=== PATIENT | male | born 1955 | race Caucasian/White ===

== ENCOUNTER 2020-07-03 09:06 | Emergency (ER) | payer OTHER, SELFPAY ==
[2020-07-03 09:17] VITALS: BP 135/74; PULSE 62; RESP 19; TEMP 36.7; O2SAT 98; BMI 31.1
--- NOTE | 2020-07-03 09:33 | HMH.EDUTC ---
[facility] [place] Clinical Impression: Urinary tract infection in male, Urinary retention Disposition: Home, Self-Care Condition on Discharge: Good Instructions: Urinary Tract Infection, Urine Culture, DI for Urinary Retention in Men Additional Instructions: Follow up with the urologist (Dr. Cobos). I put in a referral, but you need to call and schedule an appointment for further evaluation. Follow up with your regular doctor. We will give you a list of the ones that are taking new patients. Take the medications as directed. GO TO THE ER FOR ANY WORSENING SYMPTOMS OR CONCERNS, ESPECIALLY ANY FEVER OR WORSENING URINARY SYMPTOMS Prescriptions: Ciprofloxacin HCl [Cipro 500mg Tab] 500 mg PO BID 14 Days #28 tab Transmission Status: Received by [id number] Referrals: Shun Strauss DO [Primary Care Provider] - Kody Cobos MD [Staff Physician] - Time of Disposition: 09:45 Medical Decision Making - Medical Records Medical records reviewed: No: I reviewed the patient's medical records. - Terrence Inquiry Pt receiving controlled substance: No Vital Signs: 07/03/20 09:17 07/03/20 09:35 Temperature 98.1 F 98.1 F Temperature Source Oral Oral Pulse Rate 62 Pulse Rate [Left] 62 Respiratory Rate 19 19 Blood Pressure 135/74 Blood Pressure [Right Arm] 135/74 Blood Pressure Mean [Right Arm] 94 Blood Pressure Source Automatic Cuff Blood Pressure Source [Right Arm] Automatic Cuff Blood Pressure Position Sitting Blood Pressure Position [Right Arm] Sitting 02 Sat by Pulse Oximetry 98 Oxygen Delivery Method Room Air Room Air - Lab Data Lab results reviewed: Yes: I reviewed the patient's lab results. Lab Results 07/03/20 09:30: Urine Color Yellow, Urine Appearance Cloudy, Urine pH 7.5, Ur Specific [place] 1.020, Urine Protein Negative, Urine Glucose (UA) Negative, Urine Ketones Negative, Urine Blood 3+, Urine Nitrate Negative, Urine Bilirubin Negative, Urine Urobilinogen 1.0, Ur Leukocyte Esterase Negative, Urine RBC 5-10, Urine WBC 10-20, Ur Squamous Epith Cells Occasional, Urine Bacteria 2+ Orders (Tests/Meds): ORDERS Category Date Time Status Urine Culture Stat Micro 07/03/20 09:30 Received [facility] [place] - General Stated complaint: urnin problems Time Seen by Provider: 07/03/20 09:33 - History of Present Illness Provider Complaint: He c/o burning while urinating and urinary frequency. The urinary frequency is chronic, but it got worse 2 days ago. That is when the dysuria started too. He has noticed a small amount of bright red blood in his urine at times too over the past couple of days. He has a history of urinary retention. Before he moved here he was followed by urology in [place], [place]. He states that nothing really helped (medication and botox injections). - Related Data Previous Rx's Medication Instructions Recorded polyethylene glycoL 3350 [Miralax 17 gm PO DAILY #1 bottle 10/10/19 Powder] Ciprofloxacin HCl [Cipro 500mg 500 mg PO BID 14 Days #28 tab 07/03/20 Tab] Allergies Allergy/AdvReac Type Severity Reaction Status Date / Time amoxicillin [From Augmentin] Allergy Verified 10/10/19 13:02 clavulanic acid Allergy Verified 10/10/19 13:02 [From Augmentin] [facility] History - Hepatitis A Screen Attestation statement:: This patient has been screened for Hepatitis A risk factors. I have reviewed the patient's past medical history: Yes - Social History Alcohol Intake: never Occupational Status: other Housing: house ROS Obtained: Yes All systems reviewed & no additional complaints - Constitutional Constitutional: Denies chills, Denies fever(s), Denies poor appetite, Reports malaise - Eyes Eyes: Denies eye discharge - ENT Ears, Nose, Mouth, and Throat: Denies dizziness, Denies otalgia, Denies sore throat - Cardiovascular Cardiovascular: Denies chest pain - Respiratory Respiratory: No chest congestion, No cough -
[2020-07-03 09:35] VITALS: BP 135/74; PULSE 62; RESP 19; TEMP 36.7; O2SAT 98
[2020-07-03 09:56] LABS: Microscopic, Urine URINE MICROSCOPIC (MICROSCOPIC)
[2020-07-03 09:58] LABS: Appearance,Urine CLOUDY (Clear); Bilirubin,Urine Negative (Negative); Blood, Urine 3+ (Negative); Color,Urine YELLOW (Yellow); Glucose,Urine (UA) Negative (Negative); Ketones,Urine Negative (Negative); Leukocyte Esterase,Urine Negative (Negative); Nitrate,Urine Negative (Negative); PH,Urine 7.5 (5.0-8.5); Protein,Urine Negative (Negative)
[2020-07-03 10:14] LABS: Bacteria,Urine 2+ /lpf; Squamous Epithelial Cell,Urine Occasional #/hpf (0-5)
== END 2020-07-03 09:58 | disposition home or self-care (01) ==
PROVIDERS: Emergency Provider Nurse Practitioner Family; PCP Internal Medicine
DX: N30.00 Acute cystitis without hematuria (principal)
CPT/HCPCS: 81001; 87086; 99201

== ENCOUNTER 2020-07-12 01:59 | Observation (INO) | payer OTHER, SELFPAY ==
[2020-07-12] VITALS (16 sets, daily range): BP systolic 116–169; BP diastolic 57–74; PULSE 67–94; RESP 17–34; TEMP 36.3–37.2; O2SAT 88–93; BMI 30.7; BMI 30.4
--- NOTE | 2020-07-12 02:08 | XR_ITS ---
PROCEDURE: XR CHEST 2V CLINICAL HISTORY: SOB Stage IV black lung disease COMPARISON: No exams were available for comparison FINDINGS: The cardiomediastinal silhouette and pulmonary vascularity are within normal limits. There are no previous exams available for comparison. There is diffuse prominence of the interstitium as well as diffuse bilateral nodular opacities. The largest nodular density is in the right upper lobe measuring 3 cm. No obvious effusions. No acute bony abnormalities. IMPRESSION: Diffuse prominence of the interstitium with multiple bilateral ill-defined nodular opacities of the largest in the right upper lobe at 3 cm. Interstitial lung disease/coworkers pneumoconiosis is a consideration given patient's history. However, 1 cannot exclude the possibility of underlying pneumonia. Metastatic disease is also consideration. Please correlate with previous studies and patient's history. Chest CT may provide further evaluation. Dictated by: Himanshu Schneider MD 07/12/2020 06:26 Himanshu Schneider MD in [place] 07/12/2020 06:26
[2020-07-12 02:23] LABS: Basophils # 0.1 K/mm3 (0-0.2); Basophils % 0.3 % (0.1-2.0); Eosinophils # 0.5 K/mm3 (0.0-0.4); Eosinophils % 2.6 % (0.1-12.0); Hemoglobin 16.1 g/dL (14.1-18.0); Lymphocytes # 1.8 K/mm3 (0.7-4.5); Lymphocytes % 9.3 % (10-50); Mean Corpuscular Hemoglobin 32.5 pg (27.0-31.2); Mean Corpuscular Volume 92.7 fl (80-94); Mean Platelet Volume 8.7 fl (7.4-10.4); Monocytes # 0.4 K/mm3 (0.1-1.0); Monocytes % 2.1 % (1.7-9.3); Neutrophils # 16.3 K/mm3 (1.8-7.8); Neutrophils % 85.7 % (37.0-80.0); Platelet Count 292 K/mm3 (142-424); Red Blood Count 4.96 M/mm3 (4.60-6.20); Red Cell Distribution Width 12.6 % (11.5-17.5)
[2020-07-12 02:26] LABS: MANUAL DIFFERENTIAL MANUAL DIFFERENTIAL (MANUAL DIFF)
[2020-07-12 02:32] LABS: Alanine Aminotransferase 29 U/L (12-78); Albumin Level 4.4 g/dl (3.5-5.0); Albumin/Globulin Ratio 1.3 (1.1-1.8); Alkaline Phosphatase 102 U/L (38-126); Anion Gap 11.5 mEq/L (5-15); Aspartate Amino Transferase 39 U/L (17-59); Bilirubin,Total 0.6 mg/dl (0.2-1.3); Blood Urea Nitrogen 21 mg/dl (9-20); Calcium 10.8 mg/dl (8.4-10.2); Carbon Dioxide 30 mmol/L (22.0-30.0); Chloride 102 mmol/L (98-107); Creatinine Clearance Estimated 75 mL/min (50-200); Estimated Glomerular Filt Rate 61 ml/min (>60); GFR (African American) 74 ML/MIN (>60); Globulin 3.3 g/dL (1.3-3.2); Glucose 111 mg/dl (74-100); Potassium 3.5 mmoL/L (3.5-5.1); Sodium 140 mmol/L (136-145); Total Protein,Serum 7.7 g/dl (6.3-8.2)
[2020-07-12 02:58] LABS: Microscopic, Urine URINE MICROSCOPIC (MICROSCOPIC)
--- NOTE | 2020-07-12 02:58 | HMH.EDGENADL ---
ED Disposition Clinical Impression: Pneumonia Qualifiers: Pneumonia type: due to unspecified organism Laterality: right Lung location: upper lobe of lung Qualified Code(s): J18.9 - Pneumonia, unspecified organism Disposition: Admitted As Inpatient Condition on Discharge: Good Referrals: Shun Strauss DO [Primary Care Provider] - - Critical Care Critical Care Time: No Attestation: On 07/12/20, the high probability of a clinically significant, sudden or life threatening deterioration of the following system(s) required my full and direct attention, intervention and personal management. The time I documented below is in addition to time spent performing reported procedures but includes the following listed in this critical care notation. Medical Decision Making - Terrence Inquiry Pt receiving controlled substance: No Vital Signs: 07/12/20 01:59 Temperature 98.9 F Temperature Source Oral Pulse Rate [Left Radial] 91 H Respiratory Rate 17 Blood Pressure [Right Arm] 166/65 H Blood Pressure Mean [Right Arm] 98 Blood Pressure Source [Right Arm] Automatic Cuff Blood Pressure Position [Right Arm] Sitting 02 Sat by Pulse Oximetry 88 L Oxygen Delivery Method Room Air - Lab Data Lab Results 07/12/20 02:16: WBC 19.0 H, RBC 4.96, Hgb 16.1, Hct 46.0, MCV 92.7, MCH 32.5 H, MCHC 35.0, RDW 12.6, Plt Count 292, MPV 8.7, Neut % (Auto) 85.7 H, Lymph % (Auto) 9.3 L, [place] % (Auto) 2.1, Eos % (Auto) 2.6, Baso % (Auto) 0.3, Neut # (Auto) 16.3 H, Lymph # (Auto) 1.8, [place] # (Auto) 0.4, Eos # (Auto) 0.5 H, Baso # (Auto) 0.1 07/12/20 02:16: Sodium 140, Potassium 3.5, Chloride 102, Carbon Dioxide 30, Anion Gap 11.5, BUN 21 H, Creatinine 1.20, Estimated Creat Clear 75, Estimated GFR 61, Est GFR ( Amer) 74, Glucose 111 H, Calcium 10.8 H, Total Bilirubin 0.6, AST 39, ALT 29, Alkaline Phosphatase 102, Total Protein 7.7, Albumin 4.4, Globulin 3.3 H, Albumin/Globulin Ratio 1.3 Result diagrams: 07/12/20 02:16 07/12/20 02:16 Orders (Tests/Meds): ED MEDICATIONS Generic Name Dose Route Start Last Admin Trade Name Freq PRN Reason Stop Dose Admin Piperacillin Sod/Tazobactam 50 mls @ 100 mls/hr 07/12/20 03:00 Sod 3.375 gm/ Sodium Chloride IV 07/26/20 02:59 Q6H JASS Protocol Lactated Ringer's 1,000 mls @ 50 mls/hr 07/12/20 03:00 Lactated Ringer's 1000 Ml Bag IV 08/11/20 02:59 .Q20H JASS Discontinued Medications Generic Name Dose Route Start Last Admin Trade Name Freq PRN Reason Stop Dose Admin Azithromycin 500 mg 07/12/20 02:49 Zithromax 250mg Tablet PO 07/12/20 02:50 ONCE ONE Protocol Ondansetron HCl 4 mg 07/12/20 02:37 07/12/20 02:46 Zofran 4mg/2ml Vial IV 07/12/20 02:38 4 mg ONCE ONE Administration ORDERS Category Date Time Status XR chest 2V Stat Exams 07/12/20 02:08 Ordered Complete Blood Count Auto Diff Stat Lab 07/12/20 02:16 Results Covid-19 IgG/IgM ([facility]) Stat Lab 07/12/20 02:43 Ordered Lactic Acid Stat Lab 07/12/20 02:45 Ordered Urinalysis and Microscopic Stat Lab 07/12/20 02:40 Received Blood Culture Stat Micro 07/12/20 02:45 Ordered Medical Decision Narrative: In summary patient is a 65-year-old male with stage IV black lung presenting for cough and dyspnea. Patient is hemodynamically stable, not tachycardic, however patient is on oxygen. Patient's chest x-ray concerning for opacities in right upper lobe, due to patient's recent full course of ciprofloxacin, concern for Pseudomonas or staph is higher for pneumonia. Therefore patient was started on vancomycin, Zithromax, Zosyn. Patient denies any allergies to penicillin or amoxicillin that he knows of. Patient labs demonstrating a white count of 19, consistent with infection. Patient was admitted to medicine for further work-up. blood cultures ordered. Patient amenable to plan. General Adult HPI - General Chief complaint: Shortness of Breath/Dyspnea Stated complaint: cough,
[2020-07-12 03:02] LABS: Appearance,Urine CLEAR (Clear); Bilirubin,Urine Negative (Negative); Blood, Urine Negative (Negative); Color,Urine YELLOW (Yellow); Glucose,Urine (UA) Negative (Negative); Ketones,Urine Negative (Negative); Leukocyte Esterase,Urine Negative (Negative); Nitrate,Urine Negative (Negative); Protein,Urine Negative (Negative); Urobilinogen,Urine 0.2 EU/dl (0.2)
[2020-07-12 03:21] LABS: Eosinophils % 2 % (0-3); Lymphocytes % 13 % (10-50); Neutrophils % 84 % (42-76); Platelet Estimate Normal; RBC Morphology Normal; Total Cells Counted 100
[2020-07-12 03:23] LABS: Amorphous Sediment,Urine Trace /lpf; Bacteria,Urine Trace /lpf; WBC,Urine Occasional #/hpf (0-3)
[2020-07-12 03:29] LABS: Lactic Acid 1.1 mmol/L (0.7-2.1)
[2020-07-12 03:37] LABS: Coronavirus 19 IgG Antibody Negative (Negative); Coronavirus 19 IgM Antibody Negative (Negative)
--- NOTE | 2020-07-12 04:01 | PC.NURSE ---
spoke with pharmacy for vanc dose. suggested to give vanc 1500mg Q12H
--- NOTE | 2020-07-12 04:05 | PC.NURSE ---
report called to BRUCE Comer
--- NOTE | 2020-07-12 04:37 | PC.NURSE ---
patient up to floor via wheelchair.
--- NOTE | 2020-07-12 07:39 | P.CONPHA_ITS ---
[facility] [place] Pharmacy VTE Monitoring - Patient Demographics Admission date: 07/12/20 Report Date: 07/12/20 Time: 07:39 Allergies/Adverse Reactions: Patient Allergies clavulanic acid [From Augmentin] Allergy (Verified 10/10/19 13:02) Height: 1.65 m Weight: 82.826 kg Patient Problems: Current Active Problems Pneumonia (Acute) - VTE Risk Labs: VTE Related Lab Results Hgb 16.1 g/dL (14.1-18.0) 07/12/20 02:16 Hct 46.0 % (42.0-52.0) 07/12/20 02:16 Plt Count 292 K/mm3 (142-424) 07/12/20 02:16 BUN 21 mg/dl (9-20) H 07/12/20 02:16 Creatinine 1.20 mg/dl (0.66-1.25) 07/12/20 02:16 Estimated Creat Clear 75 mL/min (50-200) 07/12/20 02:16 Was VTE Risk Assessment Performed: No VTE Score: 3 VTE Risk Level: Low Risk Clinical Trial Participant: No - Prophylaxis VTE Prophylaxis Ordered?: Yes Types of VTE Prophylaxis: TEDS Knee High
--- NOTE | 2020-07-12 08:10 | CT_ITS ---
PROCEDURE: CT CHEST WO CON CLINICAL INDICATION: pneumonia Pneumonia, history of coal workers pneumoconiosis. COMPARISON: No exams were available for comparison TECHNIQUE: Axial images obtained with sagittal and coronal reformats. All CT scans at the facility use one or more dose reduction, viz: automated exposure control, ma/kV adjustment per patient size (including targeted exams where dose is matched to indication, i.e. head), or iterative reconstruction technique. FINDINGS: There are no previous exams available for comparison. Scattered small nodes are present in the mediastinum some of which are calcified. Coronary artery calcifications are present. Gynecomastia noted incidentally. There is mild nonspecific thickening of the distal esophagus. There is diffuse mosaic attenuation of the lungs bilaterally. No effusions. There is consolidation in the posterior aspect of the upper lobes in the superior segment of the lower lobes. There are numerous bilateral noncalcified pulmonary nodules. The largest is in the right upper lobe measuring 2.9 by 1.9 cm. This nodule has spiculated margins.. One nodule in the right upper lobe measures 12 mm and has an extension to the pleural surface laterally. There are other noncalcified nodules in the right upper lobe. Noncalcified nodules are also present in the left upper lobe measuring up to 1.4 cm. No acute bony anomalies. Upper abdominal images demonstrates a mildly prominent retroperitoneal lymph node anterior to the left adrenal gland measuring 1.5 cm. Possible cholelithiasis IMPRESSION: 1. Multiple bilateral pulmonary nodules. The largest is in the right upper lobe at 2.9 cm. This could represent metastatic disease.. 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 Progressive massive fibrosis would be included in the differential diagnosis. Correlation with old exams are needed. 2. A diffuse ground-glass/mosaic attenuation of the lungs with consolidation/atelectatic change in the upper lobes posteriorly in the superior segment of the lower lobes. Diffuse infection/inflammation considered. Consider atypical pneumonia, viral pneumonia/Covid 19 pneumonia. 3. Mildly prominent lymph node in the upper retroperitoneum. Dictated by: Himanshu Schneider MD 07/12/2020 09:09 Himanshu Schneider MD in [place] 07/12/2020 09:09
--- NOTE | 2020-07-12 08:10 | HMH.PHACONS ---
- Pharmacy Consult Date: 07/12/20 Time: 08:10 Referring provider: DR. ZHONG Reason for Consult:: VANCOMYCIN DOSING Allergies and ADEs:: Allergies Allergy/AdvReac Type Severity Reaction Status Date / Time clavulanic acid Allergy Verified 10/10/19 13:02 [From Augmentin] Home Medications:: Home Medications Medication Instructions Recorded Confirmed Type Amlodipine Besylate [Amlodipine 5 mg PO DAILY 07/12/20 07/12/20 History 5mg tab] Aspirin [Adult Aspirin Regimen] 81 mg PO DAILY 07/12/20 07/12/20 History Bimatoprost [Lumigan 0.01% Ophth 2.5 ml OP DAILY 07/12/20 07/12/20 History Soln 2.5mL] Budesonide/Formoterol Fumarate 2 puffs IH BID 07/12/20 07/12/20 History [Symbicort 160-4.5 Mcg Inhaler] Ciprofloxacin HCl [Cipro 500mg 500 mg PO BID 07/12/20 07/12/20 History Tab] Diclofenac Sodium [Diclofenac 75mg 75 mg PO BID 07/12/20 07/12/20 History Tab] Donepezil HCl [Aricept 10mg 10 mg PO HS 07/12/20 07/12/20 History tablet] Levocetirizine Dihydrochloride 5 mg PO DAILY 07/12/20 07/12/20 History Melatonin 5 mg PO HS 07/12/20 07/12/20 History Montelukast Sodium 10 mg PO PM 07/12/20 07/12/20 History Rosuvastatin Calcium 10 mg PO DAILY 07/12/20 07/12/20 History Height: 1.65 m Weight: 82.826 kg Laboratory Results:: Laboratory Results - last 24 hr 07/12/20 02:16: WBC 19.0 H, RBC 4.96, Hgb 16.1, Hct 46.0, MCV 92.7, MCH 32.5 H, MCHC 35.0, RDW 12.6, Plt Count 292, MPV 8.7, Neut % (Auto) 85.7 H, Lymph % (Auto) 9.3 L, [place] % (Auto) 2.1, Eos % (Auto) 2.6, Baso % (Auto) 0.3, Neut # (Auto) 16.3 H, Lymph # (Auto) 1.8, [place] # (Auto) 0.4, Eos # (Auto) 0.5 H, Baso # (Auto) 0.1, Total Counted 100, Neutrophils % (Manual) 84 H, Lymphocytes % (Manual) 13, Eosinophils % (Manual) 2, Basophils % (Manual) 1.0, Platelet Estimate Normal, RBC Morphology Normal 07/12/20 02:16: Sodium 140, Potassium 3.5, Chloride 102, Carbon Dioxide 30, Anion Gap 11.5, BUN 21 H, Creatinine 1.20, Estimated Creat Clear 75, Estimated GFR 61, Est GFR ( Amer) 74, Glucose 111 H, Calcium 10.8 H, Total Bilirubin 0.6, AST 39, ALT 29, Alkaline Phosphatase 102, Total Protein 7.7, Albumin 4.4, Globulin 3.3 H, Albumin/Globulin Ratio 1.3 07/12/20 02:16: SARS-CoV-2 IgG Ab (Rapid) Negative, SARS-CoV-2 IgM Ab (Rapid) Negative 07/12/20 02:40: Urine Color Yellow, Urine Appearance Clear, Urine pH 7.0, Ur Specific [place] 1.020, Urine Protein Negative, Urine Glucose (UA) Negative, Urine Ketones Negative, Urine Blood Negative, Urine Nitrate Negative, Urine Bilirubin Negative, Urine Urobilinogen 0.2, Ur Leukocyte Esterase Negative, Urine WBC Occasional, Amorphous Sediment Trace, Urine Bacteria Trace 07/12/20 02:50: Lactate 1.1 Medical History: Reports:: Hyperlipidemia, Hypertension, Myocardial Infarction Denies:: Cancer, Diabetes Mellitus Type 1, Diabetes Mellitus Type 2, Internal Pacemaker, MRSA Assessment and Plan - Assessment and plan all Dx Assessment and Plan for all problems:: BASED ON PATIENT FACTORS, RECOMMEND VANCOMYCIN 1500 MG IV Q18H. PHARMACY WILL FOLLOW DAILY AND ADJUST APPROPRIATE.
--- NOTE | 2020-07-12 09:30 | CT_ITS ---
PROCEDURE: CT ANGIO CHEST CLINCIAL INDICATION: r/o pe Shortness of air, pneumonia, pulmonary masses COMPARISON: No exams were available for comparison TECHNIQUE: IV Contrast: 70ML OPTIRAY 350 Axial images obtained with sagittal and coronal reformats. All CT scans at the facility use one or more dose reduction, viz: automated exposure control, ma/kV adjustment per patient size (including targeted exams where dose is matched to indication, i.e. head), or iterative reconstruction technique. FINDINGS: No evidence of aortic aneurysm or dissection. Pulmonary artery opacification is somewhat limited despite repeating the exam. No evidence of aortic aneurysm or dissection. No mediastinal or hilar mass. There are few scattered small mediastinal lymph nodes. Mild nonspecific thickening of the distal esophagus. No change in the persistent bilateral pulmonary nodules and right upper lobe mass with diffuse ground-glass/mosaic attenuation with some consolidation in the upper lobes posteriorly in the superior segment of the lower lobes. No effusions. No central obstructing lesions. Upper abdominal images show cholelithiasis. Mild gynecomastia. IMPRESSION: 1. No evidence of pulmonary embolus. 2. No change multiple bilateral pulmonary nodules and right upper lobe mass which could be neoplastic/metastatic disease or related to progressive massive fibrosis in this patient with history of coal workers pneumoconiosis. The CT findings however less typical for that etiology. 3. Persistent diffuse ground-glass attenuation of the lungs with consolidation in the upper lobes posteriorly and in the lower lobes posteriorly suggesting bilateral pneumonia. Consider atypical pneumonia, viral pneumonia/Covid 19 pneumonia Dictated by: Himanshu Schneider MD 07/12/2020 12:10 Himanshu Schneider MD in [place] 07/12/2020 12:10
--- NOTE | 2020-07-12 10:15 | HMH.PHAINT ---
home medication reconciliation completed using list from [facility] and pt interview.
--- NOTE | 2020-07-12 10:27 | HMH.PULMCON ---
*Admission Date: 07/12/20 *Reason for consult:: Acute hypoxic respiratory failure *History of present illness: Mr. 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 Patient on further questioning states that he has been complaining of cough for the last 10 days not related really worsening but however yesterday night all of a sudden he noted to have acute worsening shortness of breath associated with cough and wheeze. Patient did not complaining of any fevers or any chills. Patient only complains of intermittent productive cough with whitish phlegm On this visit patient denies fevers, denies chills, denies night sweats, denies hemoptysis, denies weight loss and denies loss of appetite. Patient has previously followed at [facility] with a lung doctor, receiving annual CT scans. [facility] History Medical History: Reports:: Hyperlipidemia, Hypertension, Myocardial Infarction Denies:: Cancer, Diabetes Mellitus Type 1, Diabetes Mellitus Type 2, Internal Pacemaker, MRSA *Have you ever received a pneumonia vaccine?: Yes *Have you received a flu vaccine this season?: Yes Other Medical History: Reports: Other Laterality Cases: Bilateral: Arthroscopy Knee Other Surgeries: Yes: Hernia Repair. No: Pacemaker Amputation: No Fractures: No - *Social History Last grade of school completed: None Smoking Status: Never smoker Alcohol Intake: never *Occupational Status:: disabled Housing: house Household Members: significant other, children *Travel in the last 8 weeks: None Family Hx:: Other [facility] Pulmonology ROS - Review of Systems Review of systems:: pertinent systems reviewed and negative unless documented below - *Respiratory Respiratory: Yes shortness of breath, Yes cough, Yes dyspnea on exertion Meds Home Medications Medication Instructions Recorded Confirmed Type Amlodipine Besylate [Amlodipine 5 mg PO DAILY 07/12/20 07/12/20 History 5mg tab] Aspirin [Adult Aspirin Regimen] 81 mg PO DAILY 07/12/20 07/12/20 History Bimatoprost [Lumigan 0.01% Ophth 1 drop OP PM 07/12/20 07/12/20 History Soln 2.5mL] Budesonide/Formoterol Fumarate 2 puffs IH BID 07/12/20 07/12/20 History [Symbicort 160-4.5 Mcg Inhaler] Ciprofloxacin HCl [Cipro 500mg 500 mg PO BID 07/12/20 07/12/20 History Tab] Diclofenac Sodium [Diclofenac 75mg 75 mg PO BID 07/12/20 07/12/20 History Tab] Donepezil HCl [Aricept 10mg 10 mg PO HS 07/12/20 07/12/20 History tablet] Levocetirizine Dihydrochloride 5 mg PO DAILY 07/12/20 07/12/20 History Melatonin 5 mg PO HS 07/12/20 07/12/20 History Montelukast Sodium 10 mg PO PM 07/12/20 07/12/20 History Rosuvastatin Calcium 10 mg PO HS 07/12/20 07/12/20 History Allergies Allergy/AdvReac Type Severity Reaction Status Date / Time clavulanic acid Allergy Verified 10/10/19 13:02 [From Augmentin] Exam Vital signs and Labs for Last 24 Hours: Temp Pulse Resp BP Pulse Ox 98.4 F 67 18 127/62 88 L 07/12/20 08:00 07/12/20 10:05 07/12/20 08:00 07/12/20 08:00 07/12/20 10:05 Laboratory Results - last 24 hr 07/12/20 02:16: WBC 19.0 H, RBC 4.96, Hgb 16.1, Hct 46.0, MCV 92.7, MCH 32.5 H, MCHC 35.0, RDW 12.6, Plt Count 292, MPV 8.7, Neut % (Auto) 85.7 H, Lymph % (Auto) 9.3 L, [place] % (Auto) 2.1, Eos % (Auto) 2.6, Baso % (Auto) 0.3, Neut # (Auto) 16.3 H, Lymph # (Auto) 1.8, [place] # (Auto) 0.4, Eos # (Auto) 0.5 H, Baso # (Auto) 0.1, Total Counted 100, Neutrophils % (Manual) 84 H, Lymphocytes % (Manual) 13, Eosinophils % (Manual) 2, Basophils % (Manual) 1.0, Platelet Estimate Normal, RBC Morphology Normal 07/12/20 02:16: Sodium 140, Potassium 3.5, Chloride 102, Carbon Dioxide 30, Anion Gap
[2020-07-12 11:33] LABS: Adenovirus,PCR Not Detected (NotDetected); Bordetella Pertussis Not Detected (NotDetected); Chlamydophila Pneumoniae, PCR Not Detected (NotDetected); Coronavirus 229E Not Detected (NotDetected); Coronavirus NL63 Not Detected (NotDetected); Coronavirus OC43 Not Detected (NotDetected); Coronovirus HKU1,PCR Not Detected (NotDetected); Human Metapneumovirus Not Detected (NotDetected); Influenza A, PCR Not Detected (NotDetected); Influenza AH1, 2009 Not Detected (NotDetected); Influenza AH1, PCR Not Detected (NotDetected); Influenza AH3,PCR Not Detected (NotDetected); Influenza B, PCR Not Detected (NotDetected); Mycoplasma Pneumoniae, PCR Not Detected (NotDetected); Parainfluenza 1, PCR Not Detected (NotDetected); Parainfluenza 2, PCR Not Detected (NotDetected); Parainfluenza 3, PCR Not Detected (NotDetected); Parainfluenza 4, PCR Not Detected (NotDetected); Respiratory Syncytial Virus Not Detected (NotDetected); Rhinovirus/Enterovirus Not Detected (NotDetected)
--- NOTE | 2020-07-12 13:08 | HMH.HP ---
*Admission Date: 07/12/20 *Chief complaint: soa *History of present illness: 65-year-old male with stage IV black lung presenting for cough and dyspnea to ed. Patient is on oxygen. Pt states for 2 days his breathing has become worse. Patient labs demonstrating a white count of 19, consistent with infection. Patient was admitted to medicine for further work-up. Pt states he does not have a pcp here just moved here from [place]. Worked in [employer] for 39 yrs. Pt states he is being followed by pulm. for his black lung. [facility] History I have reviewed the patient's past medical history: Yes Medical History: Reports:: Hyperlipidemia, Hypertension, Myocardial Infarction Denies:: Cancer, Diabetes Mellitus Type 1, Diabetes Mellitus Type 2, Internal Pacemaker, MRSA *Have you ever received a pneumonia vaccine?: Yes *Have you received a flu vaccine this season?: Yes Other Medical History: Reports: Other Laterality Cases: Bilateral: Arthroscopy Knee Other Surgeries: Yes: Hernia Repair. No: Pacemaker Amputation: No Fractures: No - *Social History Last grade of school completed: None Smoking Status: Never smoker Alcohol Intake: never *Occupational Status:: disabled Housing: house Household Members: significant other, children *Travel in the last 8 weeks: None Family Hx:: Other Review of Systems - Review of Systems Review of systems:: pertinent systems reviewed and negative unless documented below - Constitutional Denies fatigue, Denies weakness - Eyes Denies change in vision - ENT Denies bleeding gums, Denies neck pain - *Cardiovascular Denies chest pain at rest, Denies leg sores - *Respiratory Reports chest congestion, Reports cough, Reports shortness of breath - *Gastrointestinal Denies nausea, Denies vomiting - *Genitourinary Denies urinary hesitancy - *Musculoskeletal Denies joint pain - Integumentary/Breasts Denies rash - *Neurologic Denies behavioral changes - Psychiatric Denies lack of enjoyment, Denies panic attacks - Endocrine Denies flushing - Hematologic/Lymphatic Denies enlarged lymph nodes Meds Home Medications Medication Instructions Recorded Confirmed Type Amlodipine Besylate [Amlodipine 5 mg PO DAILY 07/12/20 07/12/20 History 5mg tab] Aspirin [Adult Aspirin Regimen] 81 mg PO DAILY 07/12/20 07/12/20 History Bimatoprost [Lumigan 0.01% Ophth 1 drop OP PM 07/12/20 07/12/20 History Soln 2.5mL] Budesonide/Formoterol Fumarate 2 puffs IH BID 07/12/20 07/12/20 History [Symbicort 160-4.5 Mcg Inhaler] Ciprofloxacin HCl [Cipro 500mg 500 mg PO BID 07/12/20 07/12/20 History Tab] Diclofenac Sodium [Diclofenac 75mg 75 mg PO BID 07/12/20 07/12/20 History Tab] Donepezil HCl [Aricept 10mg 10 mg PO HS 07/12/20 07/12/20 History tablet] Levocetirizine Dihydrochloride 5 mg PO DAILY 07/12/20 07/12/20 History Melatonin 5 mg PO HS 07/12/20 07/12/20 History Montelukast Sodium 10 mg PO PM 07/12/20 07/12/20 History Rosuvastatin Calcium 10 mg PO HS 07/12/20 07/12/20 History Allergies Allergy/AdvReac Type Severity Reaction Status Date / Time clavulanic acid Allergy Verified 10/10/19 13:02 [From Augmentin] Exam Vital signs and Labs for Last 24 Hours: Temp Pulse Resp BP Pulse Ox 98.4 F 67 18 127/62 88 L 07/12/20 08:00 07/12/20 10:05 07/12/20 08:00 07/12/20 08:00 07/12/20 10:05 Laboratory Results - last 24 hr 07/12/20 02:16: WBC 19.0 H, RBC 4.96, Hgb 16.1, Hct 46.0, MCV 92.7, MCH 32.5 H, MCHC 35.0, RDW 12.6, Plt Count 292, MPV 8.7, Neut % (Auto) 85.7 H, Lymph % (Auto) 9.3 L, [place] % (Auto) 2.1, Eos % (Auto) 2.6, Baso % (Auto) 0.3, Neut # (Auto) 16.3 H, Lymph # (Auto) 1.8, [place] # (Auto) 0.4, Eos # (Auto) 0.5 H, Baso # (Auto) 0.1, Total Counted 100, Neutrophils % (Manual) 84 H, Lymphocytes % (Manual) 13, Eosinophils % (Manual) 2, Basophils % (Manual) 1.0, Platelet Estimate Normal, RBC Morphology Normal 07/12/20 02:16: Sodium 140, Potassium 3.
--- NOTE | 2020-07-12 13:53 | PC.NURSE ---
RT administered Sodium Chloride neb 3ml to induce sputum, pt still could not produce a sample at this time. Cup left at bedside and pt encouraged to try and get sample at some point
--- NOTE | 2020-07-12 15:17 | CA_ITS ---
APPROVED REPORT EXAM: Comprehensive 2D, Doppler, and color-flow Echocardiogram Administrative Support Assistant: Nicolle Rae RVT Ht: 5 ft 5 in Wt: 182lbs BSA: 1.90 BP: 127/62 mmHg Indications: SOA,STAGE 4 BLACK LUNG,PNEUMONIA,STENT,HTN,HLD BUBBLE STUDY APPEARS NEGATIVE Echo Enhancing Agent Indication: Rule out Shunt Agent(s) / Amount(s) Used: Agitated Saline 10 cc 2D Dimensions LVOT 1.45 cm (M/F) 1.5-2.5 M-Mode Dimensions RVDd 2.47 cm (0.9-2.6) LVDd 4.10 cm (3.5-5.7) LVDs 2.89 cm (3.5-5.7) IVSd 1.14 cm (0.6-1.1) PWd 0.57 cm (0.6-1.1) EF (Teich) 57.00% FS 29.50% EDV (Teich) 74.20 mL ESV (Teich) 31.90 mL LV Diastology E/A Ratio 0.84 Mitral Valve MV A Velocity 82.00 (40-130 cm/s) Left Ventricle Left atrium is mildly enlarged, left ventricle is normal size, mild concentric left ventricular hypertrophy, visually estimated ejection fraction 55% with no regional wall motion abnormality. Grade 1 diastolic dysfunction seen without tissue Doppler evidence of raise left atrial pressure. Right Ventricle Right atrium and right ventricular normal size and contractility. Atria Intra-atrial septum is intact, there is no flow across the interatrial septum, agitated saline contrast reveals 25 intracardiac shunt. Aortic Valve Aortic valve is minimally thickened and fibrosed, there is no aortic stenosis or aortic insufficiency. Mitral Valve Mitral valve leaflets are minimally thickened, there is mild mitral regurgitation. Tricuspid Valve Tricuspid valve is grossly normal, there is mild tricuspid regurgitation, tricuspid regurgitation jet velocity is inadequate for calculation of the right ventricular systolic pressure. Pulmonic Valve Pulmonic valve is poorly visualized. Great Vessels Aortic root is normal size. Pericardium No significant pericardial effusion noted. Conclusion 1. Mildly enlarged left atrium, normal left ventricular size, mild concentric left ventricular hypertrophy, visually estimated ejection fraction 55% with no regional wall motion abnormality, grade 1 diastolic dysfunction seen without tissue Doppler evidence of raise left atrial pressure. 2. Mild mitral and tricuspid regurgitation. 3. Agitated saline contrast study fails to identify intracardiac shunt. 4. No significant pericardial effusion noted. Electronically signed by : Tavo Nunes, 07/15/2020 18:00:20
--- NOTE | 2020-07-12 15:36 | PC.NURSE ---
PT IS RESTING IN BED. NO COMPLAINTS OF DISCOMFORT. NOTIFIED THIS MORNING ABOUT PULMONOLOGY RECOMMENDATIONS AND HE STATED HE WAS OKAY WITH WHAT PULMONOLOGY SUGGESTED. NOTIFIED PHARMACY ABOUT PT POSSIBLY NEEDING ANTIBIOTICS CHANGED AND THEY STATED THEY WOULD TALK IT OVER WITH ABOUT STAYING WITH THE ANTIBIOTIC REGIMEN THAT WAS ALREADY ORDERED B/C PT HAD ALREADY FAILED OUTPATIENT TREATMENT. OF RIGHT NOW PT IS GETTING CEFIPIME, VANCOMYCIN AND LEVAQUIN. O2 SATURATION HAS MAINTAINED 88-90% T/O THE SHIFT ON 3.5 L NC. PT HAS NOT BEEN ON OXYGEN AT HOME. ACCORDING TO PT HE HAS BEEN FEELING REALLY GOOD AT HOME ALL THE WAY UP TILL THIS EPISODE STARTED. EATING AND DRINKING FAIR. LUNG SOUNDS CLEAR. BOWEL SOUNDS NORMAL. PT'S FAMILY CALLED WITH THE NAME AND NUMBER OF THE CLAIM REPRESENTATIVE PT FOLLOWED UP WITH AT [facility]. OFFICE IN [place] WAS NOTIFIED AND INFORMATION WAS FAXED TO BACK TO [facility]. WILL CONTINUE TO MONITOR.
--- NOTE | 2020-07-12 19:11 | PC.NURSE ---
report given to nettie
--- NOTE | 2020-07-12 19:16 | PC.NURSE ---
RT collected SPT and sent it to lab from 2nd floor.
--- NOTE | 2020-07-12 22:51 | PC.NURSE ---
Upon assessment, pt stated that he didn't sleep well overnight and has not had much sleep today. Pt requests medication for sleep. MD Alvarado notified. Benedryl 25 mg PO QHS ordered.
[2020-07-13] VITALS (10 sets, daily range): BP systolic 126–162; BP diastolic 46–79; PULSE 68–80; RESP 17–25; TEMP 36.4–36.9; O2SAT 90–95; BMI 30.5
[2020-07-13 07:15] LABS: Chloride 108 mmol/L (98-107); Potassium 3.9 mmoL/L (3.5-5.1); Sodium 137 mmol/L (136-145)
[2020-07-13 07:18] LABS: Anion Gap 13.9 mEq/L (5-15); Blood Urea Nitrogen 28 mg/dl (9-20); Calcium 9.8 mg/dl (8.4-10.2); Carbon Dioxide 19 mmol/L (22.0-30.0); Creatinine Clearance Estimated 81 mL/min (50-200); Estimated Glomerular Filt Rate 68 ml/min (>60); GFR (African American) 82 ML/MIN (>60); Glucose 195 mg/dl (74-100)
[2020-07-13 07:20] LABS: Eosinophils % 0.1 % (0.1-12.0); Hematocrit 39.2 % (42.0-52.0); Hemoglobin 13.4 g/dL (14.1-18.0); Lymphocytes # 0.6 K/mm3 (0.7-4.5); Lymphocytes % 4.3 % (10-50); Mean Corpuscular HGB Conc 34.3 g/dL (31.8-35.4); Mean Corpuscular Hemoglobin 31.8 pg (27.0-31.2); Mean Corpuscular Volume 92.7 fl (80-94); Mean Platelet Volume 8.9 fl (7.4-10.4); Monocytes # 0.3 K/mm3 (0.1-1.0); Monocytes % 2.1 % (1.7-9.3); Neutrophils # 13.7 K/mm3 (1.8-7.8); Neutrophils % 93.4 % (37.0-80.0); Platelet Count 221 K/mm3 (142-424); Red Blood Count 4.23 M/mm3 (4.60-6.20); Red Cell Distribution Width 12.9 % (11.5-17.5); White Blood Count 14.7 K/mm3 (4.8-10.8)
[2020-07-13 07:25] LABS: MANUAL DIFFERENTIAL MANUAL DIFFERENTIAL (MANUAL DIFF)
--- NOTE | 2020-07-13 07:39 | PC.NURSE ---
No acute changes since last assessment. Pt continues to remain on 3L NC. Lungs are diminished t/o. Pt has continued to be tachypneic this shift. Has c/o cough. Medications administered per dec. Pt has not voiced any complaints this shift other then not sleeping well. No other concerns at this time. Report given to Conner Ro RN
[2020-07-13 08:33] LABS: Lymphocytes % 9 % (10-50); Neutrophils % 91 % (42-76); Total Cells Counted 100
[2020-07-13 08:34] LABS: Platelet Estimate Normal; RBC Morphology Normal
--- NOTE | 2020-07-13 16:09 | P.PN_ITS ---
Internal Medicine - PN: Subj *Date: 07/13/20 *Time: 10:30 Interval history: pt laying in bed states he is feeling a little better. Pt states sputum is breaking up. per staff he has scant amount of blood tinged sputum and his o2 is being weaned. Exam Vital signs and Labs for Last 24 Hours: Temp Pulse Resp BP Pulse Ox 98.5 F 73 17 141/46 H 94 L 07/13/20 15:14 07/13/20 15:14 07/13/20 15:14 07/13/20 15:14 07/13/20 15:14 Laboratory Results - last 24 hr 07/13/20 06:45: WBC 14.7 H, RBC 4.23 L, Hgb 13.4 L, Hct 39.2 L, MCV 92.7, MCH 31.8 H, MCHC 34.3, RDW 12.9, Plt Count 221, MPV 8.9, Neut % (Auto) 93.4 H, Lymph % (Auto) 4.3 L, [place] % (Auto) 2.1, Eos % (Auto) 0.1, Baso % (Auto) 0.0 L, Neut # (Auto) 13.7 H, Lymph # (Auto) 0.6 L, [place] # (Auto) 0.3, Eos # (Auto) 0.0, Baso # (Auto) 0.0, Total Counted 100, Neutrophils % (Manual) 91 H, Lymphocytes % (Manual) 9 L, Platelet Estimate Normal, RBC Morphology Normal 07/13/20 06:45: Sodium 137, Potassium 3.9, Chloride 108 H, Carbon Dioxide 19 L D , Anion Gap 13.9, BUN 28 H D, Creatinine 1.10, Estimated Creat Clear 81, Estimated GFR 68, Est GFR ( Amer) 82, Glucose 195 H, Calcium 9.8 I & O for Last 24 hours: Intake & Output 07/11/20 07/12/20 07/13/20 07/14/20 11:59 11:59 11:59 11:59 Intake Total 360 / 360 1805 / 1805 360 / 360 Output Total 125 / 125 3225 / 3225 800 / 800 Balance 235 / 235 -1420 / -1420 -440 / -440 Weight 182 lb 9.6 oz 183 lb 4 oz Microbiology Reports for the Last 24 Hours: Microbiology 07/12/20 18:00 Sputum - Expectorated Sputum Gram Stain - Final - Constitutional no acute distress - *Routine HEENT Exam Head: Present: normocephalic Eye: Present: PERRL ENT: Present: mucous membranes moist - *Routine Neck Exam Present: supple. Absent: lymphadenopathy - *Routine Respiratory Exam Present: decreased breath sounds, rhonchi - *Routine Cardiovascular Exam Present: RRR - *Routine Abdominal Exam Present: soft, normoactive bowel sounds. Absent: tenderness - *Routine Extremities Exam Present: normal capillary refill. Absent: cyanosis, clubbing, edema - *Routine Skin Exam Present: warm. Absent: rash - *Routine Neurological Exam Present: alert, oriented X3 - Routine Psychiatric Exam Present: normal affect Assessment and Plan (1) Black lung disease Current visit: Yes Status: Acute Category: Medical Code(s): J60 - Coalworker's pneumoconiosis (2) Stented coronary artery Current visit: Yes Status: Acute Category: Surgical Code(s): Z95.5 - Presence of coronary angioplasty implant and graft (3) Pneumonia Current visit: Yes Status: Acute Qualifiers: Pneumonia type: due to unspecified organism Laterality: right Lung location: upper lobe of lung Qualified Code(s): J18.9 - Pneumonia, unspecified organism Category: Medical Code(s): J18.9 - Pneumonia, unspecified organism - Assessment and plan all Dx Assessment and Plan for all problems:: dr ramirez will round later today, all orders per dr ramirez continue to wean o2 oob
--- NOTE | 2020-07-13 20:11 | PC.NURSE ---
PATIENT A&O X4, LUNGS DIMINSHED, PULSES EQUAL. PATIENT WEANED OFF OF O2 DURING THIS RN SHIFT. THIS RN REASSESSED PATIENT'S O2 STATS. ON RA PATIENT RANGED FROM 93% TO 95%. PATIENT AMBULATED IN ROOM AND HALLWAY, TOLERATED WELL. PATIENT COMPLAINED OF HEART BURN. THIS RN NOTIFIED DR. KILLIAN WHO IS ONCALL FOR DR. ZHONG. ORDERED PEPCID 20MG PO BID. NO OTHER CONCERNS AT THIS TIME.
[2020-07-14] VITALS (13 sets, daily range): BP systolic 114–135; BP diastolic 45–59; PULSE 65–82; RESP 17–19; TEMP 36.4–36.8; O2SAT 93–100; BMI 30.7
--- NOTE | 2020-07-14 00:30 | PC.NURSE ---
2 lnc applied per RT at 2300. RA sat at this time noted at 88%. No SOA noted. Decreased O2 to 1 lnc at 0030, o2 sats noted at 94% on 2 lnc. Will continue to monitor.
--- NOTE | 2020-07-14 03:35 | PC.NURSE ---
Pt is alert and oriented x4. No acute changes noted from previous shift. PERRLA. Bilateral hand dairy feed sales consultant noted equal and strong. Cap refill < 3 seconds. Bilateral breath sounds noted clear t/o upon auscultation. Tolerated 1 lnc well with no c/o SOA. Will attempt to wean back to RA this am. Pt resting well with eyes closed. Active bowel sounds noted in all 4 quads. Tolerating diet well, no complaints. Denies N/V. Adequate urine output noted per urinal. Urine noted clear and bright yellow in color. Amb independently in room. No edema noted. Refused TEDS. VSS. Remains safe. Call light within reach. Will continue to monitor.
--- NOTE | 2020-07-14 04:00 | PC.NURSE ---
Pt weaned to RA at this time. O2 sat noted at 95%. Tolerating well. Will continue to monitor.
[2020-07-14 07:18] LABS: Basophils % 0.1 % (0.1-2.0); Eosinophils % 0.1 % (0.1-12.0); Hematocrit 39.9 % (42.0-52.0); Hemoglobin 13.7 g/dL (14.1-18.0); Lymphocytes # 1.1 K/mm3 (0.7-4.5); Lymphocytes % 6.9 % (10-50); Mean Corpuscular HGB Conc 34.3 g/dL (31.8-35.4); Mean Corpuscular Volume 93.1 fl (80-94); Mean Platelet Volume 8.7 fl (7.4-10.4); Monocytes # 0.5 K/mm3 (0.1-1.0); Monocytes % 3.2 % (1.7-9.3); Neutrophils # 14.4 K/mm3 (1.8-7.8); Neutrophils % 89.7 % (37.0-80.0); Platelet Count 236 K/mm3 (142-424); Red Blood Count 4.29 M/mm3 (4.60-6.20); Red Cell Distribution Width 12.9 % (11.5-17.5); White Blood Count 16.1 K/mm3 (4.8-10.8)
[2020-07-14 07:24] LABS: Chloride 111 mmol/L (98-107); Potassium 4.1 mmoL/L (3.5-5.1); Sodium 139 mmol/L (136-145)
[2020-07-14 07:27] LABS: Anion Gap 14.1 mEq/L (5-15); Blood Urea Nitrogen 28 mg/dl (9-20); Carbon Dioxide 18 mmol/L (22.0-30.0); Creatinine Clearance Estimated 89 mL/min (50-200); Estimated Glomerular Filt Rate 75 ml/min (>60); GFR (African American) 91 ML/MIN (>60); MANUAL DIFFERENTIAL MANUAL DIFFERENTIAL (MANUAL DIFF)
[2020-07-14 07:28] LABS: Calcium 9.8 mg/dl (8.4-10.2); Glucose 161 mg/dl (74-100)
[2020-07-14 07:58] LABS: Lymphocytes % 8 % (10-50); Monocytes % 2 % (2-9); Neutrophils % 90 % (42-76); Platelet Estimate Normal; RBC Morphology Normal; Total Cells Counted 100
--- NOTE | 2020-07-14 09:31 | HMH.ACPN2 ---
Internal Medicine - PN: Subj *Date: 07/15/20 *Time: 07:28 Interval history: doing better - sitting up - awaiting sputum Exam Vital signs and Labs for Last 24 Hours: Temp Pulse Resp BP Pulse Ox 98.2 F 81 18 135/56 L 96 07/14/20 07:35 07/14/20 07:35 07/14/20 07:35 07/14/20 07:35 07/14/20 07:35 Laboratory Results - last 24 hr 07/14/20 06:23: WBC 16.1 H, RBC 4.29 L, Hgb 13.7 L, Hct 39.9 L, MCV 93.1, MCH 32.0 H, MCHC 34.3, RDW 12.9, Plt Count 236, MPV 8.7, Neut % (Auto) 89.7 H, Lymph % (Auto) 6.9 L, [place] % (Auto) 3.2, Eos % (Auto) 0.1, Baso % (Auto) 0.1, Neut # (Auto) 14.4 H, Lymph # (Auto) 1.1, [place] # (Auto) 0.5, Eos # (Auto) 0.0, Baso # (Auto) 0.0, Total Counted 100, Neutrophils % (Manual) 90 H, Lymphocytes % (Manual) 8 L, Monocytes % (Manual) 2, Platelet Estimate Normal, RBC Morphology Normal 07/14/20 06:23: Sodium 139, Potassium 4.1, Chloride 111 H, Carbon Dioxide 18 L, Anion Gap 14.1, BUN 28 H, Creatinine 1.00, Estimated Creat Clear 89, Estimated GFR 75, Est GFR ( Amer) 91, Glucose 161 H, Calcium 9.8 I & O for Last 24 hours: Intake & Output 07/11/20 07/12/20 07/13/20 07/14/20 11:59 11:59 11:59 11:59 Intake Total 360 / 360 1805 / 1805 1481 / 1481 Output Total 125 / 125 3225 / 3225 2700 / 2700 Balance 235 / 235 -1420 / -1420 -1219 / -1219 Weight 182 lb 9.6 oz 183 lb 4 oz 184 lb 6.4 oz Microbiology Reports for the Last 24 Hours: Microbiology 07/12/20 02:45 Blood Blood Culture - Preliminary NO GROWTH AFTER 48 HOURS 07/12/20 02:45 Blood Blood Culture - Preliminary NO GROWTH AFTER 48 HOURS - Constitutional no acute distress, obese - *Routine HEENT Exam Head: Present: normocephalic Eye: Present: EOMI, PERRL ENT: Present: mucous membranes dry - *Routine Neck Exam Present: supple. Absent: JVD - *Routine Respiratory Exam Present: rhonchi - *Routine Cardiovascular Exam Present: RRR - *Routine Abdominal Exam Present: soft - *Routine Extremities Exam Present: full ROM - *Routine Skin Exam Present: intact - *Routine Neurological Exam Present: alert, oriented X3, CN II-XII intact - Routine Psychiatric Exam Present: normal affect Assessment and Plan (1) Black lung disease Current visit: Yes Status: Acute Category: Medical Code(s): J60 - Coalworker's pneumoconiosis (2) Stented coronary artery Current visit: Yes Status: Acute Category: Surgical Code(s): Z95.5 - Presence of coronary angioplasty implant and graft (3) Pneumonia Current visit: Yes Status: Acute Qualifiers: Pneumonia type: due to unspecified organism Laterality: right Lung location: upper lobe of lung Qualified Code(s): J18.9 - Pneumonia, unspecified organism Category: Medical Code(s): J18.9 - Pneumonia, unspecified organism (4) Obesity (BMI 30.0-34.9) Current visit: Yes Status: Acute Category: Medical Code(s): E66.9 - Obesity, unspecified (5) Pneumoconiosis Current visit: Yes Status: Acute Category: Medical Code(s): J64 - Unspecified pneumoconiosis (6) Pulmonary nodules Current visit: Yes Status: Acute Category: Medical Code(s): R91.8 - Other nonspecific abnormal finding of lung field (7) Cholelithiasis Current visit: Yes Status: Acute Qualifiers: Cholelithiasis location: gallbladder Cholecystitis presence: without cholecystitis Biliary obstruction: without biliary obstruction Qualified Code(s): K80.20 - Calculus of gallbladder without cholecystitis without obstruction Category: Medical Code(s): K80.20 - Calculus of gallbladder without cholecystitis without obstruction
[2020-07-14 11:59] LABS: Vancomycin,Trough 7.9 ug/mL (5.0-10.0)
--- NOTE | 2020-07-14 12:04 | HMH.PHACONS ---
- Pharmacy Consult Date: 07/14/20 Time: 12:04 Referring provider: DR. ZHONG Reason for Consult:: VANCOMYCIN TROUGH LEVEL Allergies and ADEs:: Allergies Allergy/AdvReac Type Severity Reaction Status Date / Time clavulanic acid Allergy Verified 10/10/19 13:02 [From Augmentin] Home Medications:: Home Medications Medication Instructions Recorded Confirmed Type Amlodipine Besylate [Amlodipine 5 mg PO DAILY 07/12/20 07/12/20 History 5mg tab] Aspirin [Adult Aspirin Regimen] 81 mg PO DAILY 07/12/20 07/12/20 History Bimatoprost [Lumigan 0.01% Ophth 1 drop OP PM 07/12/20 07/12/20 History Soln 2.5mL] Budesonide/Formoterol Fumarate 2 puffs IH BID 07/12/20 07/12/20 History [Symbicort 160-4.5 Mcg Inhaler] Ciprofloxacin HCl [Cipro 500mg 500 mg PO BID 07/12/20 07/12/20 History Tab] Diclofenac Sodium [Diclofenac 75mg 75 mg PO BID 07/12/20 07/12/20 History Tab] Donepezil HCl [Aricept 10mg 10 mg PO HS 07/12/20 07/12/20 History tablet] Levocetirizine Dihydrochloride 5 mg PO DAILY 07/12/20 07/12/20 History Melatonin 5 mg PO HS 07/12/20 07/12/20 History Montelukast Sodium 10 mg PO PM 07/12/20 07/12/20 History Rosuvastatin Calcium 10 mg PO HS 07/12/20 07/12/20 History Height: 1.65 m Weight: 83.642 kg Laboratory Results:: Laboratory Results - last 24 hr 07/14/20 06:23: WBC 16.1 H, RBC 4.29 L, Hgb 13.7 L, Hct 39.9 L, MCV 93.1, MCH 32.0 H, MCHC 34.3, RDW 12.9, Plt Count 236, MPV 8.7, Neut % (Auto) 89.7 H, Lymph % (Auto) 6.9 L, [place] % (Auto) 3.2, Eos % (Auto) 0.1, Baso % (Auto) 0.1, Neut # (Auto) 14.4 H, Lymph # (Auto) 1.1, [place] # (Auto) 0.5, Eos # (Auto) 0.0, Baso # (Auto) 0.0, Total Counted 100, Neutrophils % (Manual) 90 H, Lymphocytes % (Manual) 8 L, Monocytes % (Manual) 2, Platelet Estimate Normal, RBC Morphology Normal 07/14/20 06:23: Sodium 139, Potassium 4.1, Chloride 111 H, Carbon Dioxide 18 L, Anion Gap 14.1, BUN 28 H, Creatinine 1.00, Estimated Creat Clear 89, Estimated GFR 75, Est GFR ( Amer) 91, Glucose 161 H, Calcium 9.8 07/14/20 11:06: Vancomycin Trough 7.9 Medical History: Reports:: Hyperlipidemia, Hypertension, Myocardial Infarction Denies:: Cancer, Diabetes Mellitus Type 1, Diabetes Mellitus Type 2, Internal Pacemaker, MRSA Assessment and Plan (1) Black lung disease Current visit: Yes Status: Acute Category: Medical Code(s): J60 - Coalworker's pneumoconiosis (2) Stented coronary artery Current visit: Yes Status: Acute Category: Surgical Code(s): Z95.5 - Presence of coronary angioplasty implant and graft (3) Pneumonia Current visit: Yes Status: Acute Qualifiers: Pneumonia type: due to unspecified organism Laterality: right Lung location: upper lobe of lung Qualified Code(s): J18.9 - Pneumonia, unspecified organism Category: Medical Code(s): J18.9 - Pneumonia, unspecified organism - Assessment and plan all Dx Assessment and Plan for all problems:: BASED ON PATIENT FACTORS AND VANCOMYCIN TROUGH LEVEL, RECOMMEND CHANGING VANCOMYCIN TO 1500 MG IV Q12H. PHARMACY WILL CONTINUE TO MONITOR DAILY AND ADJUST APPROPRIATE.
--- NOTE | 2020-07-14 16:55 | PC.NURSE ---
PATIENT A&O X4, LUNGS RHONCHI HEARD, PERSISTENT DRY COUGH, PULSES EQUAL. PATIENT AMBULATES IN ROOM AND TOLERATES WELL. NO CONCERNS OR NEEDS AT THIS TIME.
[2020-07-15] VITALS: BP 127/63; PULSE 65; RESP 18; TEMP 36.5; O2SAT 96
[2020-07-15 04:00] VITALS: BP 114/55; PULSE 76; RESP 20; TEMP 36.4; O2SAT 96
--- NOTE | 2020-07-15 04:08 | PC.NURSE ---
Pt is alert and oriented x4. Rested well with eyes closed this shift. No acute changes noted from previous shift. PERRLA. Bilateral hand motor lodge clerk noted equal and strong. Cap refill < 3 seconds. Bilateral breath sounds noted clear t/o upon auscultation. Tolerated RA well with no c/o SOA. RR noted even and unlabored. Encouraged use of incentive spirometer while awake. Pt able to demonstrate appropriate use at beginning of shift. Abdomen noted soft and non-tender upon palpation. Denies N/V. Active bowel sounds noted in all 4 quads upon auscultation. Adequate urine output. Urine noted clear and bright yellow in color. Ambulates well independently to and from bathroom. No edema. Refused TEDS. VSS. Remains safe. Call light within reach. Will continue to monitor.
[2020-07-15 05:08] VITALS: BMI 30.8
[2020-07-15 06:17] VITALS: PULSE 58; PULSE 60; O2SAT 91
[2020-07-15 06:45] LABS: Eosinophils % 0.1 % (0.1-12.0); Hematocrit 38.9 % (42.0-52.0); Hemoglobin 13.3 g/dL (14.1-18.0); Lymphocytes # 0.6 K/mm3 (0.7-4.5); Lymphocytes % 4.8 % (10-50); Mean Corpuscular HGB Conc 34.3 g/dL (31.8-35.4); Mean Corpuscular Hemoglobin 31.7 pg (27.0-31.2); Mean Corpuscular Volume 92.3 fl (80-94); Mean Platelet Volume 8.6 fl (7.4-10.4); Monocytes # 0.5 K/mm3 (0.1-1.0); Monocytes % 3.9 % (1.7-9.3); Neutrophils # 12.4 K/mm3 (1.8-7.8); Neutrophils % 91.3 % (37.0-80.0); Platelet Count 242 K/mm3 (142-424); Red Blood Count 4.21 M/mm3 (4.60-6.20); Red Cell Distribution Width 13.1 % (11.5-17.5); White Blood Count 13.6 K/mm3 (4.8-10.8)
[2020-07-15 06:49] LABS: Chloride 108 mmol/L (98-107); Potassium 4.6 mmoL/L (3.5-5.1); Sodium 138 mmol/L (136-145)
[2020-07-15 06:52] LABS: Blood Urea Nitrogen 25 mg/dl (9-20); Creatinine Clearance Estimated 90 mL/min (50-200); Estimated Glomerular Filt Rate 85 ml/min (>60); GFR (African American) 103 ML/MIN (>60)
[2020-07-15 06:53] LABS: Anion Gap 13.6 mEq/L (5-15); Calcium 9.8 mg/dl (8.4-10.2); Carbon Dioxide 21 mmol/L (22.0-30.0); Glucose 156 mg/dl (74-100); MANUAL DIFFERENTIAL MANUAL DIFFERENTIAL (MANUAL DIFF)
[2020-07-15 07:59] VITALS: BP 135/64; PULSE 79; RESP 17; TEMP 36.7; O2SAT 99
[2020-07-15 08:00] VITALS: PULSE 79; RESP 17; O2SAT 99
[2020-07-15 09:44] LABS: Lymphocytes % 4 % (10-50); Monocytes % 2 % (2-9); Neutrophils % 94 % (42-76); Platelet Estimate Normal; RBC Morphology Normal; Total Cells Counted 100
[2020-07-15 11:58] VITALS: BP 127/58; PULSE 61; RESP 17; TEMP 36.7; O2SAT 97
--- NOTE | 2020-07-15 13:05 | HMH.PULMPN ---
Internal Medicine - PN: Subj *Date: 07/15/20 *Time: 13:05 Interval history: No Acute events overnight. Patient respiratory status improved, this morning on room air Exam Vital signs and Labs for Last 24 Hours: Temp Pulse Resp BP Pulse Ox 98.0 F 61 17 127/58 L 97 07/15/20 11:58 07/15/20 11:58 07/15/20 11:58 07/15/20 11:58 07/15/20 11:58 Laboratory Results - last 24 hr 07/15/20 06:39: WBC 13.6 H, RBC 4.21 L, Hgb 13.3 L, Hct 38.9 L, MCV 92.3, MCH 31.7 H, MCHC 34.3, RDW 13.1, Plt Count 242, MPV 8.6, Neut % (Auto) 91.3 H, Lymph % (Auto) 4.8 L, [place] % (Auto) 3.9, Eos % (Auto) 0.1, Baso % (Auto) 0.0 L, Neut # (Auto) 12.4 H, Lymph # (Auto) 0.6 L, [place] # (Auto) 0.5, Eos # (Auto) 0.0, Baso # (Auto) 0.0, Total Counted 100, Neutrophils % (Manual) 94 H, Lymphocytes % (Manual) 4 L, Monocytes % (Manual) 2, Platelet Estimate Normal, RBC Morphology Normal 07/15/20 06:39: Sodium 138, Potassium 4.6, Chloride 108 H, Carbon Dioxide 21 L, Anion Gap 13.6, BUN 25 H, Creatinine 0.90, Estimated Creat Clear 90, Estimated GFR 85, Est GFR ( Amer) 103, Glucose 156 H, Calcium 9.8 I & O for Last 24 hours: Intake & Output 07/12/20 07/13/20 07/14/20 07/15/20 23:59 23:59 23:59 23:59 Intake Total 1805 / 1805 720 / 720 1603 / 1603 1053 / 1053 Output Total 2450 / 2925 2200 / 2200 1825 / 2550 2575 / 2575 Balance -645 / -1120 -1480 / -1480 -222 / -947 -1522 / -1522 Weight 182 lb 9.6 oz 183 lb 4 oz 184 lb 6.4 oz 185 lb 3.013 oz Microbiology Reports for the Last 24 Hours: Microbiology 07/12/20 18:00 Sputum - Expectorated Sputum Gram Stain - Final 07/12/20 18:00 Sputum - Expectorated Sputum Sputum Culture - Final Normal Respiratory Patty - *Routine HEENT Exam Head: Present: normocephalic, atraumatic - *Routine Neck Exam Present: supple, full ROM. Absent: JVD, carotid bruit, lymphadenopathy - *Routine Respiratory Exam Present: CTA bilaterally. Absent: accessory muscle use, patient mechanically ventilated - *Routine Cardiovascular Exam Present: RRR, Normal S1, Normal S2 - *Routine Abdominal Exam Present: soft, normoactive bowel sounds. Absent: tenderness, distended, rebound, guarding - *Routine Extremities Exam Absent: cyanosis, clubbing, edema Assessment and Plan (1) Black lung disease Current visit: Yes Status: Acute Category: Medical Code(s): J60 - Coalworker's pneumoconiosis (2) Stented coronary artery Current visit: Yes Status: Acute Category: Surgical Code(s): Z95.5 - Presence of coronary angioplasty implant and graft (3) Pneumonia Current visit: Yes Status: Acute Qualifiers: Pneumonia type: due to unspecified organism Laterality: right Lung location: upper lobe of lung Qualified Code(s): J18.9 - Pneumonia, unspecified organism Category: Medical Code(s): J18.9 - Pneumonia, unspecified organism (4) Obesity (BMI 30.0-34.9) Current visit: Yes Status: Acute Category: Medical Code(s): E66.9 - Obesity, unspecified (5) Pneumoconiosis Current visit: Yes Status: Acute Category: Medical Code(s): J64 - Unspecified pneumoconiosis (6) Pulmonary nodules Current visit: Yes Status: Acute Category: Medical Code(s): R91.8 - Other nonspecific abnormal finding of lung field (7) Cholelithiasis Current visit: Yes Status: Acute Qualifiers: Cholelithiasis location: gallbladder Cholecystitis presence: without cholecystitis Biliary obstruction: without biliary obstruction Qualified Code(s): K80.20 - Calculus of gallbladder without cholecystitis without obstruction Category: Medical Code(s): K80.20 - Calculus of gallbladder without cholecystitis without obstruction - Assessment and plan all Dx Assessment and Plan for all problems:: #Acute hypoxic respiratory failure: #Community acquired pneumonia 65-year-old female with no prior respiratory complaints, not using any inhalers at home present with worsening cough
--- NOTE | 2020-07-15 13:10 | HMH.DCSUM ---
General - General Admission date:: 07/12/20 Discharge date: 07/15/20 HPI HPI: 65-year-old male with stage IV black lung presenting for cough and dyspnea to ed. Patient is on oxygen. Pt states for 2 days his breathing has become worse. Patient labs demonstrating a white count of 19, consistent with infection. Patient was admitted to medicine for further work-up. Pt states he does not have a pcp here just moved here [place]. 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 Pt states he is being followed by pulm. for his black lung. Hospital Course Hospital Course: pt did well and improved slowly in hospital on ivf and abx - he was seen by pulmonary-. 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 Patient on further questioning states that he has been complaining of cough for the last 10 days not related really worsening but however yesterday night all of a sudden he noted to have acute worsening shortness of breath associated with cough and wheeze. Patient did not complaining of any fevers or any chills. Patient only complains of intermittent productive cough with whitish phlegm On this visit patient denies fevers, denies chills, denies night sweats, denies hemoptysis, denies weight loss and denies loss of appetite. Patient has previously followed at [facility] with a lung doctor, receiving annual CT scans. T chest showed bilateral groundglass opacities but did not show any obvious consolidation to support patient's acute hypoxic respiratory failure needing 4 L of oxygen, saturating at 90%. Patient acute presentation is also highly concerning for pulmonary embolism. Plan: - F/U resp Viral PCR - (ordered) - F/U CT PE protocol rule out pulmonary embolism - De-escalate antibiotics to community-acquired pneumonia with ceftriaxone and azithromycin for a total of 5 days - De-escalate steroids to prednisone 40 mg daily for total of 5 days - DuoNebs every 6 hours as needed for shortness of breath and wheezing. #Right upper lobe lung mass: #Bilateral pulmonary nodules: Patient is following at [facility] receiving annual CT scans. As per the patient, he was told that he is having multiple pulmonary nodules that has been stable. Neither confirm nor deny this fact at this point of time. However the nodules appear highly suspicious for malignant process. Plan: -Please consider obtaining CT imaging disks from [facility] so we can ask the radiologist at [facility] to compare and document the stability of these nodules. If in case Patient did not receive any CT scans as claimed, then will proceed with a PET scan pt had ct of chest evidence of aortic aneurysm or dissection. Pulmonary artery opacification is somewhat limited despite repeating the exam. No evidence of aortic aneurysm or dissection. No mediastinal or hilar mass. There are few scattered small mediastinal lymph nodes. Mild nonspecific thickening of the distal esophagus. No change in the persistent bilateral pulmonary nodules and right upper lobe mass with diffuse ground-glass/mosaic attenuation with some consolidation in the upper lobes posteriorly in the superior segment of the lower lobes. No effusions. No central obstructing lesions. Upper abdominal images show cholelithiasis. Mild gynecomastia. IMPRESSION: 1. No evidence of pulmonary embolus. 2. No change multiple bilateral pulmonary nodules and right upper lobe mass which could be neoplastic/metastatic disease or related to progressive massive fibrosis in this patient with history of coal workers pneumoconiosis. The CT findings however less typical for that etiology. 3. Persistent diffuse ground-glass at
== END 2020-07-15 14:30 | disposition home or self-care (01) ==
LOC: ER 03:04 → 2ND 03:08
PROVIDERS: Internal Medicine Pulmonary Disease; Nurse Practitioner Family; Admitting Provider Emergency Medicine; Emergency Provider Emergency Medicine; PCP Internal Medicine; Visit Provider Emergency Medicine
DX: J18.9 Pneumonia, unspecified organism (principal); J60 Coalworker's pneumoconiosis; J64 Unspecified pneumoconiosis; J96.01 Acute respiratory failure with hypoxia; K80.20 Calculus of gallbladder without cholecystitis without obstruction; I10 Essential (primary) hypertension; E78.5 Hyperlipidemia, unspecified; I25.2 Old myocardial infarction; I25.10 Atherosclerotic heart disease of native coronary artery without angina pectoris
CPT/HCPCS: 36415; 71046; 71250; 71275; 80048; 80053; 80202; 81001; 83605; 85007; 85025; 86328; 87040; 87070; 87205; 87486; 87581; 87633; 87798; 93306; 94640; 94761; 96365; 96367; 96375; 99285; G0378; J1956; J2405; J2543; J3370; Q9967

== ENCOUNTER → 2020-07-31 13:41 | Outpatient (CLI) | payer MEDICARE, SELFPAY ==
[2020-07-31 15:12] LABS: Coronavirus 19 IgG Antibody Negative (Negative); Coronavirus 19 IgM Antibody Negative (Negative)
== END ==
PROVIDERS: PCP Family Medicine; Visit Provider Urology
DX: Z01.818 Encounter for other preprocedural examination (principal); R32 Unspecified urinary incontinence
CPT/HCPCS: 36415; 86328

== ENCOUNTER 2020-08-02 09:11 | Day surgery (SDC) | payer MEDICARE, SELFPAY ==
[2020-07-31 11:29] VITALS: BMI 31.6
[2020-08-02 09:36] VITALS: BP 140/66; PULSE 78; RESP 19; TEMP 36.7; O2SAT 96
[2020-08-02 11:15] VITALS: BP 146/50; PULSE 67; RESP 18; TEMP 36.4; O2SAT 91
[2020-08-02 11:28] VITALS: BP 146/50; PULSE 67; RESP 18; O2SAT 91
--- NOTE | 2020-08-02 13:46 | HMH.OPNOTE ---
Date of procedure: 08/02/20 Pre-op Diagnosis:: Urge incontinence Post-op Diagnosis:: Urge incontinence/evidence of incomplete bladder emptying Procedure performed:: Cystourethroscopy Surgeon:: Kody Cobos MD Anesthesia: local Estimated blood loss (mL): 0 Clinical Note:: Patient is a 65-year-old white male with a long history of urinary urgency, frequency and urge incontinence. Presents for cystoscopic evaluation today. He was started on Toviaz last week and states some slight improvement in the frequency. Operative findings:: There was moderate prostatic hyperplasia, there was bladder sediment noted customer support representative of incomplete bladder emptying, high bladder neck was noted. Operative note:: Patient taken to the operating room after informed consent was obtained. On the stretcher patient was prepped and draped in the standard surgical fashion and 2% lidocaine placed into the urethra. Urethra was clamped for 5 minutes and after 5 minutes the flexible cystoscope introduced into the urethral meatus and passed to the prostatic urethra which showed some moderate hyperplasia. The bladder was entered and examined in a systematic fashion. There was bladder debris noted in the bladder floating around in at the base the bladder was significant amount of particulate debris this looks like it has been there for quite a while. The ureteral orifices in their normal anatomic position. During cystoscopy the bladder was filled and patient has to tell me when he felt the for sensation of filling which was at 250 cc. He had some urgency at 350 cc. At 350 cc was noted to be some moderate trabeculation of the bladder. No mucosal abnormalities or or diverticula noted. Bladder neck appeared to be substantially elevated. Scope then removed and prostate did not appear as hyperplastic as upon entering. Scope removed and the patient tolerated the procedure well. We discussed the findings today and the most notable finding was that of the bladder debris. His previous bladder scan indicated he was emptying out pretty well and his subjective sensation of feeling is normal. His findings are a bit conflicting at this point. I am going to add Flomax to his regimen. He will continue the Toviaz as well as he has had some improvement. See him back in 3 weeks in follow-up with a bladder scan. Possibilities at this point include a transurethral incision of the prostate to help empty, more formal urodynamics and possible InterStim placement. Condition: stable Disposition: same day Specimens:: None Complications:: None
== END 2020-08-02 11:30 | disposition home or self-care (01) ==
LOC: OUTP 09:14
PROVIDERS: PCP Family Medicine; Visit Provider Urology
PROC: (CPT 52000; principal; 2020-08-02 10:15)
DX: N39.41 Urge incontinence (principal); Z88.1 Allergy status to other antibiotic agents; Z79.82 Long term (current) use of aspirin; Z79.899 Other long term (current) drug therapy; E78.5 Hyperlipidemia, unspecified; I10 Essential (primary) hypertension; I25.2 Old myocardial infarction; M19.90 Unspecified osteoarthritis, unspecified site; Z87.39 Personal history of other diseases of the musculoskeletal system and connective tissue; Z86.69 Personal history of other diseases of the nervous system and sense organs
CPT/HCPCS: 52000

== ENCOUNTER 2020-08-10 20:28 | Observation (INO) | payer MEDICARE, OTHER, SELFPAY ==
[2020-08-10 21:10] VITALS: BP 152/86; PULSE 90; RESP 28; O2SAT 79; BMI 22.6
--- NOTE | 2020-08-10 21:15 | PC.NURSE ---
PATIENT SENT TO ER PER ELIANE CLEMENT APRN FOR FURTHER EVALUATION. REPORT GIVEN TO Sade ALMANZA RN
[2020-08-10 21:35] VITALS: BP 139/65; PULSE 93; RESP 22; O2SAT 98
--- NOTE | 2020-08-10 21:36 | ECG_ITS ---
APPROVED REPORT Exam: Resting ECG HR:81 bpm ECG Measurements Heart Rate 81 AXES WI 176 P 57 QRSd 88 QRS -16 QT 360 T 33 QTc 418 Conclusion Sinus rhythm with Artifact LAD Abnormal ECG Electronically signed by : Bossman Duckworth, 08/16/2020 11:37:30
--- NOTE | 2020-08-10 21:36 | XR_ITS ---
PROCEDURE: XR CHEST PORTABLE CLINICAL HISTORY: soa COMPARISON: CR XR CHEST 2V from 07/12/[address] ANGIO CHEST from 07/12/2020 FINDINGS: This is an adequate inspiration. Diffuse bilateral perihilar and lower lobe ill-defined opacities are seen which appear to be superimposed upon underlying chronic interstitial changes seen on the previous chest film. Cardiac size is normal and there is no pulmonary congestion. There is a stable somewhat ill-defined pulmonary nodule right upper lobe. There may be a small amount of fluid in both costophrenic angles. IMPRESSION: Diffuse bilateral perihilar and lower lobe ill-defined opacities most suggestive of acute air space disease likely superimposed upon underlying chronic interstitial changes Dictated by: Dr. Ji Xiong MD 08/11/2020 08:58 Dr. Ji Xiong MD in [place] 08/11/2020 08:58
[2020-08-10 21:37] VITALS: BP 154/67; PULSE 91; RESP 25; TEMP 37.1; O2SAT 79; BMI 31.2
[2020-08-10 21:40] LABS: Basophils % 0.3 % (0.1-2.0); Eosinophils # 0.2 K/mm3 (0.0-0.4); Eosinophils % 1.9 % (0.1-12.0); Hematocrit 40.3 % (42.0-52.0); Hemoglobin 14.2 g/dL (14.1-18.0); Lymphocytes # 0.6 K/mm3 (0.7-4.5); Lymphocytes % 5.7 % (10-50); Mean Corpuscular HGB Conc 35.3 g/dL (31.8-35.4); Mean Corpuscular Hemoglobin 32.1 pg (27.0-31.2); Mean Corpuscular Volume 91.1 fl (80-94); Mean Platelet Volume 8.1 fl (7.4-10.4); Monocytes # 0.5 K/mm3 (0.1-1.0); Monocytes % 4.2 % (1.7-9.3); Neutrophils # 9.6 K/mm3 (1.8-7.8); Neutrophils % 87.8 % (37.0-80.0); Platelet Count 256 K/mm3 (142-424); Red Blood Count 4.43 M/mm3 (4.60-6.20); Red Cell Distribution Width 13.1 % (11.5-17.5); White Blood Count 10.9 K/mm3 (4.8-10.8)
[2020-08-10 21:43] LABS: MANUAL DIFFERENTIAL MANUAL DIFFERENTIAL (MANUAL DIFF)
[2020-08-10 21:49] LABS: Chloride 103 mmol/L (98-107); Potassium 3.7 mmoL/L (3.5-5.1); Sodium 138 mmol/L (136-145)
[2020-08-10 21:52] LABS: Anion Gap 12.7 mEq/L (5-15); Blood Urea Nitrogen 15 mg/dl (9-20); Carbon Dioxide 26 mmol/L (22.0-30.0); Creatinine Clearance Estimated 80 mL/min (50-200); Estimated Glomerular Filt Rate 68 ml/min (>60); GFR (African American) 82 ML/MIN (>60)
[2020-08-10 21:53] LABS: Calcium 10.6 mg/dl (8.4-10.2); Glucose 137 mg/dl (74-100)
[2020-08-10 21:56] LABS: Coronavirus 19 IgG Antibody Negative (Negative); Coronavirus 19 IgM Antibody Negative (Negative)
--- NOTE | 2020-08-10 21:56 | HMH.EDGENADL ---
ED Disposition Clinical Impression: HCAP (healthcare-associated pneumonia), Black lung disease, Pneumoconiosis, Pulmonary mass Respiratory failure with hypoxia Qualifiers: Chronicity: acute Qualified Code(s): J96.01 - Acute respiratory failure with hypoxia Disposition: Admitted As Inpatient Condition on Discharge: Serious Referrals: Silvio Weber MD [Primary Care Provider] - - Critical Care Critical Care Time: Yes Attestation: On 08/10/20, the high probability of a clinically significant, sudden or life threatening deterioration of the following system(s) required my full and direct attention, intervention and personal management. The time I documented below is in addition to time spent performing reported procedures but includes the following listed in this critical care notation. Total Critical Care Time: 35 Vital system(s) involved:: Respiratory Failure My critical care processes included: Assessment & monitoring of V/S, Initial and Re-exams, Data Review/Interpretation, Coordinating Care, Medication Orders and management, Documentation Medical Decision Making - Medical Records Medical records reviewed: Yes: I reviewed the patient's medical records. - Terrence Inquiry Pt receiving controlled substance: No Vital Signs: 08/10/20 21:10 08/10/20 21:35 08/10/20 21:37 Temperature 98.7 F Temperature Source Oral Pulse Rate [Right Brachial] 90 93 H 91 H Respiratory Rate 28 H 22 25 H Blood Pressure [Right Arm] 152/86 H 139/65 154/67 H Blood Pressure Mean [Right Arm] 108 89 96 Blood Pressure Source [Right Arm] Automatic Cuff Automatic Cuff Blood Pressure Position [Right Arm] Sitting Supine 02 Sat by Pulse Oximetry 79 L 98 79 L Oxygen Delivery Method Room Air Non-Rebreather Room Air Oxygen Flow Rate (LPM) 08/10/20 22:00 08/10/20 23:00 08/10/20 23:28 Temperature Temperature Source Pulse Rate [Right Brachial] 81 79 Respiratory Rate 22 22 Blood Pressure [Right Arm] 146/67 H 121/62 Blood Pressure Mean [Right Arm] 93 81 Blood Pressure Source [Right Arm] Automatic Cuff Automatic Cuff Blood Pressure Position [Right Arm] Sitting Sitting 02 Sat by Pulse Oximetry 96 94 L 91 L Oxygen Delivery Method Non-Rebreather Non-Rebreather Nasal Cannula Oxygen Flow Rate (LPM) 12 10 4 - Lab Data Lab results reviewed: Yes: I reviewed the patient's lab results. Lab Results 08/10/20 21:32: WBC 10.9 H, RBC 4.43 L, Hgb 14.2, Hct 40.3 L, MCV 91.1, MCH 32.1 H, MCHC 35.3, RDW 13.1, Plt Count 256, MPV 8.1, Neut % (Auto) 87.8 H, Lymph % (Auto) 5.7 L, [place] % (Auto) 4.2, Eos % (Auto) 1.9, Baso % (Auto) 0.3, Neut # (Auto) 9.6 H, Lymph # (Auto) 0.6 L, [place] # (Auto) 0.5, Eos # (Auto) 0.2, Baso # (Auto) 0.0, Total Counted 100, Neutrophils % (Manual) 87 H, Band Neutrophils % 5.0, Lymphocytes % (Manual) 6 L, Monocytes % (Manual) 2, Platelet Estimate Normal, RBC Morphology Normal 08/10/20 21:32: D-Dimer 0.48 08/10/20 21:32: Sodium 138, Potassium 3.7, Chloride 103, Carbon Dioxide 26, Anion Gap 12.7, BUN 15, Creatinine 1.10, Estimated Creat Clear 80, Estimated GFR 68, Est GFR ( Amer) 82, Glucose 137 H, Calcium 10.6 H, Troponin I < 0.01 08/10/20 21:32: SARS-CoV-2 IgG Ab (Rapid) Negative, SARS-CoV-2 IgM Ab (Rapid) Negative 08/10/20 21:32: Total Bilirubin 0.6, Direct Bilirubin 0.0, Conjugated Bilirubin 0.0, Indirect Bilirubin 0.6, Unconjugated Bilirubin 0.6, AST 33, ALT 22, Alkaline Phosphatase 66, Total Protein 7.2, Albumin 4.0 08/10/20 21:32: NT-Pro-B Natriuret Pep 274 H 08/10/20 22:26: Specimen Source R/r, O2 % Nrb, ABG pH 7.46 H, ABG pCO2 32.7 L, ABG pO2 81.9, ABG HCO3 22.8, ABG Total CO2 23.8, ABG O2 Saturation 96, ABG Base Excess -1.0, Himanshu Test Y 08/10/20 22:52: Lactate 1.0 Result diagrams: 08/10/20 21:32 08/10/20 21:32 Orders (Tests/Meds): ED MEDICATIONS Generic Name Dose Route Start Last Admin Trade Name Freq PRN Reason Stop Dose Admin Cefepime HCl 2 gm/ Sodium 100 mls @ 100 mls/hr 08/10/20 23:00
[2020-08-10 21:58] LABS: D-Dimer 0.48 ug/mL (0.15-8.0)
[2020-08-10 21:59] LABS: Lymphocytes % 6 % (10-50); Monocytes % 2 % (2-9); Neutrophils % 87 % (42-76); Platelet Estimate Normal; RBC Morphology Normal; Total Cells Counted 100
[2020-08-10 22:00] VITALS: BP 146/67; PULSE 81; RESP 22; O2SAT 96
[2020-08-10 22:14] LABS: Troponin I < 0.01 ng/ml (0.00-0.034)
[2020-08-10 22:22] LABS: Alanine Aminotransferase 22 U/L (12-78); Alkaline Phosphatase 66 U/L (38-126); Aspartate Amino Transferase 33 U/L (17-59); Bilirubin,Indirect 0.6 mg/dL (0.0-0.9); Bilirubin,Total 0.6 mg/dl (0.2-1.3); Bilirubin,Unconjugated 0.6 mg/dL (0.0-1.1)
[2020-08-10 22:23] LABS: Total Protein,Serum 7.2 g/dl (6.3-8.2)
[2020-08-10 22:27] LABS: ABG HCO3 22.8 mmhg (22.0-26.0); ABG Oxygen Saturation 96 % (90-100); ABG PCO2 32.7 mmhg (35.0-45.0); ABG PH 7.46 mmol/L (7.35-7.45); ABG PO2 81.9 mmhg (80-100); ABG TCO2 23.8 mmhg (23-27)
[2020-08-10 22:29] LABS: Allen's Test Y; Oxygen NRB %; Source R/R
[2020-08-10 22:32] LABS: NT Pro Brain Natriuretic Pep. 274 pg/mL (0-125)
[2020-08-10 23:00] VITALS: BP 121/62; PULSE 79; RESP 22; O2SAT 94
--- NOTE | 2020-08-10 23:03 | PC.NURSE ---
This RN spoke with Lui, pharmacist for vanc dosing. Orders for 1500mg Q18H
[2020-08-10 23:28] VITALS: O2SAT 91
[2020-08-11] VITALS (14 sets, daily range): BP systolic 109–149; BP diastolic 52–77; PULSE 68–98; RESP 18–24; TEMP 36.4–37.2; O2SAT 90–96; BMI 29.9
--- NOTE | 2020-08-11 00:01 | PC.NURSE ---
speaking with dr horowitz
--- NOTE | 2020-08-11 00:05 | PC.NURSE ---
Lab states one hour and 6 monutes remaining on the covid swab
[2020-08-11 01:22] LABS: Troponin I 0.01 ng/ml (0.00-0.034)
--- NOTE | 2020-08-11 01:37 | PC.NURSE ---
He arrived to floor via w/c at 0131.
--- NOTE | 2020-08-11 03:46 | INFXCTL.NOTE ---
A&OX3. GRANITE CHIP TERRAZZO FINISHER EQUAL BILAT. PERRLA. CLEAR LUNG SOUNDS PER AUSCULTATION. 4LNC TOLERATED WELL, UNABLE TO TITRATE OXYGEN THIS SHIFT. DRY COUGH NOTED THIS SHIFT, INSTRUCTED PT TO PROVIDE STAFF WITH A SAMPLE OF SPUTUM IF COUGH BECAME PRODUCTIVE, PROVIDED PT WITH SPECIMEN CUP, PT VERBALIZED UNDERSTANDING. NSR NOTED PER COMPOSITOR APPRENTICE. PULSES +2. ABDOMEN NONDISTENDED, ACTIVE BOWEL SOUNDS, SOFT AND NONTENDER PER PALPATION. INDEPENDENT WITH ADLS. LOCKED UP NITRO IN MED DRAWER ON ADMISSION. VSS. WILL CONTINUE TO MONITOR.
[2020-08-11 04:34] LABS: Troponin I < 0.01 ng/ml (0.00-0.034)
--- NOTE | 2020-08-11 08:53 | HMH.PHACONS ---
- Pharmacy Consult Date: 08/11/20 Time: 08:53 Referring provider: DR. ZAMORA Reason for Consult:: VANCOMYCIN DOSING Allergies and ADEs:: Allergies Allergy/AdvReac Type Severity Reaction Status Date / Time clavulanic acid Allergy Unknown Verified 08/11/20 08:24 [From Augmentin] allergy reaction Home Medications:: Home Medications Medication Instructions Recorded Confirmed Type Amlodipine Besylate [Amlodipine 5 mg PO DAILY 07/12/20 08/11/20 History 5mg tab] Aspirin [Adult Aspirin Regimen] 81 mg PO DAILY 07/12/20 08/11/20 History Bimatoprost [Lumigan 0.01% Ophth 1 drp OP DAILY 07/12/20 08/11/20 History Soln 2.5mL] Donepezil HCl [Aricept 10mg 5 mg PO BID 07/12/20 08/11/20 History tablet] Levocetirizine Dihydrochloride 5 mg PO DAILY 07/12/20 08/11/20 History Melatonin 5 mg PO HS 07/12/20 08/11/20 History Montelukast Sodium 10 mg PO PM 07/12/20 08/11/20 History Budesonide/Formoterol Fumarate 2 puffs IH HS 07/31/20 08/11/20 History [Symbicort 160-4.5 Mcg Inhaler] Tiotropium Br/Olodaterol HCl 2 puff INHALATION DAILY 07/31/20 08/11/20 History [Stiolto Respimat] diclofenac sodium 75 mg 75 mg PO DAILY tab 08/06/20 08/11/20 History tablet,delayed release pantoprazole 20 mg tablet,delayed 20 mg PO DAILY PRN 08/06/20 08/11/20 History release rosuvastatin 10 mg tablet 10 mg PO Q OTHER DAY tab 08/06/20 08/11/20 History tamsulosin 0.4 mg capsule 0.4 mg PO DAILY cap 08/06/20 08/11/20 History Nitroglycerin 0.4 mg SL NEEDED PRN 08/11/20 08/11/20 History Height: 1.65 m Weight: 81.647 kg Laboratory Results:: Laboratory Results - last 24 hr 08/10/20 21:32: WBC 10.9 H, RBC 4.43 L, Hgb 14.2, Hct 40.3 L, MCV 91.1, MCH 32.1 H, MCHC 35.3, RDW 13.1, Plt Count 256, MPV 8.1, Neut % (Auto) 87.8 H, Lymph % (Auto) 5.7 L, [place] % (Auto) 4.2, Eos % (Auto) 1.9, Baso % (Auto) 0.3, Neut # (Auto) 9.6 H, Lymph # (Auto) 0.6 L, [place] # (Auto) 0.5, Eos # (Auto) 0.2, Baso # (Auto) 0.0, Total Counted 100, Neutrophils % (Manual) 87 H, Band Neutrophils % 5.0, Lymphocytes % (Manual) 6 L, Monocytes % (Manual) 2, Platelet Estimate Normal, RBC Morphology Normal 08/10/20 21:32: D-Dimer 0.48 08/10/20 21:32: Sodium 138, Potassium 3.7, Chloride 103, Carbon Dioxide 26, Anion Gap 12.7, BUN 15, Creatinine 1.10, Estimated Creat Clear 80, Estimated GFR 68, Est GFR ( Amer) 82, Glucose 137 H, Calcium 10.6 H, Troponin I < 0.01 08/10/20 21:32: SARS-CoV-2 IgG Ab (Rapid) Negative, SARS-CoV-2 IgM Ab (Rapid) Negative 08/10/20 21:32: Total Bilirubin 0.6, Direct Bilirubin 0.0, Conjugated Bilirubin 0.0, Indirect Bilirubin 0.6, Unconjugated Bilirubin 0.6, AST 33, ALT 22, Alkaline Phosphatase 66, Total Protein 7.2, Albumin 4.0 08/10/20 21:32: NT-Pro-B Natriuret Pep 274 H 08/10/20 22:26: Specimen Source R/r, O2 % Nrb, ABG pH 7.46 H, ABG pCO2 32.7 L, ABG pO2 81.9, ABG HCO3 22.8, ABG Total CO2 23.8, ABG O2 Saturation 96, ABG Base Excess -1.0, Himanshu Test Y 08/10/20 22:52: Lactate 1.0 08/11/20 00:35: Troponin I 0.01 08/11/20 03:50: Troponin I < 0.01 Medical History: Reports:: Hyperlipidemia, Hypertension, Lung Disease, Myocardial Infarction, Valvular Heart Disease Denies:: Cancer, Diabetes Mellitus Type 1, Diabetes Mellitus Type 2, Internal Pacemaker, MRSA, Seizures Assessment and Plan - Assessment and plan all Dx Assessment and Plan for all problems:: BASED ON PATIENT FACTORS, RECOMMEND VANCOMYCIN 1500 MG IV Q18H. PHARMACY WILL MONITOR DAILY AND ADJUST APPROPRIATE.
--- NOTE | 2020-08-11 08:59 | HMH.HP ---
*Admission Date: 08/11/20 *Chief complaint: SOA *History of present illness: Mr. 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 He had previously been diagnosed with coal miners pneumoconiosis and had been following annually with a veterans adviser in [place] with annual CT scans. He was hospitalized at [facility] a month ago with pneumonia at which time he was also found to have a nearly 3 cm RUL lung mass suspicious for malignancy. He has been following with Dr. Tian and has since had an outpatient PET scan that was reportedly suspicious for malignancy. He was referred to Dr. Menchaca at and had his initial consultation 2 days ago. He has not yet had bronchoscopy. He started feeling more short of breath 3 days ago and yesterday became acutely worse with increased cough and congestion. No fever, chills, chest pain, or hemoptysis. He returned to the emergency room with these symptoms and was noted to be hypoxic on arrival. Laboratory data showed a slightly elevated white count. Repeat chest x-ray was suspicious for bilateral infiltrates and he has subsequently been readmitted for further treatment He is a life long non-smoker. He uses CPAP at night and is on Symbicort at home. He does not use home O2. This morning, he feels better and is less SOA. O2 sats are >90% with 2 liters of nasal O2. [facility] History Medical History: Reports:: Atherosclerotic Heart Disease, Hyperlipidemia, Hypertension, Lung Disease (Black lung), Myocardial Infarction Denies:: Cancer, Diabetes Mellitus Type 1, Diabetes Mellitus Type 2, Internal Pacemaker, MRSA, Seizures *Have you ever received a pneumonia vaccine?: No *Have you received a flu vaccine this season?: Yes Other Medical History: Reports: Arthritis, Glaucoma, Other (Sleep apnea, Overactive bladder, early stage dementia) Laterality Cases: Bilateral: Arthroscopy Knee Other Surgeries: Yes: Cardiac Catheterization, Colonoscopy, Hernia Repair. No: Pacemaker Amputation: No Fractures: No - *Social History Last grade of school completed: High school graduate Smoking Status: Never smoker Alcohol Intake: never Substance Use Type: denies use *Occupational Status:: retired Housing: house Household Members: spouse, family *Travel in the last 8 weeks: None Family Hx:: Other, Coronary Artery Disease, Heart Attack Review of Systems - Constitutional Reports malaise, Denies chills, Denies night sweats, Denies weight loss - Eyes Denies change in vision - ENT Denies abnormal hearing, Denies hoarseness, Denies nasal congestion - *Cardiovascular Reports shortness of breath with activity, Denies chest pain, Denies leg swelling, Denies rapid, pounding, or irregular heartbeat - *Respiratory Reports other (See HPI) - *Gastrointestinal Denies abdominal pain, Denies change in bowel habits, Denies heartburn, Denies difficulty swallowing, Denies bright, red blood in stools - *Genitourinary Denies difficulty urinating, Denies blood in urine - *Musculoskeletal Denies joint swelling, Denies body aches - Integumentary/Breasts Denies unusual bruising - *Neurologic Denies confusion, Denies dizziness, Denies headache(s) Meds Home Medications Medication Instructions Recorded Confirmed Type Aspirin [Adult Aspirin Regimen] 81 mg PO DAILY 07/12/20 08/11/20 History Bimatoprost [Lumigan 0.01% Ophth 1 drp OP DAILY 07/12/20 08/11/20 History Soln 2.5mL] Donepezil HCl [Aricept 10mg 5 mg PO BID 07/12/20 08/11/20 History tablet] Levocetirizine Dihydrochloride 5 mg PO DAILY 07/12/20 08/11/20 History Melatonin 5 mg PO HS 07/12/20 08/11/20 History Montelukast Sodium 10 mg PO PM 07/12/20 08/11/20 History Budesonide/Formoterol Fumarate 2 puffs IH HS 07/31/20 08/11/20 History [Symbicort 160-4.5 Mcg Inhaler] Tiotropium Br/Olodaterol HCl 2 puff INHALATION DAILY 07/31/20 08/11/20 History [Stiolto Respimat] diclofenac sodium 7
--- NOTE | 2020-08-11 09:00 | P.CONPHA_ITS ---
[facility] Pharmacy VTE Monitoring - Patient Demographics Admission date: 08/11/20 Report Date: 08/11/20 Time: 09:00 Allergies/Adverse Reactions: Patient Allergies clavulanic acid [From Augmentin] Allergy (Verified 08/11/20 08:24) Unknown allergy reaction Height: 1.65 m Weight: 81.647 kg Patient Problems: Current Active Problems Black lung disease (Acute) Pneumoconiosis (Acute) Respiratory failure with hypoxia (Acute) HCAP (healthcare-associated pneumonia) (Acute) Lung mass (Acute) - VTE Risk Labs: VTE Related Lab Results Hgb 14.2 g/dL (14.1-18.0) 08/10/20 21:32 Hct 40.3 % (42.0-52.0) L 08/10/20 21:32 Plt Count 256 K/mm3 (142-424) 08/10/20 21:32 BUN 15 mg/dl (9-20) 08/10/20 21:32 Creatinine 1.10 mg/dl (0.66-1.25) 08/10/20 21:32 Estimated Creat Clear 80 mL/min (50-200) 08/10/20 21:32 Was VTE Risk Assessment Performed: Yes VTE Score: 8 VTE Risk Level: Moderate Risk - Prophylaxis VTE Prophylaxis Ordered?: Yes Types of VTE Prophylaxis: TEDS Knee High Location of Applied Device: Bilateral Lower Extremeties
--- NOTE | 2020-08-11 09:07 | HMH.PHAINT ---
HOME MEDICATIONS RECONCILED FROM RECENT DISCHARGE LIST.
--- NOTE | 2020-08-11 12:49 | PC.NURSE ---
PT O2 SATURATION 99% ON 3LNC, TITRATED O2 TO 2LNCS AT THIS TIME, WILL CONTINUE TO MONITOR
--- NOTE | 2020-08-11 13:11 | PC.NURSE ---
PT CURRENTLY ON 1LNC, DENIES SOA, O2 SAT 95%
--- NOTE | 2020-08-11 16:36 | PC.NURSE ---
PT AO*4, BATH AND LINEN CHANGE TODAY, CURRENTLY 95% ON 2LNC, PT O2 SUPPORT TITRATED DOWN WHILE MAINTAINING SATS OF >92%AMBULATES TO BATHROOM UNDER OWN POWER, HAS BEEN UP TO CHAIR FOR MOST OF SHIFT, HOME MEDS AND CPAP HAVE BEEN BROUGHT FROM HOME, VERIFIED IN PHARM, PT DENIES SOA, NO N/V/D NOTED, ABD SOFT AND NON-TENDER,
[2020-08-12] VITALS (14 sets, daily range): BP systolic 107–135; BP diastolic 47–65; PULSE 56–76; RESP 18–20; TEMP 36.4–36.7; O2SAT 86–99; BMI 29.9
--- NOTE | 2020-08-12 02:02 | PC.NURSE ---
Pt is alert and oriented x4. No acute changes noted from previous shift. Pt stated to this RN his cough has been persistent this evening. Requested cough medicine so he could attempt to sleep with use of CPAP. Spoke with MD about request, Tussigon ordered and administered per MAR. Pt tolerated well with no further complaints. Upon reassessment pt noted resting with eyes closed. Since received first dose of Tussigon pt has rested well with his eyes closed. Tolerates 2 lnc well with no SOA, use of CPAP this evening while resting in bed. Bilateral lungs noted clear t/o upon auscultation. Cough noted non-productive and dry. Unable to produce sputum thus far. Will attempt to induce sputum per DEC upon awakening this am. Adequate urine output noted this shift per urinal. Urine noted clear and bright yellow in color. No edema noted. Refused TEDS. VSS. Remains safe. Pt tolerates independent amb in room well. Call light within reach. Will continue to monitor.
--- NOTE | 2020-08-12 08:09 | XR_ITS ---
PROCEDURE: XR CHEST 2V CLINICAL HISTORY: f/u pneumonia Follow-up pneumonia COMPARISON: CR XR CHEST 2V from 07/12/[address] ANGIO CHEST from 07/12/2020 CR XR CHEST PORTABLE from 08/10/2020 FINDINGS: The cardiomediastinal silhouette and pulmonary vascularity are within normal limits. Diffuse bilateral increased density once again noted involving the mid lower lung zones bilaterally consistent with pneumonia superimposed upon chronic lung disease. Right upper lobe nodule is once again noted at 2 cm not significantly changed. No effusions. No acute bony findings. IMPRESSION: Overall no change diffuse bilateral pneumonia with superimposed chronic lung disease and right upper lobe nodule suspicious for neoplasm Dictated by: Himanshu Schneider MD 08/12/2020 08:54 Himanshu Schneider MD in [place] 08/12/2020 08:54
--- NOTE | 2020-08-12 08:12 | HMH.ACPN2 ---
<Tri rDaper - Last Filed: 08/12/20 08:12> Internal Medicine - PN: Subj *Date: 08/12/20 *Time: 08:12 Interval history: Patient complaining of heartburn and reflux this a.m. states he usually takes Tums in the morning before he eats and then takes Protonix. He did receive a dose of Protonix last night. States he slept little bit but continues with a frequent dry cough. His breathing is okay with the CPAP with oxygen. Exam Vital signs and Labs for Last 24 Hours: Temp Pulse Resp BP Pulse Ox 97.7 F 60 20 129/60 97 08/12/20 07:23 08/12/20 07:23 08/12/20 07:23 08/12/20 07:23 08/12/20 07:23 I & O for Last 24 hours: Intake & Output 08/09/20 08/10/20 08/11/20 08/12/20 11:59 11:59 11:59 11:59 Intake Total 726 / 726 2177 / 2177 Output Total 500 / 500 1550 / 1550 Balance 226 / 226 627 / 627 Weight 180 lb 180 lb - Constitutional no acute distress Comments: Sitting up in the bed after eating breakfast - *Routine Respiratory Exam Present: crackles (Throughout) - *Routine Cardiovascular Exam Present: RRR - *Routine Abdominal Exam Present: soft, normoactive bowel sounds. Absent: tenderness, distended - *Routine Extremities Exam Absent: edema, calf tenderness - *Routine Neurological Exam Present: alert, oriented X3 Assessment and Plan (1) Pneumonia Status: Acute Qualifiers: Pneumonia type: due to unspecified organism Laterality: right Lung location: upper lobe of lung Qualified Code(s): J18.9 - Pneumonia, unspecified organism Category: Medical Code(s): J18.9 - Pneumonia, unspecified organism (2) Respiratory failure with hypoxia Status: Acute Qualifiers: Chronicity: acute Qualified Code(s): J96.01 - Acute respiratory failure with hypoxia Category: Medical Code(s): J96.91 - Respiratory failure, unspecified with hypoxia (3) Lung mass Status: Acute Category: Medical Code(s): R91.8 - Other nonspecific abnormal finding of lung field (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 (5) Hx of arteriosclerotic cardiovascular disease Status: Acute Category: Medical Code(s): Z86.79 - Personal history of other diseases of the circulatory system (6) Minimal cognitive impairment Status: Acute Category: Medical Code(s): G31.84 - Mild cognitive impairment, so stated (7) ZOFIA (obstructive sleep apnea) Status: Acute Category: Medical Code(s): G47.33 - Obstructive sleep apnea (adult) (pediatric) (8) OAB (overactive bladder) Status: Acute Category: Medical Code(s): N32.81 - Overactive bladder (9) Glaucoma Status: Acute Category: Medical Code(s): H40.9 - Unspecified glaucoma (10) Hx of myocardial infarction Status: Chronic Category: Medical Code(s): I25.2 - Old myocardial infarction (11) GERD (gastroesophageal reflux disease) Status: Acute Category: Medical Code(s): K21.9 - Gastro-esophageal reflux disease without esophagitis - Assessment and plan all Dx Assessment and Plan for all problems:: Continue with Levaquin, cefepime, and vancomycin. Also will continue with duo nebs. Will increase Protonix to twice daily. <Silvio Weber - Last Filed: 08/12/20 10:11> Internal Medicine - PN: Subj *Date: 08/12/20 *Time: 10:08 Exam Vital signs and Labs for Last 24 Hours: Temp Pulse Resp BP Pulse Ox 97.7 F 60 20 129/60 91 L 08/12/20 07:23 08/12/20 10:06 08/12/20 07:23 08/12/20 07:23 08/12/20 10:06 I & O for Last 24 hours: Intake & Output 08/09/20 08/10/20 08/11/20 08/12/20 11:59 11:59 11:59 11:59 Intake Total 726 / 726 2177 / 2177 Output Total 500 / 500 1550 / 1550 Balance 226 / 226 627 / 627 Weight 180 lb 180 lb Assessment and Plan (1) Pneumonia Status: Acute Qualifiers: Pneumonia type: due to unspecified organism Laterality: right Lung location: upper lobe of lung Qu
--- NOTE | 2020-08-12 19:12 | PC.NURSE ---
patient has done well this shift. has had no complaints this shift. rings out as needed. took a shower. takes o2 off and on. majority of time o2 sats have been food. has cpap for sleep. up to chair most of day ambulating independently in room. lung sounds are clear. vitals stable will continue to monitoir.
--- NOTE | 2020-08-12 19:12 | PC.NURSE ---
report given to nettie
[2020-08-13] VITALS (10 sets, daily range): BP systolic 108–133; BP diastolic 48–58; PULSE 60–80; RESP 16–22; TEMP 36.4–36.7; O2SAT 93–99; BMI 30.1
--- NOTE | 2020-08-13 05:28 | PC.NURSE ---
Pt is A&Ox4 and has ambulated in room several times this shift and tolerated well. Pt has denied any pain, nausea, or SOB this shift. Pt does continue to have a dry cough, pt aware of need for sputum sample. Pt continued on room air until he changed over to CPAP device ~12am. ABD is soft, non-tender, with active BS, and last BM was 08/12. Lungs CTA although diminished. Room air sat 97%. VSS, call light within reach, will continue to monitor.
--- NOTE | 2020-08-13 06:59 | PC.NURSE ---
CALLED LAB TO CHECK ON TIMED VANC TROUGH FOR 529 THAT HAS NOT RESULTED YET. PER ORLIN IN LAB, THEY ARE RUNNING CONTROLS AND HAVE SAMPLE WAITING TO BE RAN SOON IT IS COMPLETED. HOLDING VANCO AT THIS TIME AWAITING RESULTS.
[2020-08-13 08:00] LABS: Vancomycin,Trough 7.7 ug/mL (5.0-10.0)
--- NOTE | 2020-08-13 08:20 | HMH.ACPN2 ---
Internal Medicine - PN: Subj *Date: 08/13/20 *Time: 08:20 Interval history: Subjectively feeling better. He rested well last night using his CPAP machine from home. He was on room air most of the afternoon yesterday sats greater than 90%. His cough is improved some and is still mostly nonproductive. Denies chest pain. He has been able to tolerate light activity in the room. Exam Vital signs and Labs for Last 24 Hours: Temp Pulse Resp BP Pulse Ox 98.0 F 69 18 117/48 L 99 08/13/20 12:00 08/13/20 12:00 08/13/20 12:00 08/13/20 12:00 08/13/20 12:00 Laboratory Results - last 24 hr 08/13/20 05:39: Vancomycin Trough 7.7 I & O for Last 24 hours: Intake & Output 08/11/20 08/12/20 08/13/20 08/14/20 11:59 11:59 11:59 11:59 Intake Total 726 / 726 2177 / 2177 3382 / 3382 Output Total 500 / 500 1550 / 1550 4025 / 4025 Balance 226 / 226 627 / 627 -643 / -643 Weight 180 lb 180 lb 181 lb Microbiology Reports for the Last 24 Hours: Microbiology 08/10/20 22:51 Blood Blood Culture - Preliminary NO GROWTH AFTER 48 HOURS 08/10/20 22:51 Blood Blood Culture - Preliminary NO GROWTH AFTER 48 HOURS Narrative: He is sitting up in the chair breathing room air appears in no distress. Color is normal. Noted with cough. Breath sounds have improved. No rales or wheezes. Heart is regular. Extremities no edema. Assessment and Plan (1) Pneumonia Status: Acute Qualifiers: Pneumonia type: due to unspecified organism Laterality: right Lung location: upper lobe of lung Qualified Code(s): J18.9 - Pneumonia, unspecified organism Category: Medical Code(s): J18.9 - Pneumonia, unspecified organism (2) Respiratory failure with hypoxia Status: Acute Qualifiers: Chronicity: acute Qualified Code(s): J96.01 - Acute respiratory failure with hypoxia Category: Medical Code(s): J96.91 - Respiratory failure, unspecified with hypoxia (3) Lung mass Status: Acute Category: Medical Code(s): R91.8 - Other nonspecific abnormal finding of lung field (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 (5) Hx of arteriosclerotic cardiovascular disease Status: Acute Category: Medical Code(s): Z86.79 - Personal history of other diseases of the circulatory system (6) Minimal cognitive impairment Status: Acute Category: Medical Code(s): G31.84 - Mild cognitive impairment, so stated (7) ZOFIA (obstructive sleep apnea) Status: Acute Category: Medical Code(s): G47.33 - Obstructive sleep apnea (adult) (pediatric) (8) OAB (overactive bladder) Status: Acute Category: Medical Code(s): N32.81 - Overactive bladder (9) Glaucoma Status: Acute Category: Medical Code(s): H40.9 - Unspecified glaucoma (10) Hx of myocardial infarction Status: Chronic Category: Medical Code(s): I25.2 - Old myocardial infarction (11) GERD (gastroesophageal reflux disease) Status: Acute Category: Medical Code(s): K21.9 - Gastro-esophageal reflux disease without esophagitis - Assessment and plan all Dx Assessment and Plan for all problems:: Chest x-ray from yesterday showed no improvement clinically he is better. Continue current antibiotics pending final cultures. Possible discharge home tomorrow.
--- NOTE | 2020-08-13 10:49 | HMH.PHACONS ---
- Pharmacy Consult Date: 08/13/20 Time: 10:50 Referring provider: DR. ZAMORA Reason for Consult:: VANCOMYCIN TROUGH LEVEL Allergies and ADEs:: Allergies Allergy/AdvReac Type Severity Reaction Status Date / Time clavulanic acid Allergy Unknown Verified 08/11/20 08:24 [From Augmentin] allergy reaction Home Medications:: Home Medications Medication Instructions Recorded Confirmed Type Aspirin [Adult Aspirin Regimen] 81 mg PO DAILY 07/12/20 08/11/20 History Bimatoprost [Lumigan 0.01% Ophth 1 drp OP DAILY 07/12/20 08/11/20 History Soln 2.5mL] Donepezil HCl [Aricept 10mg 20 mg PO HS 07/12/20 08/11/20 History tablet] Levocetirizine Dihydrochloride 5 mg PO DAILY 07/12/20 08/11/20 History Melatonin 5 mg PO HS 07/12/20 08/11/20 History Montelukast Sodium 10 mg PO PM 07/12/20 08/11/20 History Budesonide/Formoterol Fumarate 2 puffs IH HS 07/31/20 08/11/20 History [Symbicort 160-4.5 Mcg Inhaler] Tiotropium Br/Olodaterol HCl 2 puff INHALATION DAILY 07/31/20 08/11/20 History [Stiolto Respimat] diclofenac sodium 75 mg 75 mg PO DAILY tab 08/06/20 08/11/20 History tablet,delayed release pantoprazole 20 mg tablet,delayed 40 mg PO HS 08/06/20 08/11/20 History release rosuvastatin 10 mg tablet 10 mg PO QODHS tab 08/06/20 08/11/20 History tamsulosin 0.4 mg capsule 0.4 mg PO HS cap 08/06/20 08/11/20 History Amlodipine Besylate 5 mg PO DAILY 08/11/20 08/11/20 History Nitroglycerin 0.4 mg SL NEEDED PRN 08/11/20 08/11/20 History Height: 1.65 m Weight: 82.1 kg Laboratory Results:: Laboratory Results - last 24 hr 08/13/20 05:39: Vancomycin Trough 7.7 Medical History: Reports:: Atherosclerotic Heart Disease, Hyperlipidemia, Hypertension, Lung Disease (Black lung), Myocardial Infarction, Valvular Heart Disease Denies:: Cancer, Diabetes Mellitus Type 1, Diabetes Mellitus Type 2, Internal Pacemaker, MRSA, Seizures Assessment and Plan (1) Pneumonia Status: Acute Qualifiers: Pneumonia type: due to unspecified organism Laterality: right Lung location: upper lobe of lung Qualified Code(s): J18.9 - Pneumonia, unspecified organism Category: Medical Code(s): J18.9 - Pneumonia, unspecified organism (2) Respiratory failure with hypoxia Status: Acute Qualifiers: Chronicity: acute Qualified Code(s): J96.01 - Acute respiratory failure with hypoxia Category: Medical Code(s): J96.91 - Respiratory failure, unspecified with hypoxia (3) Lung mass Status: Acute Category: Medical Code(s): R91.8 - Other nonspecific abnormal finding of lung field (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 (5) Hx of arteriosclerotic cardiovascular disease Status: Acute Category: Medical Code(s): Z86.79 - Personal history of other diseases of the circulatory system (6) Minimal cognitive impairment Status: Acute Category: Medical Code(s): G31.84 - Mild cognitive impairment, so stated (7) ZOFIA (obstructive sleep apnea) Status: Acute Category: Medical Code(s): G47.33 - Obstructive sleep apnea (adult) (pediatric) (8) OAB (overactive bladder) Status: Acute Category: Medical Code(s): N32.81 - Overactive bladder (9) Glaucoma Status: Acute Category: Medical Code(s): H40.9 - Unspecified glaucoma (10) Hx of myocardial infarction Status: Chronic Category: Medical Code(s): I25.2 - Old myocardial infarction (11) GERD (gastroesophageal reflux disease) Status: Acute Category: Medical Code(s): K21.9 - Gastro-esophageal reflux disease without esophagitis - Assessment and plan all Dx Assessment and Plan for all problems:: BASED ON VANCOMYCIN TROUGH LEVEL AND PATIENT FACTORS, RECOMMEND CHANGING INTERVAL FROM Q18H TO VANCOMYCIN 1500 MG IV Q12H. PHARMACY WILL CONTINUE TO MONITOR DAILY AND ADJUST APPROPRIATE.
--- NOTE | 2020-08-13 20:00 | PC.NURSE ---
pt done well today. dry cough noted. no complaints of soa. ambulates independently in room. vss. will cont. to monitor.
[2020-08-14] VITALS: BP 126/69; PULSE 69; RESP 20; TEMP 36.3; O2SAT 96
--- NOTE | 2020-08-14 03:57 | PC.NURSE ---
Pt is A&Ox4 and has ambulated in room well t/o shift. Pt denies any pain, nausea, SOB, or dyspnea. Pt has maintained on room air while awake with SaO2 96-99%. Lungs CTA, although diminished bases. ABD is soft, non-tender, with active BS noted and last BM was on prev shift. TEDS refused. Pt continues to have a dry, persistent cough and was medicated 2x with Hycodan with fair effectiveness noted. Skin C/D/I, no edema noted. VSS, call light within reach and will continue to monitor.
[2020-08-14 04:00] VITALS: BP 140/72; PULSE 76; RESP 21; TEMP 36.4; O2SAT 95
[2020-08-14 05:00] VITALS: BMI 29.1
[2020-08-14 06:17] VITALS: PULSE 59; PULSE 60
[2020-08-14 06:26] LABS: Basophils % 0.3 % (0.1-2.0); Eosinophils % 0.1 % (0.1-12.0); Hematocrit 35.5 % (42.0-52.0); Hemoglobin 11.9 g/dL (14.1-18.0); Lymphocytes # 0.6 K/mm3 (0.7-4.5); Mean Corpuscular HGB Conc 33.4 g/dL (31.8-35.4); Mean Corpuscular Hemoglobin 30.9 pg (27.0-31.2); Mean Corpuscular Volume 92.5 fl (80-94); Mean Platelet Volume 8.9 fl (7.4-10.4); Monocytes # 0.6 K/mm3 (0.1-1.0); Monocytes % 4.2 % (1.7-9.3); Neutrophils # 13.5 K/mm3 (1.8-7.8); Neutrophils % 91.4 % (37.0-80.0); Platelet Count 264 K/mm3 (142-424); Red Blood Count 3.84 M/mm3 (4.60-6.20); Red Cell Distribution Width 13.2 % (11.5-17.5); White Blood Count 14.8 K/mm3 (4.8-10.8)
[2020-08-14 06:32] LABS: Chloride 104 mmol/L (98-107)
[2020-08-14 06:33] LABS: Potassium 4.4 mmoL/L (3.5-5.1); Sodium 135 mmol/L (136-145)
[2020-08-14 06:36] LABS: Anion Gap 11.4 mEq/L (5-15); Blood Urea Nitrogen 21 mg/dl (9-20); Calcium 9.5 mg/dl (8.4-10.2); Carbon Dioxide 24 mmol/L (22.0-30.0); Creatinine Clearance Estimated 85 mL/min (50-200); Estimated Glomerular Filt Rate 85 ml/min (>60); GFR (African American) 103 ML/MIN (>60); Glucose 129 mg/dl (74-100)
[2020-08-14 06:47] LABS: MANUAL DIFFERENTIAL MANUAL DIFFERENTIAL (MANUAL DIFF)
[2020-08-14 07:38] LABS: Lymphocytes % 6 % (10-50); Monocytes % 4 % (2-9); Neutrophils % 90 % (42-76); Platelet Estimate Normal; Total Cells Counted 100
[2020-08-14 07:39] LABS: RBC Morphology Normal
[2020-08-14 08:00] VITALS: BP 127/57; PULSE 59; RESP 18; TEMP 36.6; O2SAT 99
--- NOTE | 2020-08-14 09:41 | HMH.ACPN2 ---
Internal Medicine - PN: Subj *Date: 08/14/20 *Time: 09:41 Interval history: States he did not sleep as well last night for no particular reason. He denies respiratory distress. No chest pain. Still has some dry cough but is better. He has been tolerating activity in the room. Exam Vital signs and Labs for Last 24 Hours: Temp Pulse Resp BP Pulse Ox 97.8 F 59 L 18 127/57 L 99 08/14/20 08:00 08/14/20 08:00 08/14/20 08:00 08/14/20 08:00 08/14/20 08:00 Laboratory Results - last 24 hr 08/14/20 05:57: Sodium 135 L, Potassium 4.4, Chloride 104, Carbon Dioxide 24, Anion Gap 11.4, BUN 21 H, Creatinine 0.90, Estimated Creat Clear 85, Estimated GFR 85, Est GFR ( Amer) 103, Glucose 129 H, Calcium 9.5 08/14/20 05:57: WBC 14.8 H, RBC 3.84 L, Hgb 11.9 L, Hct 35.5 L, MCV 92.5, MCH 30.9, MCHC 33.4, RDW 13.2, Plt Count 264, MPV 8.9, Neut % (Auto) 91.4 H, Lymph % (Auto) 4.0 L, [place] % (Auto) 4.2, Eos % (Auto) 0.1, Baso % (Auto) 0.3, Neut # (Auto) 13.5 H, Lymph # (Auto) 0.6 L, [place] # (Auto) 0.6, Eos # (Auto) 0.0, Baso # (Auto) 0.0, Total Counted 100, Neutrophils % (Manual) 90 H, Lymphocytes % (Manual) 6 L, Monocytes % (Manual) 4, Platelet Estimate Normal, RBC Morphology Normal I & O for Last 24 hours: Intake & Output 08/11/20 08/12/20 08/13/20 08/14/20 11:59 11:59 11:59 11:59 Intake Total 726 / 726 2177 / 2177 3382 / 3382 950 / 950 Output Total 500 / 500 1550 / 1550 4025 / 4025 2400 / 2400 Balance 226 / 226 627 / 627 -643 / -643 -1450 / -1450 Weight 180 lb 180 lb 181 lb 175 lb 0.01 oz Narrative: He is sitting up in the chair and appears in no distress. Color is good. Lungs reveal a few fibrotic sounds in the bases. No wheezes. Heart is regular. Extremities no edema. Assessment and Plan (1) Pneumonia Status: Acute Qualifiers: Pneumonia type: due to unspecified organism Laterality: right Lung location: upper lobe of lung Qualified Code(s): J18.9 - Pneumonia, unspecified organism Category: Medical Code(s): J18.9 - Pneumonia, unspecified organism (2) Respiratory failure with hypoxia Status: Acute Qualifiers: Chronicity: acute Qualified Code(s): J96.01 - Acute respiratory failure with hypoxia Category: Medical Code(s): J96.91 - Respiratory failure, unspecified with hypoxia (3) Lung mass Status: Acute Category: Medical Code(s): R91.8 - Other nonspecific abnormal finding of lung field (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 (5) Hx of arteriosclerotic cardiovascular disease Status: Acute Category: Medical Code(s): Z86.79 - Personal history of other diseases of the circulatory system (6) Minimal cognitive impairment Status: Acute Category: Medical Code(s): G31.84 - Mild cognitive impairment, so stated (7) ZOFIA (obstructive sleep apnea) Status: Acute Category: Medical Code(s): G47.33 - Obstructive sleep apnea (adult) (pediatric) (8) OAB (overactive bladder) Status: Acute Category: Medical Code(s): N32.81 - Overactive bladder (9) Glaucoma Status: Acute Category: Medical Code(s): H40.9 - Unspecified glaucoma (10) Hx of myocardial infarction Status: Chronic Category: Medical Code(s): I25.2 - Old myocardial infarction (11) GERD (gastroesophageal reflux disease) Status: Acute Category: Medical Code(s): K21.9 - Gastro-esophageal reflux disease without esophagitis - Assessment and plan all Dx Assessment and Plan for all problems:: He is stable for discharge. He has been unable to produce a sputum during the admission so no cultures are available. He will finish her course of Levaquin for an additional 5 days. Follow-up in the office next week.
[2020-08-14 10:45] VITALS: PULSE 60; PULSE 61
--- NOTE | 2020-08-15 05:41 | HMH.DCSUM ---
General - General Admission date:: 08/11/20 <Silvio Weber - 08/28/20 11:01> 08/11/20 <Draper,Tri - 08/15/20 06:02> Discharge date: 08/14/20 <Tri Draper - 08/15/20 06:02> HPI HPI: Mr. 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 He was hospitalized at [facility] a month ago with pneumonia at which time he was also found to have a nearly 3 cm RUL lung mass suspicious for malignancy. He was followed by Dr. Tian and recently had an outpatient PET scan that was reportedly suspicious for malignancy. He was referred to Dr. Menchaca at and had his initial consultation 2 days ago. He had not yet had a bronchoscopy. He started feeling more short of breath 3 days ago and yesterday became acutely worse with increased cough and congestion. No fever, chills, chest pain, or hemoptysis. He returned to the emergency room with these symptoms and was noted to be hypoxic on arrival. Laboratory data showed a slightly elevated white count. Repeat chest x-ray was suspicious for bilateral infiltrates and he was subsequently readmitted for further treatment He was noted to be a life long non-smoker. He used CPAP at night and was on Symbicort at home. He did not use home O2. The following morning, he felt better and was less SOA. O2 sats were >90% with 2 liters of nasal O2. <Tri Draper - 08/15/20 06:02> Hospital Course Hospital Course: On admission patient was started on duo nebs, and IV antibiotics of cefepime, vancomycin and Levaquin as well as Solu-Medrol every 8 hours. His breathing was much improved the following day after admission. He did complain of heartburn and was restarted back on his PPI. He had a dry cough. Use his CPAP machine from home at night. O2 sats did improve on room air and improved to greater than 90%. He began to tolerate light activity in the room. On 08/14/2020 he denied any respiratory distress and had no chest pain. He continued with some dry cough but this was better. He was tolerating activity in the room and remained on room air with satisfactory O2 sats. He was unable to produce sputum during this admission so no cultures were obtained. On this date he was discharged home. Disposition: discharged home in stable and satisfactory condition. He was to remain on his Levaquin for an additional 5 days of treatment. He was to follow-up with Dr. Weber in the office on 08/19/2020. See data for x-ray results and additional lab values. <Tri Draper - 08/15/20 06:02> Objective Vital signs: Temp Pulse Resp BP Pulse Ox 97.8 F 61 18 127/57 L 99 08/14/20 08:00 08/14/20 10:45 08/14/20 08:00 08/14/20 08:00 08/14/20 08:00 <Silvio Weber - 08/28/20 11:01> Temp Pulse Resp BP Pulse Ox 97.8 F 61 18 127/57 L 99 08/14/20 08:00 08/14/20 10:45 08/14/20 08:00 08/14/20 08:00 08/14/20 08:00 <Tri Draper - 08/15/20 06:02> Narrative: Exam Vital signs and Labs for Last 24 Hours: Temp Pulse Resp BP Pulse Ox 97.8 F 59 L 18 127/57 L 99 08/14/20 08:00 08/14/20 08:00 08/14/20 08:00 08/14/20 08:00 08/14/20 08:00 Laboratory Results - last 24 hr 08/14/20 05:57: Sodium 135 L, Potassium 4.4, Chloride 104, Carbon Dioxide 24, Anion Gap 11.4, BUN 21 H, Creatinine 0.90, Estimated Creat Clear 85, Estimated GFR 85, Est GFR ( Amer) 103, Glucose 129 H, Calcium 9.5 08/14/20 05:57: WBC 14.8 H, RBC 3.84 L, Hgb 11.9 L, Hct 35.5 L, MCV 92.5, MCH 30.9, MCHC 33.4, RDW 13.2, Plt Count 264, MPV 8.9, Neut % (Auto) 91.4 H, Lymph % (Auto) 4.0 L, [place] % (Auto) 4.2, Eos % (Auto) 0.1, Baso % (Auto) 0.3, Neut # (Auto) 13.5 H, Lymph # (Auto) 0.6 L, [place] # (Auto) 0.6, Eos # (Auto) 0.0, Baso # (Auto) 0.0, Total Counted
== END 2020-08-14 12:23 | disposition home or self-care (01) ==
LOC: UTC 20:35 → ER 21:25 → 2ND 08-11 00:19
PROVIDERS: Admitting Provider Family Medicine; Emergency Provider Emergency Medicine; PCP Family Medicine; Visit Provider Family Medicine
DX: J18.9 Pneumonia, unspecified organism (principal); J96.01 Acute respiratory failure with hypoxia; J60 Coalworker's pneumoconiosis; I10 Essential (primary) hypertension; I25.2 Old myocardial infarction; I25.10 Atherosclerotic heart disease of native coronary artery without angina pectoris; G31.84 Mild cognitive impairment of uncertain or unknown etiology; G47.33 Obstructive sleep apnea (adult) (pediatric); N32.81 Overactive bladder; Z79.82 Long term (current) use of aspirin; Z79.899 Other long term (current) drug therapy; R06.9 Unspecified abnormalities of breathing
CPT/HCPCS: 36415; 71045; 71046; 80048; 80076; 80202; 82803; 83605; 83880; 84484; 85007; 85025; 85378; 86328; 87040; 93005; 94640; 94760; 96365; 96367; 96375; 99282; G0378; J1956; J3370; U0003

== ENCOUNTER → 2020-08-20 10:27 | Outpatient (CLI) | payer MEDICARE, SELFPAY ==
[2020-08-20 12:42] LABS: Thyroid Stimulating Hormone 1.46 uIU/mL (0.465-4.68)
[2020-08-20 13:17] LABS: Vitamin B12 968 pg/mL (239-931)
== END ==
PROVIDERS: Visit Provider Specialist
DX: R41.3 Other amnesia (principal); G47.30 Sleep apnea, unspecified; Z79.899 Other long term (current) drug therapy
CPT/HCPCS: 36415; 82607; 82746; 84443

== ENCOUNTER → 2020-08-22 08:01 | Outpatient (CLI) | payer MEDICARE, OTHER, SELFPAY ==
--- NOTE | 2020-08-22 | CA_ITS ---
APPROVED REPORT Exam: Pharmacologic Technologist: Tess Kasper, Ht: 5 ft 9 in Wt: 181 lbs BSA: 1.98 m2 HR: 75 bpm BP: 107/54 mmHg Rhythm: NSR,NORMAL Medical History Medical History: HTN Medications: Amlodipine,,,,, Asa,,,,, Pantoprazole,,,,, Diclofenac,,,,, DONEPEZIL,,,,, MeLATONIN,,,,, Nitro,,,,, ANoro,,,,, BenzOlnatate,,,,, ToVIAZ,,,,, Allergies: AUGMENTIN Cardiac Risk Factors: FHX of CAD, HTN Stress Test Details Test: LEXISCAN HR Resting HR: 73 bpm Max Heart Rate (APMHR): 157 bpm Max HR Achieved: 86 bpm Target HR (85% APMHR): 133 bpm % of APMHR: 54 Recovery HR: 84 bpm BP Resting BP: 107.0/54.0 mmHg Max BP: 107.0/54.0 mmHg Recovery BP: 105.0/50.0 mmHg ECG Resting ECG: NSR,NORMAL Clinical Exercise duration: 04:16 min Highest Stage Achieved: Exercise capacity: 1.0 METs Stress ECG Conclusion PLACED ON O2 AT 3LPM NASAL CANNULA FOR SAT OF 92%. DURING INFUSION OF LEXISCAN PATIENT HAD SOA,MILD MALAISE BUT NO CP. NO ARRHYTHMIAS/ECTOPY. NO SIGNIFICANT ST-T CHANGES. UNREMARKABLE LEXISCAN STRESS. MYOVIEW IMAGES REPORTED SEPARATELY. Electronically signed by : Tavo Nunes, 08/22/2020 13:06:16
--- NOTE | 2020-08-22 08:02 | NM_ITS ---
APPROVED REPORT Exam: Nuclear Stress Test Indication: cad, hx mi, fm hx, sob, palpitations Patient Location: Outpatient Stress Tech: Laurie Bermeo [place] Tech:eMlanie Tubbs MELISSA[place] RT(R)(N) Ht: 5 ft 5 in Wt: 180 lbs HR: 75 bpm BP: 107/54 mmHg BSA: 1.89 m2 BMI: 29.9 History: cad, hx mi, fm hx, sob, palpitations Procedure: Patient received a 0.4 mg of intravenous Lexiscan, resting heart rate 75 bpm, resting blood pressure 107/54 mmHg, with Lexiscan maximum heart rate achived was 83 bpm which is Less than 85 % of the maximum predicted heart rate and blood pressure was 93/36 mmHg. With Lexiscan, patient denied any complaint of chest pain. Electrocardiogram Resting electrocardiogram showed sinus rhythm, with Lexiscan there is less than 1.[address] segment depression noted from the baseline EKG. The EKG portion of the Lexiscan Myoview is nondiagnostic. Cardiac Stress and Resting SPECT Images: Cardiac Stress and Resting SPECT images were obtained using technetium 99m Myoview 32.1 mCi stress and 10.17 mCi at rest. Gated SPECT for the analysis of segmental wall motion and calculation of the ejection fraction also done. Prone images were also obtained. Cardiac stress and resting SPECT images show uniform myocardial activity without segmental perfusion abnormality, computer derived ejection fraction is 58% with no regional wall motion abnormality, right ventricle is normal size and contractility. Conclusion: 1. The EKG portion of the Lexiscan Myoview is nondiagnostic. 2. No scintigraphic evidence of reversible ischemia seen, computer derived ejection fraction is 58% with no regional wall motion abnormality, right ventricle is normal size and contractility. 3. Normal Lexiscan Myoview study. Electronically signed by : Tavo Nunes, 08/22/2020 13:09:44
--- NOTE | 2020-08-22 09:49 | PC.NURSE ---
Addendum entered by Lyric Kasper, RT 08/22/20 13:59: PATIENT WAS ON ROOM AIR AND AT REST Original Note: PATIENTS OXYGEN LEVEL WAS 85% ON ROOM AIR. PLACED ON NASAL CANNULA AT 4 LPM TO KEEP SATS AT 92% CONTACTED FOR FURTHER INSTRUCTIONS.
[2020-08-22 09:53] VITALS: O2SAT 85
--- NOTE | 2020-08-22 10:53 | HMH.ITSHM ---
Current Home Medications as stated by this patient Prashanth Kern or media sales representative. [] asa amolodipine donepezil montelukast
--- NOTE | 2020-08-22 14:03 | PC.NURSE ---
0949 PATIENT WAS 85% ON ROOM AIR AT REST. PLACED ON 4LPM TO MAINTAIN SAT OF 92%
== END ==
PROVIDERS: PCP Family Medicine; Visit Provider Urology
DX: E78.5 Hyperlipidemia, unspecified (principal); I10 Essential (primary) hypertension; I25.10 Atherosclerotic heart disease of native coronary artery without angina pectoris; I25.2 Old myocardial infarction; R06.00 Dyspnea, unspecified; R07.89 Other chest pain; R91.8 Other nonspecific abnormal finding of lung field; R94.31 Abnormal electrocardiogram [ECG] [EKG]
CPT/HCPCS: 78452; 93017; 94760; A9502; J2785

== ENCOUNTER → 2020-08-29 10:41 | Outpatient (CLI) | payer MEDICARE, SELFPAY ==
--- NOTE | 2020-08-29 10:44 | MR_ITS ---
PROCEDURE: MR HEAD/BRAIN WO/W CON CLINICAL INDICATION: memory loss, lung mass SHORT TERM MEMORY LOSS. LUNG MASS. COMPARISON: No exams were available for comparison TECHNIQUE: Routine multiplanar multi echo sequences are performed without gadolinium enhancement. FINDINGS: No midline shift, mass effect, intracranial hemorrhage, or hydrocephalus is evident. The cerebellopontine angle, cerebellum, and brainstem are unremarkable. No evidence of acute infarction. No enhancing lesions are evident. No evidence of metastatic disease. There is a nonspecific small T2 white matter hyperintensity in the left centrum semiovale anteriorly and right salguero radiata posteriorly and may be due to small ischemic gliotic foci. No enhancing lesions are evident. No mastoid effusion or sinus air-fluid level. The there is mild mucosal thickening of the ethmoid sinuses. IMPRESSION: Essentially negative MRI of the brain without and with contrast. No evidence of metastatic disease. Dictated by: Himanshu Schneider MD 08/30/2020 09:26 Himanshu Schneider MD in [place] 08/30/2020 09:26
== END ==
PROVIDERS: PCP Family Medicine; Visit Provider Specialist
DX: R41.3 Other amnesia (principal)
CPT/HCPCS: 70553; A9576

== ENCOUNTER → 2020-08-30 09:47 | Outpatient (CLI) | payer MEDICARE, SELFPAY ==
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
== END ==
PROVIDERS: PCP Family Medicine; Visit Provider Internal Medicine Pulmonary Disease
DX: J44.9 Chronic obstructive pulmonary disease, unspecified (principal)
CPT/HCPCS: 71046

== ENCOUNTER → 2020-09-10 10:44 | Outpatient (CLI) | payer MEDICARE, SELFPAY | PROVIDERS: PCP Family Medicine; Visit Provider Specialist | DX: G47.30 Sleep apnea, unspecified (principal); G47.33 Obstructive sleep apnea (adult) (pediatric); G47.52 REM sleep behavior disorder; R09.02 Hypoxemia; R41.3 Other amnesia; Z99.89 Dependence on other enabling machines and devices | CPT/HCPCS: 94762 ==

== ENCOUNTER → 2020-12-21 12:05 | Outpatient (CLI) | payer MEDICARE, SELFPAY ==
[2020-12-21 13:12] LABS: Coronavirus 19 IgG Antibody Negative (Negative); Coronavirus 19 IgM Antibody Negative (Negative)
== END ==
PROVIDERS: Visit Provider Internal Medicine Gastroenterology
DX: Z01.812 Encounter for preprocedural laboratory examination (principal)
CPT/HCPCS: 36415; 86328

== ENCOUNTER 2020-12-23 08:57 | Day surgery (SDC) | payer MEDICARE, SELFPAY ==
[2020-12-18 12:00] VITALS: BMI 30.9
[2020-12-23] VITALS (7 sets, daily range): BP systolic 94–121; BP diastolic 51–77; PULSE 43–57; RESP 16–18; TEMP 36.1–36.4; O2SAT 91–99
--- NOTE | 2020-12-23 10:27 | P.PN_ITS ---
[facility] Anesthesia Checklist - Patient Identification Patient Identification: Arm Band - Structural Data Admitted From: Home Planned Operative Procedure/s: colonoscopy Consent for Planned Operative Procedure(s) Verified: Yes Verified Documents: Surgical Consent, History and Physical - NPO Status Verified Time NPO: 00:00 - Additional verifications Anesthesia Reactions: No - Airway Assessment C-Spine Mobility Assessed: Yes (mp2) TMJ Mobility Assessed: Yes Dentition: Dentures-good fit (upper) - Neurological Assessment Level of Consciousness: Awake, Alert - Anesthesia Plan Anesthesia Risk discussed: Yes Anesthesia Plan: Verified ASA Class: III Anesthesia Type: MAC [facility] History I have reviewed the patient's past medical history: Yes Medical History: Reports:: Atherosclerotic Heart Disease, Hiatal Hernia, Hyperlipidemia, Hypertension, Lung Disease ( black lung ), Myocardial Infarction, Valvular Heart Disease Denies:: Cancer, Diabetes Mellitus Type 1, Diabetes Mellitus Type 2, Internal Pacemaker, MRSA, Seizures *Have you ever received a pneumonia vaccine?: Yes *Have you received a flu vaccine this season?: Yes Other Medical History: Reports: Arthritis, Glaucoma, Other Anesthesia experience/problems:: nac Laterality Cases: Bilateral: Arthroscopy Knee Other Surgeries: Yes: Cardiac Catheterization, Colonoscopy, Hernia Repair. No: Pacemaker Amputation: No Fractures: No - *Social History Last grade of school completed: High school graduate Smoking Status: Never smoker Alcohol Intake: never Substance Use Type: denies use *Occupational Status:: retired, disabled Housing: house Household Members: spouse, family *Travel in the last 8 weeks: None Family Hx:: Heart Attack
--- NOTE | 2020-12-23 11:03 | P.PCN_ITS ---
[facility] Procedure Note Procedure Note:: Colonoscopy Procedure Report: Colonoscopy with cold snare polypectomy Endoscopist: David Medina II, MD Referring physician: Arnaldo Weber MD Date of Procedure: December 23, 2020 Equipment: Olympus 190 variable stiffness pediatric colonoscope Sedation: MAC sedation Indication: Mr. Kern is a 65-year-old gentleman who is here for follow-up screening/surveillance colonoscopy. He did have a colonoscopy 7 to 8 years ago in [place]. The patient reports no abdominal pain, weight loss, change in his bowel habits or rectal bleeding. He reports no family history of colon cancer. His mother had colon polyps. Procedure: Prior to the procedure, a history and physical exam was performed, and patient's medications and allergies were reviewed. The risks, benefits and alternatives of the sedation and procedure were discussed with the patient. All questions were answered and informed consent was obtained. The patient was brought to the procedure room. Patient identification and proposed procedure were verified by the physician and the nurse. The patient was placed in a left lateral decubitus position and the scope was passed under direct vision. Throughout the procedure, the patient's blood pressure, pulse, and oxygen saturations were monitored continuously. The colonoscopy was accomplished without difficulty. The patient tolerated the procedure well. Findings: On digital rectal examination there was normal rectal tone. There were no external hemorrhoids. The prostate was 2+, smooth, soft, symmetric without nodules. The colonoscope was introduced through the anal canal to the rectum and advanced to the cecum. The ileocecal valve and appendiceal orifice were identified. The scope was advanced a short distance into the ileum which appeared grossly normal. The scope was then withdrawn into the colon. There were 2 diminutive polyps (cecum x1 (3 mm) and ascending x1 (4 mm)) which were both removed via cold snare polypectomy. The cecal polyp was not retrieved. The remaining cecum, ascending, transverse, descending, sigmoid and rectum were grossly normal. There were no mucosal abnormalities identified. Upon retroflexion within the rectum there were grade 1-2 internal hemorrhoids.The preparation was excellent throughout with [place] Preparation Score of 9. The cecal time was 12 minutes. Impression: 1. Diminutive colonic polyps x2 2. Grade 1-2 internal hemorrhoids Plan: I will follow up the polyp pathology and recommend repeat colonoscopy again in 7-10 years based upon the polyp histology. I would encourage bulk fiber supplementation on a long-term daily maintenance basis.
== END 2020-12-23 12:01 | disposition home or self-care (01) ==
LOC: OUTP 08:59
PROVIDERS: PCP Family Medicine; Visit Provider Internal Medicine Gastroenterology
PROC: 0DJD8ZZ Inspection of Lower Intestinal Tract, Via Natural or Artificial Opening Endoscopic (ICD-10-PCS; CPT 45378; principal; 2020-12-23 10:30)
DX: Z12.11 Encounter for screening for malignant neoplasm of colon (principal); K63.5 Polyp of colon; K64.0 First degree hemorrhoids; Z83.71 Family history of colonic polyps; I25.10 Atherosclerotic heart disease of native coronary artery without angina pectoris; E78.5 Hyperlipidemia, unspecified; I10 Essential (primary) hypertension; I25.2 Old myocardial infarction; J60 Coalworker's pneumoconiosis; M19.90 Unspecified osteoarthritis, unspecified site; Z82.49 Family history of ischemic heart disease and other diseases of the circulatory system; Z79.899 Other long term (current) drug therapy
CPT/HCPCS: 45385; 88305

== ENCOUNTER → 2021-01-21 07:50 | Outpatient (CLI) | payer OTHER, MEDICARE, SELFPAY ==
--- NOTE | 2021-01-21 12:52 | CT_ITS ---
PROCEDURE: CT CHEST WO CON CLINICAL INDICATION: Pulmonary nodule [place] Prior on pacs COMPARISON: CT CT ANGIO CHEST from 07/12/[address] CHEST WO CON from 07/12/2020 TECHNIQUE: Axial images obtained with sagittal and coronal reformats. All CT scans at the facility use one or more dose reduction, viz: automated exposure control, ma/kV adjustment per patient size (including targeted exams where dose is matched to indication, i.e. head), or iterative reconstruction technique. FINDINGS: HEART AND MEDIASTINAL STRUCTURES: There are coronary artery calcifications noted. There are few small mediastinal lymph nodes. There are several partially calcified lymph nodes in the mediastinum and festus. These do not appear significantly changed. There is a small hiatal hernia. LUNGS AND PLEURAL SPACES: COPD changes with numerous bilateral pulmonary nodules which appear stable compared to the previous exam there is a right upper lobe mass measuring 2.9 x 2.6 x 2.6 cm not significantly changed. This mass has spiculated margins with small surrounding daughter nodules. The previously described ground-glass infiltrates have resolved. There is only some mild mosaic attenuation in the lower lobes which is nonspecific and may be seen with small airway disease. No effusions. No cavitating lesions. No diaphragmatic or pleural plaques. BONY STRUCTURES: No acute bony abnormalities apparent. UPPER ABDOMEN: Small hiatal hernia. Cholelithiasis ADDITIONAL FINDINGS: No other significant abnormalities. IMPRESSION: No change in the numerous bilateral pulmonary nodules and right upper lobe mass. Lung cancer with intrapulmonary metastasis versus metastasis from another source is considered. Suggest PET-CT for further evaluation. Interval resolution of the diffuse ground-glass infiltrates with COPD and persistent mosaic attenuation in the lower lobes. Dictated by: Himanshu Schneider MD 01/23/2021 08:40 Himanshu Schneider MD in [place] 01/23/2021 08:40
== END ==
PROVIDERS: PCP Family Medicine; Visit Provider Internal Medicine Pulmonary Disease
DX: R91.1 Solitary pulmonary nodule (principal); R91.8 Other nonspecific abnormal finding of lung field; R06.09 Other forms of dyspnea
CPT/HCPCS: 71250; 94618

== ENCOUNTER → 2021-03-24 16:11 | Outpatient (CLI) | payer MEDICARE, SELFPAY ==
--- NOTE | 2021-03-24 16:36 | XR_ITS ---
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 He occasionally struck his head on roof of machine. Repetitive strain on neck caused by machine. ; Additional info: Latasha benavides TECHNIQUE: Imaging protocol: XR of the cervical spine. Views: 6 or more views. COMPARISON: PET CT Skull Base to Midthigh 07/22/2020 9:31 AM FINDINGS: Bones/joints: No acute fracture of the cervical spine. No subluxation or dislocation of the cervical spine. Intervertebral disc space narrowing C6/C7 may represent degenerative disc disease.. Anterior osteophyte formation C5 through C7 Posterior osteophyte formation C5 through C7 Degenerative changes in the facets at multiple levels Degenerative changes at C1/C2 Soft tissues: Unremarkable. IMPRESSION: 1. No acute fracture of the cervical spine. 2. No subluxation or dislocation of the cervical spine. 3. Intervertebral disc space narrowing C6/C7 may represent degenerative disc disease..
[2021-03-24 18:35] LABS: Vitamin B12 821 pg/mL (239-931)
== END ==
PROVIDERS: PCP Family Medicine; Visit Provider Nurse Practitioner Family
DX: G31.84 Mild cognitive impairment of uncertain or unknown etiology (principal); G47.33 Obstructive sleep apnea (adult) (pediatric); G47.52 REM sleep behavior disorder; G89.29 Other chronic pain; M54.2 Cervicalgia; R29.2 Abnormal reflex; Z99.89 Dependence on other enabling machines and devices
CPT/HCPCS: 36415; 72052; 82607

== ENCOUNTER → 2021-03-28 14:51 | Outpatient (CLI) | payer MEDICARE, SELFPAY ==
--- NOTE | 2021-03-28 14:51 | MR_ITS ---
PROCEDURE INFORMATION: Exam: MR Cervical Spine Without Contrast Exam date and time: 03/28/2021 2:51 PM Age: 65 years old Clinical indication: Cervicalgia and neck pain. TECHNIQUE: Imaging protocol: Multiplanar magnetic resonance images of the cervical spine without contrast. COMPARISON: CR XR CERVICAL SPINE W FLEX/EXT 03/24/2021 5:02 PM FINDINGS: Vertebrae: Unremarkable. Spinal cord: Normal signal. No cord compression. C2-C3: There is bilateral uncovertebral joint arthropathy, worse on the left. There is moderate left-sided neuroforaminal narrowing. C3-C4: There is mild retrolisthesis at this level. There is a moderate disc/osteophyte complex, partial toward the left, that flattens the ventral thecal sac and compromises the left neural foramen. There is a mild left subarticular disc protrusion. There is mild left-sided neuroforaminal narrowing. There is mild spinal canal stenosis. C4-C5: There is disc desiccation. There is a moderate disc/osteophyte complex that flattens the ventral thecal sac. There is a small central disc protrusion. There is mild spinal canal stenosis. C5-C6: There is disc desiccation. There is a moderate disc/osteophyte complex that flattens the ventral thecal sac. There is a small central disc protrusion. There is moderate bilateral uncovertebral joint arthropathy. There is moderate bilateral neural foraminal narrowing, left worse than right. There is mild/moderate spinal canal stenosis. C6-C7: There is degenerative disc disease including disc space narrowing and dessication. There is a moderate disc/osteophyte complex that flattens the ventral thecal sac. There is a small central disc protrusion. There is moderate bilateral uncovertebral joint arthropathy. There is mild bilateral neuroforaminal narrowing. C7-T1: There is disc desiccation. There is bilateral uncovertebral joint arthropathy, worse on the right. Soft tissues: Unremarkable. IMPRESSION: Multilevel degenerative changes with variable degrees of spinal canal and neuroforaminal narrowing. Please see details above.
== END ==
PROVIDERS: PCP Family Medicine; Visit Provider Specialist
DX: G89.29 Other chronic pain (principal); M54.2 Cervicalgia; R29.2 Abnormal reflex
CPT/HCPCS: 72141; 76376

== ENCOUNTER → 2021-03-31 11:26 | Outpatient (CLI) | payer MEDICARE, SELFPAY | PROVIDERS: PCP Family Medicine; Visit Provider Nurse Practitioner Family | DX: G31.84 Mild cognitive impairment of uncertain or unknown etiology (principal); G47.33 Obstructive sleep apnea (adult) (pediatric); G47.52 REM sleep behavior disorder; J60 Coalworker's pneumoconiosis; Z99.89 Dependence on other enabling machines and devices | CPT/HCPCS: 94762 ==

== ENCOUNTER → 2021-05-13 20:24 | Outpatient (CLI) | payer MEDICARE, OTHER, SELFPAY | PROVIDERS: PCP Family Medicine; Visit Provider Nurse Practitioner Family | DX: G47.33 Obstructive sleep apnea (adult) (pediatric) (principal) | CPT/HCPCS: 95811 ==

== ENCOUNTER → 2021-08-04 12:57 | Outpatient (CLI) | payer MEDICARE, OTHER, SELFPAY ==
[2021-08-04 13:30] VITALS: PULSE 57; PULSE 62
--- NOTE | 2021-08-04 14:26 | CT_ITS ---
PROCEDURE: CT CHEST WO CON CLINICAL INDICATION: 6 month Follow up Follow-up pulmonary nodules COMPARISON: CT CT CHEST WO CON from 07/12/2020 CT,PT PET CT Skull Base to Midthigh from 07/22/[address] CHEST WO CON from 01/21/2021 TECHNIQUE: Axial images obtained with sagittal and coronal reformats. All CT scans at the facility use one or more dose reduction, viz: automated exposure control, ma/kV adjustment per patient size (including targeted exams where dose is matched to indication, i.e. head), or iterative reconstruction technique. FINDINGS: HEART AND MEDIASTINAL STRUCTURES: There are few slightly prominent mediastinal lymph nodes which are unchanged. Partially calcified hilar nodes are present. Coronary artery calcifications. Small hiatal hernia. LUNGS AND PLEURAL SPACES: COPD with centrilobular emphysematous changes. There is scattered numerous bilateral noncalcified pulmonary nodules. The largest nodule is in right upper lobe at 2.8 x 2.62.9 cm not significantly changed. No obvious new nodules apparent. No effusions or infiltrates. There is mild diffuse ground-glass attenuation which may be seen with small airway disease. BONY STRUCTURES: No acute bony abnormalities apparent. UPPER ABDOMEN: There is a small left adrenal nodule anteriorly measuring 15 by 10 mm. This nodules been stable dating back to 07/12/2020. Cholelithiasis ADDITIONAL FINDINGS: No other significant abnormalities. IMPRESSION: No change in the multiple bilateral pulmonary nodules with dominant nodule/mass in the right upper lobe which may be related to metastatic disease or primary lung carcinoma in the right upper lobe with intrapulmonary metastasis. Progressive massive fibrosis is also consideration in this patient with history of coworkers pneumoconiosis. Dictated by: Himanshu Schneider MD 08/05/2021 10:08 Himanshu Schneider MD in [place] 08/05/2021 10:08
== END ==
PROVIDERS: PCP Family Medicine; Visit Provider Internal Medicine Pulmonary Disease
DX: R06.00 Dyspnea, unspecified (principal); J60 Coalworker's pneumoconiosis; R91.8 Other nonspecific abnormal finding of lung field
CPT/HCPCS: 71250; 94060; 94618; 94640; 94727; 94729

== ENCOUNTER → 2021-09-01 12:17 | Outpatient (CLI) | payer MEDICARE, OTHER, SELFPAY ==
--- NOTE | 2021-09-01 12:26 | XR_ITS ---
PROCEDURE: XR CHEST PORTABLE CLINICAL HISTORY: COVID TESTING COMPARISON: CR XR CHEST PORTABLE from 08/10/2020 CR XR CHEST 2V from 08/12/2020 CR XR CHEST 2V from 08/30/[address] CHEST WO CON from 08/04/2021 FINDINGS: The cardiomediastinal silhouette and pulmonary vascularity are within normal limits. Right upper lobe mass at 3 cm with multiple other small pulmonary nodules are once again noted. No definite lobar consolidation or collapse. No acute bony abnormalities. IMPRESSION: Scattered pulmonary nodules with the largest mass in the right upper lobe at 3 cm. No definite infiltrate Dictated by: Himanshu Schneider MD 09/01/2021 13:27 Himanshu Schneider MD in [place] 09/01/2021 13:27
[2021-09-01 13:40] LABS: Basophils # 0.1 K/mm3 (0-0.2); Basophils % 1.1 % (0.1-2.0); Eosinophils # 0.4 K/mm3 (0.0-0.4); Eosinophils % 8.4 % (0.1-12.0); Hematocrit 44.2 % (42.0-52.0); Hemoglobin 15.2 g/dL (14.1-18.0); Lymphocytes # 0.9 K/mm3 (0.7-4.5); Lymphocytes % 19.1 % (10-50); Mean Corpuscular HGB Conc 34.3 g/dL (31.8-35.4); Mean Corpuscular Hemoglobin 31.5 pg (27.0-31.2); Mean Corpuscular Volume 91.9 fl (80-94); Mean Platelet Volume 8.8 fl (7.4-10.4); Monocytes # 0.4 K/mm3 (0.1-1.0); Neutrophils % 62.3 % (37.0-80.0); Platelet Count 191 K/mm3 (142-424); Red Blood Count 4.82 M/mm3 (4.60-6.20); Red Cell Distribution Width 13.5 % (11.5-17.5); White Blood Count 4.9 K/mm3 (4.8-10.8)
== END ==
PROVIDERS: PCP Family Medicine; Visit Provider Family Medicine
DX: Z20.822 Contact with and (suspected) exposure to COVID-19 (principal)
CPT/HCPCS: 71045; 85025

== ENCOUNTER → 2021-09-03 10:40 | Outpatient (CLI) | payer MEDICARE, OTHER, SELFPAY ==
[2021-09-03 11:01] LABS: Coronavirus 19, PCR Not Detected (NotDetected); Influenza A, PCR Not Detected (NotDetected); Influenza B, PCR Not Detected (NotDetected)
== END ==
PROVIDERS: PCP Family Medicine; Visit Provider Family Medicine
DX: Z20.822 Contact with and (suspected) exposure to COVID-19 (principal)
CPT/HCPCS: C9803; U0003; U0005

== ENCOUNTER → 2021-11-01 12:08 | Outpatient (CLI) | payer MEDICARE, OTHER, SELFPAY ==
[2021-11-01 15:10] LABS: Adenovirus,PCR Not Detected (NotDetected); Bordetella Pertussis Not Detected (NotDetected); Chlamydophila Pneumoniae, PCR Not Detected (NotDetected); Coronavirus 229E Not Detected (NotDetected); Coronavirus NL63 Not Detected (NotDetected); Coronavirus OC43 Not Detected (NotDetected); Coronovirus HKU1,PCR Not Detected (NotDetected); Human Metapneumovirus Not Detected (NotDetected); Influenza A, PCR Not Detected (NotDetected); Influenza AH1, 2009 Not Detected (NotDetected); Influenza AH1, PCR Not Detected (NotDetected); Influenza AH3,PCR Not Detected (NotDetected); Influenza B, PCR Not Detected (NotDetected); Mycoplasma Pneumoniae, PCR Not Detected (NotDetected); Parainfluenza 1, PCR Not Detected (NotDetected); Parainfluenza 2, PCR Not Detected (NotDetected); Parainfluenza 3, PCR Not Detected (NotDetected); Parainfluenza 4, PCR Not Detected (NotDetected); Respiratory Syncytial Virus Not Detected (NotDetected); Rhinovirus/Enterovirus Not Detected (NotDetected)
[2021-11-01 15:29] LABS: Basophils # 0.1 K/mm3 (0-0.2); Basophils % 1.1 % (0.1-2.0); Eosinophils # 0.1 K/mm3 (0.0-0.4); Eosinophils % 0.8 % (0.1-12.0); Hematocrit 45.1 % (42.0-52.0); Hemoglobin 14.9 g/dL (14.1-18.0); Lymphocytes # 0.8 K/mm3 (0.7-4.5); Lymphocytes % 12.8 % (10-50); Mean Corpuscular Hemoglobin 31.1 pg (27.0-31.2); Mean Corpuscular Volume 94.2 fl (80-94); Mean Platelet Volume 9.7 fl (7.4-10.4); Monocytes # 0.5 K/mm3 (0.1-1.0); Monocytes % 7.3 % (1.7-9.3); Neutrophils # 5.1 K/mm3 (1.8-7.8); Neutrophils % 77.9 % (37.0-80.0); Platelet Count 198 K/mm3 (142-424); Red Blood Count 4.79 M/mm3 (4.60-6.20); Red Cell Distribution Width 14.3 % (11.5-17.5); White Blood Count 6.6 K/mm3 (4.8-10.8)
[2021-11-01 16:52] LABS: Strep Scrn Group A (Rapid) Negative (Negative)
[2021-11-01 17:49] LABS: Coronavirus 19, PCR Detected (NotDetected)
== END ==
PROVIDERS: PCP Family Medicine; Visit Provider Family Medicine
DX: U07.1 COVID-19 (principal); J02.9 Acute pharyngitis, unspecified
CPT/HCPCS: 36415; 85025; 87430; 87581; 87632; 87798; C9803; U0003; U0005

== ENCOUNTER → 2021-11-07 12:24 | Outpatient (CLI) | payer MEDICARE, OTHER, SELFPAY | PROVIDERS: Visit Provider Nurse Practitioner | DX: U07.1 COVID-19 (principal) | CPT/HCPCS: C9803; U0003; U0005 ==

== ENCOUNTER 2021-12-22 08:07 | Emergency (ER) | payer OTHER, MEDICARE, SELFPAY ==
[2021-12-22 08:08] VITALS: BP 117/59; PULSE 66; RESP 18; TEMP 37; O2SAT 97; BMI 30.7
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
[2021-12-22 08:30] VITALS: BP 117/59; PULSE 58; RESP 20; O2SAT 96
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
[2021-12-22 09:07] VITALS: BP 125/68; PULSE 62; RESP 18; O2SAT 99
[2021-12-22 10:30] VITALS: BP 117/61; PULSE 58; RESP 20; TEMP 37; O2SAT 97
== END 2021-12-22 10:31 | disposition home or self-care (01) ==
PROVIDERS: Emergency Provider Student in an Organized Health Care Education/Training Program
DX: S06.0X9A Concussion with loss of consciousness of unspecified duration, initial encounter (principal); R94.31 Abnormal electrocardiogram [ECG] [EKG]; R07.9 Chest pain, unspecified; M54.2 Cervicalgia; M54.6 Pain in thoracic spine; R51.9 Headache, unspecified; I10 Essential (primary) hypertension; I25.10 Atherosclerotic heart disease of native coronary artery without angina pectoris; I25.2 Old myocardial infarction; E78.5 Hyperlipidemia, unspecified; M19.90 Unspecified osteoarthritis, unspecified site; R06.00 Dyspnea, unspecified; K44.9 Diaphragmatic hernia without obstruction or gangrene; D14.30 Benign neoplasm of unspecified bronchus and lung; H40.9 Unspecified glaucoma; Z79.51 Long term (current) use of inhaled steroids; Z79.82 Long term (current) use of aspirin; Z88.8 Allergy status to other drugs, medicaments and biological substances; Z82.49 Family history of ischemic heart disease and other diseases of the circulatory system; V46.1XXA Car passenger injured in collision with other nonmotor vehicle in nontraffic accident, initial encounter; Y93.89 Activity, other specified
CPT/HCPCS: 70450; 71045; 72125; 72128; 72170; 99285

== ENCOUNTER → 2022-02-25 07:58 | Outpatient (CLI) | payer OTHER, MEDICARE, SELFPAY ==
--- NOTE | 2022-02-25 07:59 | CT_ITS ---
FINAL REPORT TECHNIQUE: Axial CT images were performed from the lung apices through the upper abdomen. Coronal reformats were submitted. This study was performed with techniques to keep radiation doses as low as reasonably achievable (ALARA). Individualized dose reduction techniques using automated exposure control or adjustment of mA and/or kV according to the patient's size were employed. CLINICAL HISTORY: 6 month F/U COMPARISON: August 04, 2021 FINDINGS: There is no axillary adenopathy. There are multiple borderline sized mediastinal nodes. Heart size is normal. There is no pericardial or pleural effusion. Limited images of the upper abdomen demonstrate gallstones in the gallbladder. There is a right upper lobe spiculated mass measuring 3 cm which is stable. There are multiple other small bilateral pulmonary nodules which are all stable in size and appearance. There are patchy bilateral ground-glass opacities which are stable. IMPRESSION: Stable right upper lobe mass and multiple pulmonary nodules of uncertain etiology, may represent post inflammatory change, but neoplasm is not excluded. Cholelithiasis. Reviewed, Interpreted and Dictated by Pérez Ruby III, MD Transcribed by Tri Tripp Authenticated by Pérez Ruby III, MD on 02/25/2022 09:24:[address] [facility]
== END ==
PROVIDERS: PCP Family Medicine; Visit Provider Internal Medicine Pulmonary Disease
DX: R91.8 Other nonspecific abnormal finding of lung field (principal); J60 Coalworker's pneumoconiosis; R06.09 Other forms of dyspnea; J84.10 Pulmonary fibrosis, unspecified
CPT/HCPCS: 71250

== ENCOUNTER → 2022-07-27 11:17 | Outpatient (CLI) | payer MEDICARE, OTHER, SELFPAY | PROVIDERS: PCP Family Medicine; Visit Provider Nurse Practitioner | DX: I25.10 Atherosclerotic heart disease of native coronary artery without angina pectoris (principal); I10 Essential (primary) hypertension; E78.5 Hyperlipidemia, unspecified ==

== ENCOUNTER → 2022-07-30 10:45 | Outpatient (CLI) | payer MEDICARE, OTHER, SELFPAY ==
[2022-07-30 13:08] LABS: Alanine Aminotransferase 40 U/L (12-78); Albumin Level 4.2 g/dl (3.5-5.0); Alkaline Phosphatase 117 U/L (38-126); Aspartate Amino Transferase 39 U/L (17-59); Bilirubin,Direct 0.1 mg/dl (0.0-0.4); Bilirubin,Indirect 0.5 mg/dL (0.0-0.9); Bilirubin,Total 0.6 mg/dl (0.2-1.3); Bilirubin,Unconjugated 0.6 mg/dL (0.0-1.1); Chol/HDL Ratio 2.6 (1-3.5); Cholesterol 95 mg/dl (140-200); HDL Cholesterol 36 mg/dl (40-60); Total Protein,Serum 7.1 g/dl (6.3-8.2); Triglycerides 103 mg/dl (30-150); VLDL Cholesterol 21 mg/dL (0-40)
[2022-07-30 13:19] LABS: Direct LDL Cholesterol 39.46 mg/dL (100-129)
== END ==
PROVIDERS: PCP Family Medicine; Visit Provider Nurse Practitioner
DX: E78.5 Hyperlipidemia, unspecified (principal); I10 Essential (primary) hypertension; I25.10 Atherosclerotic heart disease of native coronary artery without angina pectoris
CPT/HCPCS: 36415; 80061; 80076

== ENCOUNTER → 2022-08-28 12:46 | Outpatient (CLI) | payer MEDICARE, OTHER, SELFPAY ==
--- NOTE | 2022-08-28 12:46 | CT_ITS ---
FINAL REPORT TECHNIQUE: Axial images were obtained through the chest without contrast. CLINICAL HISTORY: Lung nodules, follow-up COMPARISON: 02/25/2022, 08/04/2021 FINDINGS: There are multiple calcified right paratracheal, subcarinal, and bilateral hilar lymph nodes consistent with old granulomatous disease. There is no pericardial or pleural effusion. There is a dominant mass in the right upper lobe of the lung measuring 3.0 x 2.4 cm which is entirely stable as compared to . There are multiple, smaller bilateral noncalcified nodules which are also entirely stable. No new mass or nodule is identified. Limited images of the upper abdomen demonstrate a tiny calcified gallstone in the gallbladder. IMPRESSION: Bilateral upper lobe masses, stable as compared to 08/04/2021. Calcified residual old granulomatous disease. Tiny calcified gallstone in the gallbladder. Reviewed, Interpreted and Dictated by Tan Womack MD Transcribed by Ceci Lechuga Authenticated and [facility]
== END ==
PROVIDERS: PCP Family Medicine; Visit Provider Internal Medicine Pulmonary Disease
DX: R91.8 Other nonspecific abnormal finding of lung field (principal)
CPT/HCPCS: 71250

== ENCOUNTER → 2022-09-07 13:04 | Outpatient (CLI) | payer MEDICARE, SELFPAY ==
[2022-09-07 13:57] LABS: Basophils # 0.1 K/mm3 (0-0.2); Basophils % 1.1 % (0.1-2.0); Eosinophils # 0.2 K/mm3 (0.0-0.4); Eosinophils % 3.2 % (0.1-12.0); Hematocrit 41.2 % (42.0-52.0); Lymphocytes # 1.2 K/mm3 (0.7-4.5); Lymphocytes % 16.9 % (10-50); Mean Corpuscular HGB Conc 34.1 g/dL (31.8-35.4); Mean Corpuscular Hemoglobin 32.2 pg (27.0-31.2); Mean Corpuscular Volume 94.6 fl (80-94); Monocytes # 0.4 K/mm3 (0.1-1.0); Monocytes % 6.2 % (1.7-9.3); Neutrophils # 5.1 K/mm3 (1.8-7.8); Neutrophils % 72.5 % (37.0-80.0); Platelet Count 212 K/mm3 (142-424); Red Blood Count 4.35 M/mm3 (4.60-6.20); Red Cell Distribution Width 13.2 % (11.5-17.5)
== END ==
PROVIDERS: PCP Family Medicine; Visit Provider Nurse Practitioner Family
DX: J98.4 Other disorders of lung (principal); Z20.822 Contact with and (suspected) exposure to COVID-19
CPT/HCPCS: 36415; 85025; C9803; U0003; U0005

== ENCOUNTER → 2023-03-16 09:33 | Outpatient (CLI) | payer MEDICARE, SELFPAY ==
--- NOTE | 2023-03-16 10:52 | RESP.PFTSS ---
Patient unable to do PFT, due to strong coughing during exhalation on FVC. Dr. Arriaga notified.
== END ==
PROVIDERS: PCP Family Medicine; Visit Provider Internal Medicine Pulmonary Disease
DX: R06.02 Shortness of breath (principal)
CPT/HCPCS: 94618

== ENCOUNTER → 2023-06-16 15:04 | Outpatient (CLI) | payer OTHER, MEDICARE, SELFPAY ==
--- NOTE | 2023-06-16 15:04 | CT_ITS ---
FINAL REPORT TECHNIQUE: Axial images were obtained through the chest without contrast. CLINICAL HISTORY: Lung nodules, bilateral, f/u COMPARISON: 08/28/2022 FINDINGS: There small mediastinal nodes present, some of which are calcified. There is a dominant mass in the right upper lobe measuring 3.2 x 2.4 cm in size, stable since the prior CT. There are multiple small scattered nodules, also stable. There are multiple nodules particularly in the left lower lobe, also stable. There is a 12 mm nodule in the posterior right upper lobe seen best on image #103, stable. These are likely postinflammatory. The heart size is normal. There is no pericardial or pleural effusion. A calcified gallstone is present in the gallbladder. IMPRESSION: Dominant mass in the right upper lobe unchanged since the prior CT, along with multiple scattered nodules as described. These are likely postinflammatory. Calcified gallstone is present in the gallbladder. Reviewed, Interpreted and Dictated by Tan Womack MD Transcribed by Leticia Iniguez Authenticated and [facility]
== END ==
PROVIDERS: PCP Family Medicine; Visit Provider Internal Medicine Pulmonary Disease
DX: R91.8 Other nonspecific abnormal finding of lung field (principal)
CPT/HCPCS: 71250

== ENCOUNTER 2023-11-16 08:02 | Outpatient (CLI) | payer MEDICARE, OTHER, SELFPAY ==
[2023-11-16 08:10] LABS: MANUAL DIFFERENTIAL MANUAL DIFFERENTIAL (MANUAL DIFF)
[2023-11-16 08:22] LABS: Basophils % 0.4 % (0.1-2.0); Eosinophils # 0.2 K/mm3 (0.0-0.4); Eosinophils % 2.4 % (0.1-12.0); Hematocrit 42.9 % (42.0-52.0); Hemoglobin 14.9 g/dL (14.1-18.0); Lymphocytes # 1.1 K/mm3 (0.7-4.5); Lymphocytes % 11.5 % (10-50); Mean Corpuscular HGB Conc 34.7 g/dL (31.8-35.4); Mean Corpuscular Hemoglobin 32.8 pg (27.0-31.2); Mean Corpuscular Volume 94.5 fl (80-94); Mean Platelet Volume 9.1 fl (7.4-10.4); Monocytes # 0.5 K/mm3 (0.1-1.0); Neutrophils # 7.7 K/mm3 (1.8-7.8); Neutrophils % 80.8 % (37.0-80.0); Platelet Count 157 K/mm3 (142-424); Red Blood Count 4.54 M/mm3 (4.60-6.20); White Blood Count 9.6 K/mm3 (4.8-10.8)
[2023-11-16 08:54] LABS: Alanine Aminotransferase 30 U/L (12-78); Albumin/Globulin Ratio 1.5 (1.1-1.8); Alkaline Phosphatase 73 U/L (38-126); Anion Gap 9.5 mEq/L (5-15); Aspartate Amino Transferase 32 U/L (17-59); Bilirubin,Total 0.7 mg/dl (0.2-1.3); Blood Urea Nitrogen 17 mg/dl (9-20); Calcium 9.2 mg/dl (8.4-10.2); Carbon Dioxide 27 mmol/L (22.0-30.0); Chloride 106 mmol/L (98-107); Estimated Glomerular Filt Rate 84 ml/min (>60); GFR (African American) 102 ML/MIN (>60); Globulin 2.6 g/dL (1.3-3.2); Glucose 106 mg/dl (74-100); Potassium 4.5 mmoL/L (3.5-5.1); Sodium 138 mmol/L (136-145); Total Protein,Serum 6.6 g/dl (6.3-8.2)
[2023-11-16 09:44] LABS: Eosinophils % 1 % (0-3); Lymphocytes % 12 % (10-50); Monocytes % 7 % (2-9); Neutrophils % 77 % (42-76); Total Cells Counted 100
[2023-11-16 09:45] LABS: Platelet Estimate Normal; RBC Morphology Normal
[2023-11-23 10:34] LABS: Free Valproic Acid (Depakote) 3.5
== END 2023-11-16 23:59 ==
LOC: LAB 08:06
PROVIDERS: PCP Family Medicine; Visit Provider Specialist
DX: I25.10 Atherosclerotic heart disease of native coronary artery without angina pectoris (principal); J84.10 Pulmonary fibrosis, unspecified; R91.8 Other nonspecific abnormal finding of lung field; F39 Unspecified mood [affective] disorder; G47.52 REM sleep behavior disorder; J60 Coalworker's pneumoconiosis
CPT/HCPCS: 36415; 80053; 80165; 85007; 85014; 85018; 85048; 85049

== ENCOUNTER 2023-12-21 12:29 | Outpatient (CLI) | payer OTHER, SELFPAY ==
[2023-12-21 13:40] VITALS: PULSE 60; PULSE 67
[2023-12-21] MEDS: ALBUTEROL 0.083% 2.5 MG/3 ML NEB IH (13:40)
== END 2023-12-21 23:59 ==
LOC: RT 12:29
PROVIDERS: PCP Family Medicine; Visit Provider Internal Medicine Pulmonary Disease
DX: R06.02 Shortness of breath (principal)
CPT/HCPCS: 94060; 94618; 94640; 94726; 94729

== ENCOUNTER 2024-06-22 15:03 | Outpatient (CLI) | payer OTHER, SELFPAY ==
--- NOTE | 2024-06-22 15:04 | CT_ITS ---
FINAL REPORT TECHNIQUE: Axial CT images were performed from the lung apices through the upper abdomen. Coronal reformats were submitted. This study was performed with techniques to keep radiation doses as low as reasonably achievable (ALARA). Individualized dose reduction techniques using automated exposure control or adjustment of mA and/or kV according to the patient's size were employed. CLINICAL HISTORY: Lung nodule follow-up COMPARISON: 02/25/2022 and 06/16/2023 FINDINGS: There are multiple borderline size mediastinal nodes. Multiple calcified mediastinal and hilar nodes are identified. Heart size is normal. There is no pericardial or pleural effusion. Limited images of the upper abdomen are unremarkable. There are multiple bilateral pulmonary nodules, largest in the right upper lobe measures 30 mm. This is stable from previous. Other smaller bilateral nodules are all visually stable. No definite new nodule is identified. IMPRESSION: Stable appearance of the chest, favor sequela of prior mycobacterial/fungal disease. No new abnormality identified. Reviewed, Interpreted and Dictated by Pérez Ruby III, MD Transcribed by Tri Tripp Authenticated and [facility]
== END 2024-06-22 23:59 | disposition home or self-care (01) ==
LOC: RAD 15:04
PROVIDERS: PCP Family Medicine; Visit Provider Internal Medicine Pulmonary Disease
DX: R91.8 Other nonspecific abnormal finding of lung field (principal)
CPT/HCPCS: 71250

== ENCOUNTER 2024-11-14 13:24 | Outpatient (CLI) | payer MEDICARE, OTHER, SELFPAY ==
[2024-11-14 18:11] LABS: Basophils % 0.6 % (0.1-2.0); Eosinophils # 0.1 K/mm3 (0.0-0.4); Eosinophils % 1.8 % (0.1-12.0); Hematocrit 40.7 % (42.0-52.0); Hemoglobin 13.6 g/dL (14.1-18.0); Lymphocytes # 1.1 K/mm3 (0.7-4.5); Lymphocytes % 16.8 % (10-50); Mean Corpuscular HGB Conc 33.4 g/dL (31.8-35.4); Mean Corpuscular Hemoglobin 31.1 pg (27.0-31.2); Mean Corpuscular Volume 92.9 fl (80-94); Monocytes # 0.6 K/mm3 (0.1-1.0); Monocytes % 8.2 % (1.7-9.3); Neutrophils # 4.8 K/mm3 (1.8-7.8); Neutrophils % 72.2 % (37.0-80.0); Platelet Count 177 K/mm3 (142-424); Red Blood Count 4.38 M/mm3 (4.60-6.20); Red Cell Distribution Width 12.5 % (11.5-17.5); White Blood Count 6.7 K/mm3 (4.8-10.8)
[2024-11-14 18:53] LABS: Alanine Aminotransferase 27 U/L (12-78); Albumin/Globulin Ratio 1.5 (1.1-1.8); Alkaline Phosphatase 68 U/L (38-126); Anion Gap 12.8 mEq/L (5-15); Aspartate Amino Transferase 34 U/L (17-59); Bilirubin,Total 0.5 mg/dl (0.2-1.3); Blood Urea Nitrogen 26 mg/dl (9-20); Carbon Dioxide 26 mmol/L (22.0-30.0); Chloride 105 mmol/L (98-107); Estimated Glomerular Filt Rate 75 ml/min (>60); GFR (African American) 90 ML/MIN (>60); Globulin 2.6 g/dL (1.3-3.2); Glucose 86 mg/dl (74-100); Potassium 4.8 mmoL/L (3.5-5.1); Sodium 139 mmol/L (136-145); Total Protein,Serum 6.6 g/dl (6.3-8.2)
[2024-11-14 19:23] LABS: Thyroid Stimulating Hormone 1.72 uIU/mL (0.465-4.68)
[2024-11-14 19:43] LABS: Vitamin B12 837 pg/mL (239-931)
== END 2024-11-14 23:59 | disposition home or self-care (01) ==
LOC: LAB.DROPOF 11-15 13:24
PROVIDERS: PCP Family Medicine; Visit Provider Family Medicine
DX: J98.4 Other disorders of lung (principal); R53.83 Other fatigue
CPT/HCPCS: 80053; 82607; 84443; 85025

== ENCOUNTER 2025-02-13 12:00 | Outpatient (CLI) | payer MEDICARE, OTHER, SELFPAY ==
[2025-02-13 20:00] LABS: Anion Gap 12.9 mEq/L (5-15); Blood Urea Nitrogen 19 mg/dl (9-20); Calcium 9.3 mg/dl (8.4-10.2); Carbon Dioxide 25 mmol/L (22.0-30.0); Chloride 105 mmol/L (98-107); Estimated Glomerular Filt Rate 67 ml/min (>60); GFR (African American) 81 ML/MIN (>60); Glucose 82 mg/dl (74-100); Potassium 4.9 mmoL/L (3.5-5.1); Sodium 138 mmol/L (136-145)
[2025-02-13 20:32] LABS: Prostate Specific Ag Screen 0.5 ng/ml (0.0-4.0)
--- OUTSIDE RECORDS SUMMARY | 2025-02-15 12:53 | XMS_ITS | Data Portability ---
Author Organization [place] - [facility] Address [facility] [place] [address] Assessment No assessment recorded. Plan of Treatment Reminders Order Date Submit Date Provider Last Modified By Organization Details Last Modified Time Details Appointments OV EST 15 2025 09:15A M Kody Cobos Jr, MD Not available Not available Not available Lab [facility], serum or plasma [facility]24 [facility] [address], [address], 11/29/2024 16:33:54 PSA, serum or plasma 2023 024 [email or web address] Not available 11/11/2023 08:14:13 urinalysi s, dipstick 2023 024 [facility] [address], [address], 11/11/2023 08:14:13 PSA, serum or plasma 2022 023 [email or web address] Not available 12/16/2022 08:22:27 Referral None recorded. Procedures bladder scan (PROC) 2023 024 [facility] [address], [address], 11/11/2023 08:14:13 Surgeries None recorded. Imaging None recorded. Medication Orders tamsulosi n 0.4 mg capsule 2024 025 [facility], [address], [place], [address], 11/29/2024 09:55:28 fesoterod ine ER 8 mg tablet,ex tended release 24 hr 2024 025 [email or web address] [facility], [address], [place], [address], 11/29/2024 13:09:28 tamsulosi n 0.4 mg capsule 2023 024 [facility], [address], [place], [address], 11/10/2023 13:50:30 fesoterod ine ER 8 mg tablet,ex tended release 24 hr 2023 024 [facility], [address], [place], [address], 11/10/2023 13:51:21 tamsulosi n 0.4 mg capsule 2022 023 [facility], [address], [place], [address], 11/11/2022 10:56:06 fesoterod ine ER 8 mg tablet,ex tended release 24 hr 2022 023 [facility], [address], [place], [address], 11/11/2022 10:58:13 Patient TargetsNo targets recorded. Patient InstructionsNo instructions recorded. Reason for Referral None Reported. Results Created Date Observation Date Name Description Value Unit Range Abnormal Flag Note LastModifiedBy Organization Detail LastModifiedTime 11/10/1911/10/2023 PROST ATE SPECI FIC AG (PSA) prostate specific Ag (PSA) 0.54 NG/mL 0.0-4. 0 Not Available [facility] (Lab Registration) [address], [place], [address], 11/10/2023 16:42:56 11/10/19 24 11/10/2023 PROST ATE SPECI FIC AG (PSA) note Unles s other gonsales noted testi ng perfo rmed at: [facility] [address] [place] [address] [phone] Gabriel lopez MD CLIA: [id number] Not Available [facility] (Lab Registration) [address] [place], [address], 11/10/2023 16:42:56 11/10/19 24 11/10/2023 urina lysis , dipst ick Leukocytes (reference range) negati ve Not Available [address], [address], 11/10/2023 10:09:17 11/10/19 24 11/10/2023 urina lysis , dipst ick Nitrite (reference range:) negati ve Not Available [address], [address], 11/10/2023 10:09:17 11/10/19 24 11/10/2023 urina lysis , dipst ick Urobilinogen (reference range) 0.2 Not Available [address], [address], 11/10/2023 10:09:17 11/10/19 24 11/10/2023 urina lysis , dipst ick Protein (reference range) negati ve Not Available [address], [address], 11/10/2023 10:09:17 11/10/19 24 11/10/2023 urina lysis , dipst ick pH (reference range 5-8.5) 7.0 Not Available [address], [address], 11/10/2023 10:09:17 11/10/19 24 11/10/2023 urina lysis , dipst ick Blood (reference range:) negati ve Not Available [address], [address], 11/10/2023 10:09:17 11/10/19 24 11/10/2023 urina lysis , dipst ick Specific Standish (reference range) 1.000 Not Available [address], [address], 11/10/2023 10:09:17 11/10/19 24 11/10/2023 urina lysis , dipst ick Ketone (reference range) negati ve Not Available [address], [address], 11/10/2023 10:09:17 11/10/19 24 11/10/2023 urina lysis , dipst ick Bilirubin (reference range) small Not Available [address], [address], 11/10/2023 10:09:17 11/10/19 24 11/10/2023 urina lysis , dipst ick Glucose (reference range) negati ve Not Available [address], [address], 11/10/2023 10:09:17 11/10/19 24 11/10/2023 bladd er scan (PROC ) Calculated Residual Urine: 01 ML Not Available [address], [address], 11/10/2023 10:09:19 Result Notes None recorded. Problems Name Problem SNOMED Code Status Onset Date Resolution Date Notes Provider Name and Address Organization Details Recorded Time Hypertensive disorder 47743631 Active 2022 BRIEN Sands [facility] & [place] 3 16:18:49 Chronic obstructive pulmonary disease 33071872 Active 2022 Adrián myers, [place] [facility] [place] 16:18:54 Gastroesophage al reflux disease 279406514 Active 2022 Adrián myers, BRIEN [place] [facility] [place] 16:18:59 Osteoarthritis 993800241 Active 2022 Adrián myers, BRIEN [place] [facility] [place] 16:19:06 Overactive urinary bladder 437785371 Active 2022 Adrián myers, BRIEN - [facility] [place] 16:19:13 Hyperlipidemia 11167951 Active 2022 Adrián myers, BRIEN - [facility] [place] 16:19:21 Rhinitis 88750895 Active 2022 Adrián myers, BRIEN - [facility] [place] 16:19:29 Nodule of lung 881635723 Active 2022 Adrián myers, BRIEN [place] [facility] [place] 16:19:37 Problem Notes None recorded. Procedures Surgical History Date Name Laterality Status Provider Name and Address Organization Details Recorded Time procedure on knee completed Adrián Mejia [facility] [place] 11/11/2022 10:07:33 Hernia Repair completed Adrián [place]ia [facility] [place] 10/23/2022 16:21:02 cardiac catheterization completed Adrián [place]ia [facility] [place] 10/23/2022 16:21:17 replacement of bilateral knee joints completed Adrián [place]ia [facility] [place] 10/23/2022 16:21:34 Imaging Results None recorded. Procedure Notes None recorded. Medical Equipment None Reported. Allergies Allergen ID Allergen Name Allergen Category Reaction Reaction Severity Criticality Documentation Date Start Date Code Code System Note Provider Name and Address Organization Details Recorded Time 77059 Levaquin medicatio n Not available Not available Not available 10/23/2022 16804 2 RxNorm Adrián myers, BRIEN - [facility] & [place] 3 16:18:24 01700 Augmentin medicatio n Not available Not available Not available 10/23/2022 86835 2 RxNorm BRIEN Sands - [facility] & [place] 3 16:18:30 Medications Name Sig Start Date Stop Date Status Note LastModified by Organization Details LastModified Time latanoprost 0.005 % eye drops INSTILL 1 DROP INTO EACH EYE AT BEDTIME active Not Available Not Available No t Available prednisone 10 mg tablet TAKE 1 TABLET BY MOUTH TWICE DAILY active Not Available Not Available No t Available ipratropium 0.5 mg-albuterol 3 mg (2.5 mg base)/3 mL nebulization soln INHALE THE CONTENTS OF 1 VIAL VIA NEBULIZER FOUR TIMES DAILY NEEDED FOR SHORTNESS OF BREATH OR wheezing active Not Available Not Available Not Available divalproex 250 mg tablet,delay ed release active Not Available Not Available N ot Available benzonatate 200 mg capsule TAKE 1 CAPSULE BY MOUTH THREE TIMES DAILY NEEDED active Not Available Not Available No t Available donepezil 10 mg tablet active Not Available Not Available No t Available clonazepam 0.5 mg tablet TAKE 1 & 1/2 (ONE & ONE-HALF) TABLETS BY MOUTH 30 MINUTES BEFORE BEDTIME FOR REM BEHAVIOR DISORDER MAX DAILY DOSE IS 0.75 MG active Not Available Not Available No t Available amlodipine 5 mg tablet TAKE 1 TABLET BY MOUTH ONCE DAILY FOR HIGH BLOOD PRESSURE active Not Available Not Available No t Available pantoprazole 20 mg tablet,delay ed release TAKE 2 TABLETS BY MOUTH ONCE DAILY AT BEDTIME FOR STOMACH active Not Available Not Available No t Available tamsulosin 0.4 mg capsule Take 1 capsule every day by oral route for 90 days. 2024 active Not Available Not Available Not Avai lable paroxetine 20 mg tablet TAKE ONE TABLET BY MOUTH EVERY MORNING FOR mood disorder active Not Available Not Available No t Available fluoxetine 10 mg capsule TAKE ONE CAPSULE BY MOUTH EVERY MORNING FOR 1 WEEK, THEN TAKE TWO CAPSULES AT night THEREAFTER active Not Available Not Available N ot Available nitroglyceri n 0.4 mg sublingual tablet active Not Available Not Available Not Available diclofenac sodium 75 mg tablet,delay ed release TAKE 1 TABLET BY MOUTH ONCE DAILY FOR ARTHRITIS active Not Available Not Available No t Available montelukast 10 mg tablet TAKE 1 TABLET BY MOUTH ONCE DAILY IN THE EVENING FOR COPD active Not Available Not Available No t Available azelastine 137 mcg (0.1 %) nasal spray USE 2 SPRAYS in each nostril AT bedtime active Not Available Not Available No t Available cefuroxime axetil 500 mg tablet TAKE 1 TABLET BY MOUTH EVERY 12 HOURS active Not Available Not Available No t Available albuterol sulfate HFA 90 mcg/actuatio n aerosol inhaler INHALE 1 PUFF BY MOUTH EVERY 6 HOURS NEEDED FOR SHORTNESS OF BREATH OR wheezing active Not Available Not Available Not Available rosuvastatin 10 mg tablet TAKE 1 TABLET BY MOUTH EVERY OTHER DAY AT BEDTIME FOR CHOLESTEROL active Not Available Not Available Not Available levocetirizi ne 5 mg tablet active Not Available Not Available Not Available fesoterodine ER 8 mg tablet,exten ded release 24 hr Take 1 tablet every day by oral route. 2024 active Not Available Not Available Not Avai lable Anoro Ellipta 62.5 mcg-25 mcg/actuatio n powder for inhalation INHALE 1 PUFF EVERY DAY active Not Available Not Available No t Available Incruse Ellipta 62.5 mcg/actuatio n powder for inhalation INHALE 1 PUFF BY MOUTH EVERY DAY active Not Available Not Available No t Available Trelegy Ellipta 100 mcg-62.5 mcg-25 mcg powder for inhalation INHALE 1 PUFF BY MOUTH EVERY DAY --RINSE MOUTH AFTER USE-- active Not Available Not Available No t Available Vitals Date Recorded Body height Body mass index (BMI) Body weight Body temperature Provider Name and Address Organization Details Last Updated DateTime 11/11/2022 165.1 cm 30.8 kg/m2 36976.59 g 97.5 [degF] Adrián Yun [place] - [place] [facility] & [place] 11/11/2022 10:07:01 Date Recorded Body height Body mass index (BMI) Body weight Body temperature Provider Name and Address Organization Details Last Updated DateTime 11/10/2023 165.1 cm 30 kg/m2 37777.63 g 97.5 [degF] Destini Biggs [place] - [facility] & [place] 11/10/2023 08:50:45 Date Recorded Body height Body mass index (BMI) Body weight Body temperature Provider Name and Address Organization Details Last Updated DateTime 11/29/2024 165.1 cm 30 kg/m2 27804.63 g 97.5 [degF] Melany Gomez [facility] & [place] 11/29/2024 09:23:24 Social History Question Answer Notes LastModified by Organizat ion Details LastModified Time Tobacco Smoking Status Never Smoker Adrián myers, [facility] & [place] 10/23/2022 16:20:52 What Is Your Level Of Alcohol Consumption? None [email or web address] Information not available 10/23/2022 Sex: Unknown Functional Status None recorded. Mental Status None recorded. Family History Relationship Description Onset Age of this Age Resolved Age Notes LastModified by Organization Details LastModified Time Father Family history unknown dec [email or web address] Not available 2022 16:19:57 Mother Family history unknown dec [email or web address] Not available 2022 16:19:57 Medical History No medical history recorded. Past Encounters Encounter ID Performer Location Encounter Start Date Encounter Closed Date Diagnosis/Indication Diagnosis SNOMED-CT Code Diagnosis ICD10 Code Diagnosis Note [id number] Kody Cobos Jr, MD [facility] [address] [address] 11/11/2022 09:44:28 11/11/2022 10:27:12 Benign prostatic hyperplasia with outflow obstruction 080468353 N40.1 Patient with history of BPH. He continues on tamsulosin with good voiding results. We will continue. Urge incon tinence of urine 29085866 N39.41 patient with history of urge incontinen ce. He states this continues to be controlled well with the generic Toviaz 8 mg. We will refill. [id number] Kody Cobos Jr, MD [facility] [address] [address] 11/10/2023 08:47:54 11/10/2023 10:00:04 Benign prostatic hyperplasia with outflow obstruction 300903538 N40.1 Patient with history of BPH. He continues on tamsulosin and is emptying well. He is to continue. Urge incon tinence of urine 35415890 N39.41 patient with history of urge incontinen ce. He states this continues to be controlled well but he continues with some daytime frequency. His bladder scan is 0. He is to continue caffeine restrictio ns and the Toviaz 8 mg. Screening for malignant neoplasm of prostate 346719714 Z12.5 PSA today. [id number] Kody Cobos Jr, MD [facility] [address] [address] 11/29/2024 09:04:19 11/29/2024 09:50:40 Benign prostatic hyperplasia 806489390 N40.0 Benign pro static hyperplasia with outflow obstruction 348204973 N40.1 Patient with history of BPH. He continues on tamsulosin and is emptying well. He is to continue. Urge incon tinence of urine 17539660 N39.41 patient with history of urge incontinen ce. He states this continues to be controlled well but he continues with some daytime frequency. His bladder scan is 0. He is to continue caffeine restrictio ns and the Toviaz 8 mg. Screening for malignant neoplasm of prostate 688002606 Z12.5 PSA last year was 0.5 and we will repeat today. Health Concerns Section Related Observation LastModified by Organization Detai ls LastModified Time None Recorded Concern Status LastModified by Organization Details LastModified Time None Recorded Advance Directives Directive None Recorded Payers Encounter Date Sequence Insurance Name Policy Number Policy Guo Covered Member ID Guo Member ID Guarantor Name 11/11/2022 1 [employer] (MEDICARE REPLACEMENT/AD VANTAGE - PPO) Prashanth Kern [id number] Prashanth Kern 11/10/2023 1 [employer] (MEDICARE REPLACEMENT/AD VANTAGE - PPO) Prashanth Kern [id number] Prashanth Kern 11/29/2024 1 [place]MEDICARE REPLACEMENT HMO) [id number] Prashanth Kern [id number] Prashanth Kern Notes Date Note Type Note Provider Name and Address Organization Details Recorded Time 11/11/2022 text/html patient is a 67-year-old white male a historyOf BPH and urge incontinence. / [facility] February 2022 with me. He states he is doing well on his current regimen of tamsulosin and Toviaz 8 mg. He states he is on the generic of Toviaz. He denies any new urologic problems. His last PSA was 0.20 November 2021. oKdy Cobos Jr, MD [address] [place] [address], [address], [address], [facility] & [place] 11/11/2022 10:58:41 11/10/2023 text/html Patient is a 68-year-old white male with a history of BPH and urge incontinence. He returns for his yearly visit. He continues on tamsulosin and Toviaz 8 mg for his urinary symptoms. States he is doing okay but still some urgency. He is drinking about 1 cola a day. He states he voids every 30 minutes during the day but only gets up at night 1-2 times. His bladder scan today is 0. His last PSA was 0.3 in November 2021. He states he does observe fluid restriction prior to bed. Kody Cobos Jr, MD [address] [place] [address], [address], [address], [facility] - [facility] & [place] 11/10/2023 13:52:40 11/29/2024 text/html patient is a 69-year-old white male with history of BPH, urge incontinence. He returns today yearly follow-up. He continues on tamsulosin for his BPH symptoms and Toviaz 8 mg for his urgency. States that his symptoms are well controlled for the most part but he does have an occasional leak. He has not wear pads. States that the leakage is very small. He is decreased his caffeine intake. Kody Cobos Jr, MD [address] [place] [address], [address], [address], [facility] - [facility] & [place] 11/29/2024 13:21:23
== END 2025-02-13 23:59 | disposition home or self-care (01) ==
LOC: LAB.DROPOF 02-15 12:51
PROVIDERS: PCP Family Medicine; Visit Provider Family Medicine
DX: N40.0 Benign prostatic hyperplasia without lower urinary tract symptoms (principal); I10 Essential (primary) hypertension
CPT/HCPCS: 80048; G0103

== ENCOUNTER 2025-02-28 12:41 | Outpatient (CLI) | payer MEDICARE, OTHER, SELFPAY ==
--- NOTE | 2025-02-28 | CA_ITS ---
APPROVED REPORT EXAM: Comprehensive 2D, Doppler, and color-flow Echocardiogram Hydrologist: Anjali Barros RT(R) Ht: 5 ft 5 in Wt: 181lbs BSA: 1.90 BP: 120/61 mmHg Indications: murmur, SOB, CP, HTN, hyperlipidemia, stage 4 black lung, stent, pulmonary fibrosis, HI, CAD 2D Dimensions LA Volume 40.20 mL LA Volume Index 21.16 mL/m2 (M/F) 16-34 EF AP4 60.40 % GL Strain -22.4 % M-Mode Dimensions RVDd 2.51 cm (0.9-2.6) LA Diam 3.54 cm (1.9-4.0) LVDd 4.37 cm (3.5-5.7) LVDs 3.23 cm (3.5-5.7) IVSd 0.87 cm (0.6-1.1) PWd 0.87 cm (0.6-1.1) EF (Teich) 51.40% FS 26.10% EDV (Teich) 86.30 mL TAPSE 2.11 (<1.7) ESV (Teich) 41.90 mL LV Diastology E Decel Time 227 (160-240 msec) E/A Ratio 1.3 Aortic Valve SOLIS Index 1.04 cm2/m2 AoV Peak Marko. 184.0 (50-130 cm/s) AO Peak GR. 13.50 mmHg AO Mean GR. 6.80 (<5 mmHg) AO VTI 44.0 (18-25 cm) SOLIS (VTI) 2.01 (2.5-4.5 cm2) Mitral Valve MV E Max Marko. 84.0 (40-130 cm/s) MV A Velocity 65.0 (40-130 cm/s) E/A Ratio 1.30 MV PHT 66.0 ms Left Ventricle The left ventricle is normal size. The left ventricular systolic function is normal. The left ventricular ejection fraction is within the normal range. There is increased LV wall thickness. There is normal LV segmental wall motion. The left ventricular diastolic function is normal. LVEF is 60%. Right Ventricle The right ventricle is normal size. The right ventricular systolic function is normal. Atria The left atrium size is normal. The right atrium size is normal. There is no Doppler evidence of interatrial shunt. Aortic Valve Aortic valve is moderately thickened. Aortic sclerosis, but no evidence of hemodynamically significant aortic stenosis. Trace aortic regurgitation. Mitral Valve The mitral valve is normal in structure. No evidence of mitral valve stenosis. Trace mitral regurgitation. Tricuspid Valve Tricuspid valve is grossly normal in structure and function. Trace tricuspid regurgitation. There is insufficient TR jet to estimate RVSP. Trace pulmonic regurgitation. Pulmonic Valve The pulmonary valve is normal in structure. Great Vessels The aortic root is normal in size. IVC is normal in size and collapses >50% with inspiration. Pericardium There is no pericardial effusion. Other Information Study Quality: Fair Conclusion Normal biventricular systolic function. No significant valvular stenosis or regurgitation. Electronically signed by : Tyesha Ingram MD 03/07/2025 00:21:11
--- OUTSIDE RECORDS SUMMARY | 2025-02-28 12:44 | XMS_ITS | Data Portability ---
Author Organization [place] - [facility] Address [facility] [place] [address] Assessment No assessment recorded. Plan of Treatment Reminders Order Date Submit Date Provider Last Modified By Organization Details Last Modified Time Details Appointments OV EST 15 2025 09:15A M Kody Cobos Jr, MD Not available Not available Not available Lab PSA, serum or plasma [facility] [address], [address], 11/29/2024 16:33:54 PSA, serum or plasma 2023 024 [email or web address] Not available 11/11/2023 08:14:13 urinalysi s, dipstick 2023 024 [email or web address] [address], [address], 11/11/2023 08:14:13 PSA, serum or plasma 2022 023 Not available 12/16/2022 08:22:27 Referral None recorded. Procedures bladder scan (PROC) 2023 024 [facility] [address], [address], 11/11/2023 08:14:13 Surgeries None recorded. Imaging None recorded. Medication Orders tamsulosi n 0.4 mg capsule 2024 025 [facility], [address], [place], [address], 11/29/2024 09:55:28 fesoterod ine ER 8 mg tablet,ex tended release 24 hr 2024 025 [email or web address] [facility], [address], [place], [address], 11/29/2024 13:09:28 tamsulosi n 0.4 mg capsule 2023 024 [facility], [address], [place], [address], 11/10/2023 13:50:30 fesoterod ine ER 8 mg tablet,ex tended release 24 hr 2023 024 [facility], [address], [place], [address], 11/10/2023 13:51:21 tamsulosi n 0.4 mg capsule 2022 023 [facility], [address], [place], [address], 11/11/2022 10:56:06 fesoterod ine ER 8 mg tablet,ex tended release 24 hr 2022 023 [facility], [address], [place], [address], 11/11/2022 10:58:13 Patient TargetsNo targets recorded. Patient InstructionsNo instructions recorded. Reason for Referral None Reported. Results Created Date Observation Date Name Description Value Unit Range Abnormal Flag Note LastModifiedBy Organization Detail LastModifiedTime 11/10/1911/10/2023 PROST ATE SPECI FIC AG (PSA) prostate specific Ag (PSA) 0.54 NG/mL 0.0-4. 0 Not Available [facility] (Lab Registration) [address], [place], [address], 11/10/2023 16:42:56 11/10/19 24 11/10/2023 PROST ATE SPECI FIC AG (PSA) note Unles s other gonsales noted testi ng perfo rmed at: [facility] [address] [place] [address] [phone] Gabriel lopez MD CLIA: [id number] Not Available [facility] (Lab Registration) [address] [place], [address], 11/10/2023 16:42:56 11/10/19 24 11/10/2023 urina lysis , dipst ick Leukocytes (reference range) negati ve Not Available [address], [address], 11/10/2023 10:09:17 11/10/19 24 11/10/2023 urina lysis , dipst ick Nitrite (reference range:) negati ve Not Available [address], [address], 11/10/2023 10:09:17 11/10/19 24 11/10/2023 urina lysis , dipst ick Urobilinogen (reference range) 0.2 Not Available [address], [address], 11/10/2023 10:09:17 11/10/19 24 11/10/2023 urina lysis , dipst ick Protein (reference range) negati ve Not Available [address], [address], 11/10/2023 10:09:17 11/10/19 24 11/10/2023 urina lysis , dipst ick pH (reference range 5-8.5) 7.0 Not Available [address], [address], 11/10/2023 10:09:17 11/10/19 24 11/10/2023 urina lysis , dipst ick Blood (reference range:) negati ve Not Available [address], [address], 11/10/2023 10:09:17 11/10/19 24 11/10/2023 urina lysis , dipst ick Specific [place] (reference range) 1.000 Not Available [address], [address], 11/10/2023 10:09:17 11/10/19 24 11/10/2023 urina lysis , dipst ick Ketone (reference range) negati ve Not Available [address], [address], 11/10/2023 10:09:17 11/10/19 24 11/10/2023 urina lysis , dipst ick Bilirubin (reference range) small Not Available [address], [address], 11/10/2023 10:09:17 11/10/19 24 11/10/2023 urina lysis , dipst ick Glucose (reference range) negati ve Not Available [address], [address], 11/10/2023 10:09:17 11/10/19 24 11/10/2023 bladd er scan (PROC ) Calculated Residual Urine: 01 ML Not Available [address], [address], 11/10/2023 10:09:19 Result Notes None recorded. Problems Name Problem SNOMED Code Status Onset Date Resolution Date Notes Provider Name and Address Organization Details Recorded Time Hypertensive disorder 39216821 Active 2022 BRIEN Sands [facility] [place] 3 16:18:49 Chronic obstructive pulmonary disease 43084110 Active 2022 Adrián myers, BRIEN - [facility] - [place] [facility] [place] 3 16:18:54 Gastroesophage al reflux disease 420024297 Active 2022 Adrián myers, BRIEN - [facility] - [place] [facility] [place] 3 16:18:59 Osteoarthritis 156034757 Active 2022 Adrián myers, BRIEN - [facility] - [place] [facility] [place] 3 16:19:06 Overactive urinary bladder 846764500 Active 2022 Adrián myers, BRIEN - [facility] - [place] [facility] [place] 3 16:19:13 Hyperlipidemia 80540013 Active 2022 Adrián myers, BRIEN - [facility] - [place] [facility] [place] 3 16:19:21 Rhinitis 51411771 Active 2022 Adrián myers, BRIEN - [facility] - [place] [facility] [place] 3 16:19:29 Nodule of lung 888051100 Active 2022 Adrián myers, BRIEN - [facility] - [place] [facility] [place] 3 16:19:37 Problem Notes None recorded. Procedures Surgical History Date Name Laterality Status Provider Name and Address Organization Details Recorded Time procedure on knee completed Adrián Mejia [facility] [place] [facility] [place] 11/11/2022 10:07:33 Hernia Repair completed Adrián Mejia [facility] [place] [facility] [place] 10/23/2022 16:21:02 cardiac catheterization completed Adrián Mejia [facility] [place] [facility] [place] 10/23/2022 16:21:17 replacement of bilateral knee joints completed Adrián Mejia [facility] [place] [facility] [place] 10/23/2022 16:21:34 Imaging Results None recorded. Procedure Notes None recorded. Medical Equipment None Reported. Allergies Allergen ID Allergen Name Allergen Category Reaction Reaction Severity Criticality Documentation Date Start Date Code Code System Note Provider Name and Address Organization Details Recorded Time 00530 Levaquin medicatio n Not available Not available Not available 10/23/2022 05504 2 RxNorm Adrián myers, BRIEN - [facility] [place] 3 16:18:24 41587 Augmentin medicatio n Not available Not available Not available 10/23/2022 87054 2 RxNorm BRIEN Sands - [facility] [place] 3 16:18:30 Medications Name Sig Start Date [...] Available divalproex 250 mg tablet,delay ed release TAKE 1 TABLET BY MOUTH TWICE DAILY FOR MOOD CONTROL active Not Available Not Available No t Available benzonatate 200 mg capsule TAKE 1 CAPSULE BY MOUTH THREE TIMES DAILY NEEDED active Not Available Not Available No t Available donepezil 10 mg tablet TAKE 1 TABLET BY MOUTH TWICE DAILY FOR MEMORY active Not Available Not Available No t Available clonazepam 0.5 mg tablet TAKE 1 & 1/2 (ONE & ONE-HALF) TABLETS BY MOUTH AT BEDTIME NIGHTLY FOR PARASOMNIA ADMINISTER 30MIN BEFORE BEDTIME active Not Available Not Available No t Available amlodipine 5 mg tablet TAKE 1 TABLET BY MOUTH ONCE DAILY FOR HIGH BLOOD PRESSURE active Not Available Not Available No t Available pantoprazole 20 mg tablet,delay ed release TAKE 2 TABLETS BY MOUTH ONCE DAILY AT BEDTIME FOR STOMACH active Not Available Not Available No t Available tamsulosin 0.4 mg capsule TAKE 1 CAPSULE BY MOUTH ONCE DAILY active Not Available Not Available No t Available paroxetine 20 mg tablet TAKE ONE TABLET [...] 8 mg tablet,exten ded release 24 hr TAKE 1 TABLET BY MOUTH ONCE DAILY active Not Available Not Available No t Available Anoro Ellipta 62.5 mcg-25 mcg/actuatio n powder [...] Updated DateTime 11/11/2022 165.1 cm 30.8 kg/m2 56505.59 g 97.5 [degF] Adrián Yun [place] - [facility] [place] 11/11/2022 10:07:01 Date Recorded Body height Body mass index (BMI) Body weight Body temperature Provider Name and Address Organization Details Last Updated DateTime 11/10/2023 165.1 cm 30 kg/m2 25749.63 g 97.5 [degF] Destini Biggs [place] - [facility] [place] 11/10/2023 08:50:45 Date Recorded Body height Body mass index (BMI) Body weight Body temperature Provider Name and Address Organization Details Last Updated DateTime 11/29/2024 165.1 cm 30 kg/m2 96126.63 g 97.5 [degF] Melany Gomez [place] - [facility] - [place] [facility] [place] 11/29/2024 09:23:24 Social History None recorded. Functional Status Question Answer Note LastModified by Organization D etails LastModified Time What is your level of alcohol consumption? None [email or web address] Information not available 10/23/2022 Mental Status None recorded. Family History Relationship Description Onset Age of this Age Resolved Age Notes LastModified by Organization Details LastModified Time Father Family history unknown dec [email or web address] Not available 2022 16:19:57 Mother Family history unknown dec [email or web address] Not available 2022 16:19:57 Medical History No medical history recorded. Past Encounters Encounter ID Performer Location Encounter Start Date Encounter Closed Date Diagnosis/Indication Diagnosis SNOMED-CT Code Diagnosis ICD10 Code Diagnosis Note [id number] Kody Cobos Jr, MD [facility] [address] [address] 11/11/2022 09:44:28 11/11/2022 10:27:12 Benign prostatic hyperplasia with outflow obstruction 041272768 N40.1 Patient with history of BPH. He continues on tamsulosin with good voiding results. We will continue. Urge incon tinence of urine 83243206 N39.41 patient with history of urge incontinen ce. He states this continues to be controlled well with the generic Toviaz 8 mg. We will refill. [id number] Kody Cobos Jr, MD [facility] [address] [address] 11/10/2023 08:47:54 11/10/2023 10:00:04 Benign prostatic hyperplasia with outflow obstruction 155600814 N40.1 Patient with history of BPH. He continues on tamsulosin and is emptying well. He is to continue. Urge incon tinence of urine 88809425 N39.41 patient with history of urge incontinen ce. He states this continues to be controlled well but he continues with some daytime frequency. His bladder scan is 0. He is to continue caffeine restrictio ns and the Toviaz 8 mg. Screening for malignant neoplasm of prostate 243727212 Z12.5 PSA today. [id number] Kody Cobos Jr, MD [facility] [address] [address] 11/29/2024 09:04:19 11/29/2024 09:50:40 Benign prostatic hyperplasia 430407374 N40.0 Benign pro static hyperplasia with outflow obstruction 550018053 N40.1 Patient with history of BPH. He continues on tamsulosin and is emptying well. He is to continue. Urge incon tinence of urine 23876211 N39.41 patient with history of urge incontinen ce. He states this continues to be controlled well but he continues with some daytime frequency. His bladder scan is 0. He is to continue caffeine restrictio ns and the Toviaz 8 mg. Screening for malignant neoplasm of prostate 837261589 Z12.5 PSA last year was 0.5 and we will repeat today. Health Concerns Section Related Observation LastModified by Organization Detai ls LastModified Time None Recorded Concern Status LastModified by Organization Details LastModified Time None Recorded Advance Directives Directive None Recorded Payers Insurance Date Sequence Insurance Name Policy Number Policy Guo Covered Member ID Guo Member ID Guarantor Name 11/29/2024 1 [employer] (MEDICARE REPLACEMENT/AD VANTAGE - PPO) Prashanth Kern [id number] Prashanth Kern 11/29/2024 1 BC[employer]: [place] (MEDICARE REPLACEMENT HMO) [id number] Prashanth Kern [id number] Prashanth Kern Notes Date Note Type Note Provider Name and Address Organization Details Recorded Time 11/11/2022 text/html patient is a 67-year-old white male a historyOf BPH and urge incontinence. / visit was at [facility] in February 2022 with me. He states he is doing well on his current regimen of tamsulosin and Toviaz 8 mg. He states he is on the generic of Toviaz. He denies any new urologic problems. His last PSA was 0.20 November 2021. Kody Cobos Jr, MD [address] [place] [address], [address], [place], [address], [facility] 11/11/2022 10:58:41 11/10/2023 text/html Patient is a [...] prior to bed. Kody Cobos Jr, MD [address] [place] [address], [address], [address], [facility] - [facility] [place] 11/10/2023 13:52:40 11/29/2024 text/html patient is a [...] his caffeine intake. Kody Cobos Jr, MD [address], [address], [place], [address], [facility] - [facility] [place] 11/29/2024 13:21:23
== END 2025-02-28 23:59 | disposition home or self-care (01) ==
LOC: RT 12:42
PROVIDERS: PCP Family Medicine; Visit Provider Physician Assistant
DX: I21.9 Acute myocardial infarction, unspecified (principal); E78.5 Hyperlipidemia, unspecified; I10 Essential (primary) hypertension; J60 Coalworker's pneumoconiosis; J84.10 Pulmonary fibrosis, unspecified; R01.1 Cardiac murmur, unspecified
CPT/HCPCS: 93306

== ENCOUNTER 2025-06-12 11:44 | Outpatient (CLI) | payer MEDICARE, SELFPAY ==
[2025-06-12 15:19] LABS: Hematocrit 42.0 % (42.0-52.0); Hemoglobin 14.3 g/dL (14.1-18.0); Immature Granulocytes % 0.5 %; Mean Corpuscular HGB Conc 34.0 g/dL (31.8-35.4); Mean Corpuscular Hemoglobin 31.7 pg (27.0-31.2); Mean Corpuscular Volume 93.1 fl (80-94); Nucleated Red Blood Cells % 0 %; Platelet Count 178 K/mm3 (142-424); Red Blood Count 4.51 M/mm3 (4.60-6.20); Red Cell Distribution Width-SD 41.2 fL; White Blood Count 5.9 K/mm3 (4.8-10.8)
[2025-06-12 15:50] LABS: Alanine Aminotransferase 21 U/L (12-78); Albumin Level 4.1 g/dl (3.5-5.0); Albumin/Globulin Ratio 1.6 (1.1-1.8); Alkaline Phosphatase 66 U/L (38-126); Anion Gap 12.7 mEq/L (5-15); Aspartate Amino Transferase 31 U/L (17-59); Bilirubin,Total 0.8 mg/dl (0.2-1.3); Blood Urea Nitrogen 17 mg/dl (9-20); Calcium 9.1 mg/dl (8.4-10.2); Carbon Dioxide 27 mmol/L (22.0-30.0); Chloride 102 mmol/L (98-107); Creatinine,Serum 1.00 mg/dl (0.66-1.25); Estimated Glomerular Filt Rate 74 ml/min (>60); GFR (African American) 90 ML/MIN (>60); Globulin 2.6 g/dL (1.3-3.2); Glucose 85 mg/dl (74-100); Potassium 4.7 mmoL/L (3.5-5.1); Sodium 137 mmol/L (136-145); Total Protein,Serum 6.7 g/dl (6.3-8.2)
--- OUTSIDE RECORDS SUMMARY | 2025-06-13 13:20 | XMS_ITS | Patient Health Record ---
Author Organization [facility] Address [address] [place] [address] Care Team Providers Care Surgical Specialist Name Role Phone Evert Strauss Primary Care Provider Allergies Allergen (clinical drug ingredient) Drug/Non Drug Allergy documented on EMR Reaction Allergy Type Onset Date Status Levaquin (uncoded) headaches, nausea,vomiting Allergy Active amoxicillin / clavulanate Augmentin nausea Drug Allergy Active Reason For Referral No Information Medications Medication SIG (Take, Route, Frequency, Duration) Notes Start Date End Date Status Protonix 40 MG 1 tablet Orally Once a day; Duration: 90 Active Levocetirizine Dihydrochloride 5 MG TAKE 1 TABLET EVERY DAY; Duration: 90 Active Crestor 10 MG TAKE 1 TABLET EVERY DAY; Duration: 90 Active amLODIPine Besylate 5 MG TAKE 1 TABLET E VERY ; Duration: 90 Active Diclofenac Sodium 75 MG TAKE 1 TABLET EV MINA; Duration: 90 Active ASA 81 1 tab Oral qd Active Lumigan 003 1 drop into affected eye in the evening Ophthalmic Once a day; Duration: 90 days Active Melatonin 3 MG 1 tablet at bedtime as needed with food Orally Once a day Active Symbicort 160-4.5 MCG/ACT 2 puffs Inhala tion Twice a day Active Xyzal 5 MG 1 tablet in the even ing Orally Once a day; Duration: 90 days Active Albuterol Sulfate HFA 108 (90 Base) MCG/ACT 2 puffs as needed Inhalation every 4 hrs Active Trospium Chloride 20 MG 1 tablet at bedt chelsey on an empty stomach Orally Once a day Unknown Nitrostat 0.4 MG 1 tablet Sublingual DIRECTED; Duration: 90 days Active Ventolin HFA 108 (90 Base) MCG/ACT 2 puffs as needed Inhalation every 4 hrs Unknown Diclofenac 75 1 capsule Orally qd; Duration: 90 days Active Tamsulosin HCl 0.4 MG 1 capsule Orally O nce a day 10/16/2019 Unknown Aricept 10 MG 1 tablet at bedtime Orally Once a day Active Vitamin E 100 UNIT 1 capsule Orally Onc e a day Active Singulair 10 MG TAKE 1 TABLET IN THE EVENING; Duration: 90 Active Problems Problem Type SNOMED Code ICD Code Onset Dates Problem Status W/U Status Risk Notes Problem Benign essential hypertension (0118729) Essential hypertension, benign (401.1) Active confirmed Problem Essential hypertension (87503673) Unspecified essential hypertension (401.9) Active confirmed Problem Hyperlipidemia (00333338) Hyperlipidemia, unspecified (E78.5) Active confirmed Problem Chronic obstructive pulmonary disease (67149048) Chronic obstructive pulmonary disease, unspecified (J44.9) Active confirmed Plan Of Treatment Pending Test Test Name Order Date Lipids, Total, Serum 07/24/2015 Lipids, Total, Serum 08/23/2015 Lipids, Total, Serum 11/25/2015 Lipids, Total, Serum 02/03/2017 Lipids, Total, Serum 09/06/2017 Lipids, Total, Serum 05/02/2018 Lipids, Total, Serum 05/17/2017 Lipids, Total, Serum 09/16/2016 Lipids, Total, Serum 04/13/2016 Liver Function Test (LFT) 11/25/2015 Liver Function Test (LFT) 07/24/2015 Liver Function Test (LFT) 08/23/2015 CBC With Differential/Platelet 5 CBC With Differential/Platelet 5 CBC With Differential/Platelet 0 Lipid Panel 09/04/2019 Lipid Panel 04/03/2020 Comp. Metabolic Panel (14) 04/03/2020 PSA Total+ Free 08/23/2015 Basic Metabolic Panel (7) 11/25/2015 Basic Metabolic Panel (7) 07/24/2015 Basic Metabolic Panel (7) 08/23/2015 Basic Metabolic Panel (7) 04/13/2016 Basic Metabolic Panel (7) 09/16/2016 PSA 07/24/2015 PSA 12/16/2018 PSA 09/04/2019 Liver Function Test 02/03/2017 Liver Function Test 09/16/2016 Liver Function Test 03/03/2017 Liver Function Test 04/13/2016 BASIC METABOLIC PANEL 02/03/2017 COMPREHENSIVE METABOLIC PANEL 09/04/2019 COMPREHENSIVE METABOLIC PANEL 09/06/2017 COMPREHENSIVE METABOLIC PANEL 05/02/2018 COMPREHENSIVE METABOLIC PANEL 05/17/2017 CBC (H/H, RBC, INDICES, WBC, PLT) 2017 CBC (H/H, RBC, INDICES, WBC, PLT) 2016 CBC (H/H, RBC, INDICES, WBC, PLT) 2018 CBC (H/H, RBC, INDICES, WBC, PLT) 2016 CBC (H/H, RBC, INDICES, WBC, PLT) 2016 CBC (INCLUDES DIFF/PLT) 11/25/2015 CBC (INCLUDES DIFF/PLT) 09/16/2016 CBC (INCLUDES DIFF/PLT) 04/13/2016 Insurance Providers Payer Name Payer Address Payer Phone Subscriber Number Group Number Insured Name Patient Relationship to Insured Coverage Start Date Coverage End Date [employer] [address] [address] [place], [place] [id number] [phone] [id number] Prashanth Kern Self - patient is the insured Medicare RHC [address] [facility] [address] [place] [address] [id number] Prashanth Kern Self - patient is the insured Medical (General) History Medical History History ICD Code lung swvc578.6 pulmonary nodule shelter meds knee pain low back pain thoracic back pain neck pain unspecified glaucoma esophageal reflux copd htn hyperlipidemia
== END 2025-06-12 23:59 | disposition home or self-care (01) ==
LOC: LAB.DROPOF 06-13 13:16
PROVIDERS: PCP Family Medicine; Visit Provider Family Medicine
DX: F39 Unspecified mood [affective] disorder (principal); I10 Essential (primary) hypertension; Z86.79 Personal history of other diseases of the circulatory system
CPT/HCPCS: 80053; 85025

== ENCOUNTER 2025-06-19 07:51 | Outpatient (CLI) | payer MEDICARE, SELFPAY ==
--- OUTSIDE RECORDS SUMMARY | 2025-06-19 07:54 | XMS_ITS | Patient Health Record ---
Author Organization [facility] Address [address] [place] [address] Care Team Providers Care Youth Services Librarian Name Role Phone Evert Strauss Primary Care [...] Status Risk Notes Problem Benign essential hypertension (4227660) Essential hypertension, benign (401.1) Active confirmed Problem Essential hypertension (40673213) Unspecified essential hypertension (401.9) Active confirmed Problem Hyperlipidemia (44680589) Hyperlipidemia, unspecified (E78.5) Active confirmed Problem Chronic obstructive pulmonary disease (03492204) Chronic obstructive pulmonary disease, unspecified (J44.9) Active confirmed Plan Of Treatment Pending Test Test Name Order Date Lipids, Total, Serum 07/24/2015 Lipids, Total, Serum 08/23/2015 Lipids, Total, Serum 11/25/2015 Lipids, Total, Serum 04/13/2016 Lipids, Total, Serum 09/16/2016 Lipids, Total, Serum 02/03/2017 Lipids, Total, Serum 05/17/2017 Lipids, Total, Serum 09/06/2017 Lipids, Total, Serum 05/02/2018 Liver Function Test (LFT) 11/25/2015 Liver Function Test (LFT) 07/24/2015 Liver Function Test (LFT) 08/23/2015 CBC With Differential/Platelet 5 CBC With Differential/Platelet 5 CBC With Differential/Platelet 0 Lipid Panel 04/03/2020 Lipid Panel 09/04/2019 Comp. Metabolic Panel (14) 04/03/2020 PSA Total+ Free 08/23/2015 Basic Metabolic Panel (7) 11/25/2015 Basic Metabolic Panel (7) 04/13/2016 Basic Metabolic Panel (7) 07/24/2015 Basic Metabolic Panel (7) 08/23/2015 Basic Metabolic Panel (7) 09/16/2016 PSA 07/24/2015 PSA 09/04/2019 PSA 12/16/2018 Liver Function Test 04/13/2016 Liver Function Test 02/03/2017 Liver Function Test 03/03/2017 Liver Function Test 09/16/2016 BASIC METABOLIC PANEL 02/03/2017 COMPREHENSIVE METABOLIC PANEL 05/17/2017 COMPREHENSIVE METABOLIC PANEL 09/06/2017 COMPREHENSIVE METABOLIC PANEL 05/02/2018 COMPREHENSIVE METABOLIC PANEL 09/04/2019 CBC (H/H, RBC, INDICES, WBC, PLT) 2018 CBC (H/H, RBC, INDICES, WBC, PLT) 2017 CBC (H/H, RBC, INDICES, WBC, PLT) 2016 CBC (H/H, RBC, INDICES, WBC, PLT) 2016 CBC (H/H, RBC, INDICES, WBC, PLT) 2016 CBC (INCLUDES DIFF/PLT) 09/16/2016 CBC (INCLUDES DIFF/PLT) 04/13/2016 CBC (INCLUDES DIFF/PLT) 11/25/2015 Insurance Providers Payer Name Payer Address Payer Phone Subscriber Number Group Number Insured Name Patient Relationship to Insured Coverage Start Date Coverage End Date [employer] [address] [address] [place], [place] [id number] [phone] [id number] Prashanth Kern Self - patient is the insured Medicare RHC 1 [facility] [address] [place] [address] [phone] [id number] Prashanth Kern Self - patient is the insured Medical (General) History Medical History History ICD Code lung [id number] pulmonary nodule detention meds knee pain low back pain thoracic back pain neck pain unspecified glaucoma esophageal reflux copd htn hyperlipidemia
--- NOTE | 2025-06-19 08:00 | CA_ITS ---
FINAL REPORT TECHNIQUE: Infante scale, color and spectral doppler images of the bilateral carotid arteries were obtained. CLINICAL HISTORY: JAMIL,BRUIT,HTN COMPARISON: None FINDINGS: Peak systolic velocity in the right internal carotid artery is 95 cm/sec. The internal carotid to common carotid artery ratio is 1.14. There is no significant carotid artery stenosis and minimal plaque formation. The right vertebral artery is normal in direction. Peak systolic velocity in the left internal carotid artery is 97 cm/sec. The internal carotid to common carotid artery ratio is 1.5. There is no significant carotid artery stenosis and minimal plaque formation. The left vertebral artery is normal in direction. IMPRESSION: No ultrasound evidence of hemodynamically significant carotid artery stenosis. Normal peak systolic velocities and normal internal to common carotid artery ratios bilaterally. Reviewed, Interpreted and Dictated by Tan Womack MD Transcribed by Leticia Iniguez Authenticated and [facility]
== END 2025-06-19 23:59 | disposition home or self-care (01) ==
LOC: RT 07:51
PROVIDERS: PCP Family Medicine; Visit Provider Family Medicine
DX: I65.23 Occlusion and stenosis of bilateral carotid arteries (principal); I10 Essential (primary) hypertension
CPT/HCPCS: 93880